=== PATIENT | female | born 1965 | race Caucasian/White ===

== ENCOUNTER → 2016-04-28 | Outpatient (CLI) | payer MEDICARE ==
--- NOTE | 2016-04-28 12:14 | WWHP ---
DATE OF SERVICE: 04/28/2016 CHIEF COMPLAINT: The patient is here for her routine gynecologic exam and mammogram. HPI: This is a 51-year-old G2, P2 with an LMP of 1996. She is status post vaginal hysterectomy for benign reasons. She states she has infrequent hot flashes. She has noticed some vaginal dryness recently. She was treated for bacterial vaginosis on a couple of occasions. She started having some symptoms following taking antibiotics for some other reason. She was tested for STDs by her primary care physician per the patient. She states that the symptoms finally did resolve after taking probiotics and Flagyl. She is currently without complaints. PAST MEDICAL HISTORY: Chronic hypertension, chronic back problems, depression and elevated cholesterol. Dr. Hernandez is her primary care physician. MEDICATIONS: 1. [place] one t.i.d. 2. Norvasc 10 mg daily. 3. Omeprazole 20 mg daily. 4. Lexapro 5 mg daily. 5. Lyrica 300 mg q.h.s. 6. Simvastatin 40 mg q.h.s. 7. Diclofenac potassium 50 mg weekly. Allergies to FLEXERIL, which caused mouth sores and BACTRIM, which caused muscle pain. PAST SURGICAL HISTORY: Vaginal hysterectomy in 1996, numerous back surgeries in the past, spinal cord stimulator in 1997, umbilical hernia repair 2014, colonoscopy 2013 and she has had about 4 of them in her lifetime and a previous benign breast biopsy. PAST OB HISTORY: Two vaginal deliveries. PAST [employer] HISTORY: She is status post vaginal hysterectomy for endometriosis and painful periods. She has no history of STDs. SOCIAL HISTORY: She smokes about 1 pack of cigarettes per day and has about 12 alcoholic drinks per week. She denies drug use. She is and has been with her boyfriend since 06/2015 and does not live with him. She is considered disabled. FAMILY HISTORY: Mother had colon cancer. Paternal grandmother had breast cancer. Father had an [place]. REVIEW OF SYSTEMS: She states she lost about 30 pounds during her divorce that was finalized last year. She has gained some of it back and is still done about 20 pounds from her original weight. She denies respiratory, cardiac, or GI problems. PHYSICAL EXAM: Blood pressure 127/67. Height 5 feet 9 inches. Weight 151 pounds. Temperature 97.2, pulse 69. This is a well-developed, well-nourished white female who is alert and oriented x3 in no acute distress. HEENT is within normal limits. NECK: Supple without mass or thyromegaly. CHEST AND LUNGS: Clear to auscultation. HEART: Regular rate and rhythm. Breasts are without mass or discharge. Axillary exam is negative for adenopathy. BACK: Negative for CVA tenderness. ABDOMEN: Soft, nontender, without palpable masses. PELVIC EXAM: External genitalia appears normal without significant atrophy. Vagina appears normal without significant atrophy. There is no unusual discharge. There is no evidence of prolapse. Bimanual exam is negative for mass or tenderness. Rectovaginal exam is negative for mass or tenderness and is negative for occult blood. EXTREMITIES: Nontender. IMPRESSION: 1. A 51-year-old female who is probably perimenopausal who is status post vaginal hysterectomy for benign reasons with normal gynecologic exam. 2. History of bacterial vaginosis symptoms, which was treated with resolved symptoms and no current evidence of vaginitis. PLAN: 1. Pap smears have been discontinued. 2. Self breast examination was discussed. 3. Mammogram will be done today. 4. The patient will call if she is developing vaginitis symptoms. 5. Osteoporosis prevention was discussed. 6. She will return in one year. [facility]
--- NOTE | 2016-04-29 07:30 | MM ---
Reason for exam: screening (asymptomatic). Last mammogram was performed 1 year and 1 month ago. History: Patient is postmenopausal. Family history of breast cancer in grandmother. Benign stereotactic core biopsy of the right breast, May 19, 2001. Core biopsy of the right breast. Excisional biopsy of the right breast. Physical Findings: A clinical breast exam by your physician is recommended on an annual basis and results should be correlated with mammographic findings. MG 3D Screening Mammo W/Cad Bilateral CC and MLO view(s) were taken. Prior study comparison: March 18, 2015, bilateral MG screening mammo w CAD. December 06, 2013, bilateral MG screening mammo w CAD. February 16, 2013, left diagnostic mammogram w/CAD. The breast tissue is heterogeneously dense. This may lower the sensitivity of mammography. Previous mammotome biopsy in the right breast. There is no discrete abnormality. ASSESSMENT: Negative, BI-RAD 1 RECOMMENDATION: Routine screening mammogram of both breasts in 1 year.
== END ==
LOC: WWCWWP 09:44
PROVIDERS: ATTEND Obstetrics & Gynecology
DX: Z12.31 Encounter for screening mammogram for malignant neoplasm of breast (principal)
CPT/HCPCS: 77063; G0202

== ENCOUNTER → 2016-06-29 | Outpatient (CLI) | payer MEDICARE, OTHER ==
--- NOTE | 2016-06-30 08:28 | XR ---
EXAMINATION TYPE: XR knee complete RT DATE OF EXAM: 06/29/2016 4:33 PM COMPARISON: NONE HISTORY: Pain TECHNIQUE: Four views are submitted. FINDINGS: Hypertrophic change and narrowing of the medial compartment of the knee and patellofemoral joint note d.. Osseous structures are intact. No acute fracture seen. IMPRESSION: 1. No acute fracture or dislocation. 2. Osteoarthritis
== END | disposition home or self-care (01) ==
LOC: RADXRMAIN 16:21
PROVIDERS: ATTEND Nurse Practitioner Family
DX: M17.11 Unilateral primary osteoarthritis, right knee (principal)

== ENCOUNTER → 2016-10-12 | Outpatient (CLI) | payer MEDICARE ==
--- NOTE | 2016-10-12 10:43 | XR ---
EXAMINATION TYPE: XR cervical spine comp DATE OF EXAM: 10/12/2016 COMPARISON: NONE HISTORY: Pain TECHNIQUE: Four views are submitted. FINDINGS: The odontoid is intact. There are no compression deformities. The prevertebral soft tissue structur es are within normal limits. Degenerative disc disease C6-C7 with mild facet arthropathy. Calcificat ion soft tissue the neck likely related carotid artery. IMPRESSION: 1. Degenerative disc disease and facet arthropathy C6-C7. Suggestion of posterior spondylosis which m ay be associated with canal stenosis or foraminal encroachment. Consider MRI follow-up.
== END | disposition home or self-care (01) ==
LOC: RAD 10:04
PROVIDERS: ATTEND Family Medicine
DX: M50.123 Cervical disc disorder at C6-C7 level with radiculopathy (principal); M46.92 Unspecified inflammatory spondylopathy, cervical region
CPT/HCPCS: 72050

== ENCOUNTER → 2016-12-29 | Outpatient (CLI) | payer MEDICARE, OTHER ==
--- NOTE | 2016-12-29 11:20 | XR ---
EXAMINATION TYPE: XR chest 2V DATE OF EXAM: 12/29/2016 COMPARISON: Prior chest x-ray 10/17/2015 HISTORY: Lobar pneumonia TECHNIQUE: Frontal and lateral views of the chest are obtained. FINDINGS: There is no focal air space opacity, pleural effusion, or pneumothorax seen. The cardiac silhouette size is within normal limits. Thoracic cord stimulator is in place as on prior exam. The osseous structures are intact. IMPRESSION: No acute cardiopulmonary process.
== END | disposition home or self-care (01) ==
LOC: RADXRMAIN 10:41
PROVIDERS: ATTEND Physician Assistant
DX: J18.1 Lobar pneumonia, unspecified organism (principal)
CPT/HCPCS: 71020

== ENCOUNTER → 2017-09-08 | Outpatient (CLI) | payer MEDICARE ==
--- NOTE | 2017-09-09 10:58 | MM ---
Reason for exam: screening (asymptomatic). Last mammogram was performed 1 year and 4 months ago. History: Patient is postmenopausal. Family history of breast cancer in grandmother. Benign stereotactic core biopsy of the right breast, May 19, 2001. Core biopsy of the right breast. Excisional biopsy of the right breast. Physical Findings: A clinical breast exam by your physician is recommended on an annual basis and results should be correlated with mammographic findings. MG 3D Screening Mammo W/Cad Bilateral CC and MLO view(s) were taken. Prior study comparison: April 28, 2016, bilateral MG 3d screening mammo w/cad. March 18, 2015, bilateral MG screening mammo w CAD. The breast tissue is heterogeneously dense. This may lower the sensitivity of mammography. There is no discrete abnormality. No significant changes when compared with prior studies. ASSESSMENT: Negative, BI-RAD 1 RECOMMENDATION: Routine screening mammogram of both breasts in 1 year.
== END | disposition home or self-care (01) ==
LOC: RADMAMWWP 16:13
PROVIDERS: ATTEND Family Medicine
DX: Z12.31 Encounter for screening mammogram for malignant neoplasm of breast (principal)
CPT/HCPCS: 77063; 77067

== ENCOUNTER → 2018-07-01 | Outpatient (CLI) | payer MEDICARE ==
--- NOTE | 2018-07-01 10:17 | XR ---
EXAMINATION TYPE: XR ribs bilat w pa chest xray DATE OF EXAM: 07/01/2018 COMPARISON: NONE HISTORY: Pain TECHNIQUE: PA view the chest and 8 views of the bilateral ribs are submitted FINDINGS: There is a stimulator device overlying the vertebral column. No pneumothorax. Lungs are jey ar. Heart size normal. Rib cage is intact. IMPRESSION: No acute displaced rib fracture.
== END ==
LOC: RADXRMAIN 09:44
PROVIDERS: ATTEND Physician Assistant
DX: R07.89 Other chest pain (principal)
CPT/HCPCS: 71111

== ENCOUNTER → 2019-12-25 | Outpatient (CLI) | payer MEDICARE ==
--- NOTE | 2019-12-25 12:11 | CT ---
EXAMINATION TYPE: CT cervical spine wo con DATE OF EXAM: 12/25/2019 COMPARISON: Cervical spine x-ray October 12, 2016 HISTORY: Cervical spondylosis with radiculopathy. Neck pain right side with left arm numbness, recent injury, pain stimulator CT DLP: 476 mGycm. Automated Exposure Control for Dose Reduction was Utilized. TECHNIQUE: CT scan of the cervical spine is obtained without contrast, axial images are obtained, sa gittal and coronal reformatted images are also reviewed. FINDINGS: Cervical spine is visualized in its entirety from C1 through upper thoracic levels, subtle grade 1 retrolisthesis C5 on C6 and C6 on C7 stable from 2017. Prevertebral soft tissue appears with in normal limits. The C1-C2 articulation is within normal limits on the coronal images. Vertebral earnestine dy heights are maintained. Mild to moderate disc space narrowing and spurring C6-C7 level. Posterior spurring effaces the anterior thecal sac at this level. Review of axial images shows C2-C3 level to appear within normal limits. Axial images at C3-C4 level show uncovertebral facet degenerative changes bilaterally causing mild-to -moderate right-sided neural foraminal narrowing. Broad-based posterior central disc protrusion effac ing intrathecal sac axial image 37. Axial images at C4-C5 level show uncovertebral facet degenerative changes bilaterally causing mild to moderate right-sided neural foraminal narrowing. Focal right paracentral disc protrusion effacing an terolateral thecal sac. Axial images at C5-C6 level shows broad-based right central disc protrusion effacing ventral thecal s ac on axial image 53, patent bilateral neural foramina. Axial images at C6-C7 level show posterior spur disc complex effacing anterior thecal sac with margin al spurring causing moderate left greater than right bilateral neural foraminal narrowing. Axial images at C7-T1 level show uncovertebral facet degenerative changes bilaterally with spinal can al is preserved. Thyroid gland felt within normal limits. Lung apices show no pneumothorax. [id number] calcified plaque bilateral carotid bulb level. IMPRESSION: Multilevel degenerative changes in the cervical spine as detailed above.
== END | disposition home or self-care (01) ==
LOC: RADCTMAIN 09:34
PROVIDERS: ATTEND Family Medicine
DX: M47.22 Other spondylosis with radiculopathy, cervical region (principal)
CPT/HCPCS: 72125

== ENCOUNTER → 2020-01-03 | Outpatient (CLI) | payer MEDICARE ==
--- NOTE | 2020-01-03 21:50 | CT ---
EXAMINATION TYPE: CT abdomen pelvis w con DATE OF EXAM: 01/03/2020 COMPARISON: 06/11/2015 INDICATION: incisional hernia DLP: 858 mGycm, Automated exposure control for dose reduction was used. CONTRAST: 100 mL of Isovue 300. Study performed with Oral Contrast TECHNIQUE: Axial images were obtained from above the diaphragm to the pubic rami in the axial plane a t 5 mm thick sections. Reconstructed images are reviewed on the computer in the coronal plane. FINDINGS: Limited CT sections are obtained the lung bases. The lung bases are clear. CT ABDOMEN: Liver: Some mild fatty infiltration may be within the liver. No discrete masses or cysts are evident. Spleen: Normal Pancreas: Normal Adrenal glands: The adrenal glands are normal. Gallbladder: Normal Kidneys: No masses are evident. No hydronephrosis is present. No cysts are present. Delayed images were obtained through the kidneys, which remain unremarkable. Aorta: Vascular calcification is within the aorta. Inferior vena cava: Normal. CT PELVIS: Loops of bowel within the abdomen and pelvis are normal. There are loops of bowel which are incom pletely distended or lack oral contrast limiting their evaluation. Appendix: Not identified. No suspicious dilated tubular structures or inflammatory changes are eviden t. Urinary bladder: Normal as visualized. Partially decompressed with limited evaluation. Genitourinary structures: Uterus and ovaries are not identified. Osseous structures: No suspicious lytic or sclerotic lesions. Electronic device overlies the right flank. Postsurgical pedicle screws are within the lumbar spine. IMPRESSIONS: 1. Mild fatty infiltration of the liver.
== END | disposition home or self-care (01) ==
LOC: RADCTMAIN 07:01
PROVIDERS: ATTEND Surgery
DX: K76.0 Fatty (change of) liver, not elsewhere classified (principal)
CPT/HCPCS: 74177; Q9967

== ENCOUNTER 2020-01-25 10:34 | Day surgery (SDC) | payer MEDICARE ==
[2020-01-22 14:30] VITALS: BMI 20.2
[~2020-01-25 10:34] MED LIST: LACTATED RINGERS 1,000 ML IV SCH; LIDOCAINE 1% (10MG/ML) FOR IV START INTRADERMA PRN
[2020-01-25] MEDS ORDERED: LACTATED RINGERS 1,000 ML IV ONE (11:20)
[2020-01-25 11:26] VITALS: TEMP 98.2
[2020-01-25] MEDS ORDERED: PROPOFOL 10 MG/ML 20 ML VIAL IV ONE (12:13)
[2020-01-25] MEDS ORDERED: LIDOCAINE 1% INJ 10MG/ML (20 ML MDV) ONE (12:13)
--- NOTE | 2020-01-25 12:14 | P.GSHP ---
History of Present Illness H&P Date: 01/25/20 Chief Complaint: GERD, screening colonoscopy This a 54-year-old female who presents today for EGD and screening colonoscopy. She's had issues with GERD. Past Medical History Past Medical History: GERD/Reflux, Hyperlipidemia, Hypertension Additional Past Medical History / Comment(s): ,hx migraines, arthritis back and rt hip, bruises easily, hiatal hernia History of Any Multi-Drug Resistant Organisms: None Reported Past Surgical History: Back Surgery, Hernia Repair, Hysterectomy, Orthopedic Surgery, Tubal Ligation Additional Past Surgical History / Comment(s): SPINAL NERVE ABLATION x 2, laminectomy/disectomy (total 5 back surgeries), spinal fusion, SPINAL STIMULATOR IMPLANT ([employer]), carpal tunnel rt wrist, colonoscopy, rt knee sx Past Anesthesia/Blood Transfusion Reactions: No Reported Reaction Additional Past Anesthesia/Blood Transfusion Reaction / Comment(s): . Smoking Status: Current every day smoker - Past Family History Mother Family Medical History: Cancer Additional Family Medical History / Comment(s): colon Father Additional Family Medical History / Comment(s): Father at age 72 due to kidney failure, legionnaire's pneumonia and history of coronary artery disease status post CABG and stents. Brother(s) Additional Family Medical History / Comment(s): Patient has 3 brothers. One br other has history of schizophrenia and bipolar and lives in [place] and is estranged from the family. One brother has history of neck fracture. One brother is healthy with no major medical problems. Patient does not have any sisters. She has 2 sons that are healthy. Medications and Allergies Home Medications Medication Instructions Recorded Confirmed Type Omeprazole [PriLOSEC] 20 mg PO FLAKITA-BRKFST #7 haylee. 12/18/14 01/22/20 Rx Escitalopram [Lexapro] 5 mg PO DAILY 01/22/20 01/22/20 History amLODIPine [Norvasc] 5 mg PO DAILY 01/22/20 01/22/20 History hydroCHLOROthiazide [Hydrodiuril] 25 mg PO DAILY 01/22/20 01/22/20 History Allergies Allergy/AdvReac Type Severity Reaction Status Date / Time cyclobenzaprine HCl Allergy MOUTH SORES Verified 01/22/20 14:20 [From Flexeril] sulfamethoxazole Allergy MUSCLE Verified 01/22/20 14:20 [From Bactrim] ACHES, THRUSH, YEAST INFECTION trimethoprim [From Bactrim] Allergy MUSCLE Verified 01/22/20 14:20 ACHES, THRUSH, YEAST INFECTION adhesive tape AdvReac RED RAW Verified 01/22/20 14:35 SKIN muscle relaxants AdvReac "feels Uncoded 01/22/20 14:20 drunk" Surgical - Exam Vital Signs Temp Pulse Resp BP Pulse Ox 98.2 F 58 L 18 167/96 100 01/25/20 11:23 01/25/20 11:23 01/25/20 11:23 01/25/20 11:23 01/25/20 11:23 - General well developed, well nourished, no distress - Eyes PERRL - ENT normal pinna - Neck no masses - Respiratory normal expansion - Cardiovascular Rhythm: regular - Abdomen Abdomen: soft, non tender Assessment and Plan Assessment: GERD. We'll perform EGD. We'll also perform screening colonoscopy
--- NOTE | 2020-01-25 12:35 | P.OP ---
Date of Procedure: 01/25/20 Preoperative Diagnosis: GERD Screening Colonoscopy Postoperative Diagnosis: Antral gastritis Diverticulosis Procedure(s) Performed: EGD Colonoscopy Anesthesia: MAC Surgeon: Sage Frank Pathology: other (Antrum) Condition: stable Disposition: PACU Description of Procedure: The patient's placed on the endoscopy table in the lateral position. She received IV sedation. The gastro-patient oropharynx and passed in the esophagus into the stomach. Scope was then placed through the pylorus. First and second portion of the duodenum appeared normal. Scope was then brought back the antrum and this appeared mildly inflamed. A biopsies performed. The scope was then retroflexed and the remainder of the stomach appeared normal. The GE junction was at 440 cm. The distal esophagus appeared normal. The proximal esophagus Appeared Normal. Scope was withdrawn for patient. Next digital rectal exam was performed which revealed no ebonized. The colonoscope was then placed patient anus and passed rotator entire colon. The ileocecal valve was visually is. The cecum, ascending and transverse colon appeared normal. In the descending and sigmoid colon there was mild diverticular changes. Scope was then brought back the rectum and this appeared normal. Scope was withdrawn for patient.
[2020-01-25 13:00] VITALS: BP 157/77; PULSE 74; RESP 17
== END 2020-01-25 13:24 | disposition home or self-care (01) ==
LOC: ORWHC2ENDO 10:34
PROVIDERS: ATTEND Surgery
DX: Z12.11 Encounter for screening for malignant neoplasm of colon (principal); K57.30 Diverticulosis of large intestine without perforation or abscess without bleeding; K29.50 Unspecified chronic gastritis without bleeding; K21.00 Gastro-esophageal reflux disease with esophagitis, without bleeding; Z80.0 Family history of malignant neoplasm of digestive organs; Z88.1 Allergy status to other antibiotic agents; Z88.2 Allergy status to sulfonamides; Z91.048 Other nonmedicinal substance allergy status; I10 Essential (primary) hypertension; E78.5 Hyperlipidemia, unspecified; F17.210 Nicotine dependence, cigarettes, uncomplicated; Z98.51 Tubal ligation status; Z79.899 Other long term (current) drug therapy; Z90.710 Acquired absence of both cervix and uterus; Z98.890 Other specified postprocedural states; Z87.19 Personal history of other diseases of the digestive system; G43.909 Migraine, unspecified, not intractable, without status migrainosus; M19.90 Unspecified osteoarthritis, unspecified site; Z82.49 Family history of ischemic heart disease and other diseases of the circulatory system; Z81.8 Family history of other mental and behavioral disorders; Z88.8 Allergy status to other drugs, medicaments and biological substances
CPT/HCPCS: 43239; 88305; G0105; J2001; J2704; 45378

== ENCOUNTER 2020-04-25 20:52 | Emergency (ER) | payer MEDICARE ==
[2020-04-25] MEDS ORDERED: methylPREDNISolone SOD SUCCI 125 MG/2 ML VIAL IM ONE (22:43)
--- NOTE | 2020-04-25 22:50 | ED ---
ENT HPI - General Chief complaint: ENT Stated complaint: lockjaw Time Seen by Provider: 04/25/20 22:12 Source: patient Mode of arrival: ambulatory Limitations: no limitations - History of Present Illness Initial comments: Patient is a 55-year-old female presenting to the emergency Department with complaints of having jaw pain for last 3 days. Patient was treated at [facility] last week for chronic neck pain, had some nerves burned in her neck. Patient states her pain has been improving however for the last 3 days she has been having pain in her right jaw, it is locking on her and she is not able to chew on that side. She denies any fevers or chills. She states she did call her surgeon who stated this is normal and it should take a couple more days. Patient states she is taking ibuprofen and Tylenol. She denies any chest pain or shortness of breath. She has no further complaints. - Related Data Home Medications Medication Instructions Recorded Confirmed Escitalopram [Lexapro] 5 mg PO DAILY 01/22/20 01/22/20 amLODIPine [Norvasc] 5 mg PO DAILY 01/22/20 01/22/20 hydroCHLOROthiazide [Hydrodiuril] 25 mg PO DAILY 01/22/20 01/22/20 Previous Rx's Medication Instructions Recorded Omeprazole [PriLOSEC] 20 mg PO -BRKFST #7 capsule. 12/18/14 predniSONE 50 mg PO DAILY 4 Days #4 tab 04/25/20 Allergies Allergy/AdvReac Type Severity Reaction Status Date / Time cyclobenzaprine HCl Allergy MOUTH SORES Verified 04/25/20 20:58 [From Flexeril] sulfamethoxazole Allergy MUSCLE Verified 04/25/20 20:58 [From Bactrim] ACHES, THRUSH, YEAST INFECTION trimethoprim [From Bactrim] Allergy MUSCLE Verified 04/25/20 20:58 ACHES, THRUSH, YEAST INFECTION adhesive tape AdvReac RED RAW Verified 04/25/20 20:58 SKIN muscle relaxants AdvReac "feels Uncoded 01/22/20 14:20 drunk" Review of Systems ROS Statement: Those systems with pertinent positive or pertinent negative responses have been documented in the HPI. ROS Other: All systems not noted in ROS Statement are negative. Past Medical History Past Medical History: GERD/Reflux, Hyperlipidemia, Hypertension Additional Past Medical History / Comment(s): ,hx migraines, arthritis back and rt hip, bruises easily, hiatal hernia History of Any Multi-Drug Resistant Organisms: None Reported Past Surgical History: Back Surgery, Hernia Repair, Hysterectomy, Orthopedic Surgery, Tubal Ligation Additional Past Surgical History / Comment(s): SPINAL NERVE ABLATION x 2, laminectomy/disectomy (total 5 back surgeries), spinal fusion, SPINAL STIMULATOR IMPLANT ([employer]), carpal tunnel rt wrist, colonoscopy, rt knee sx, nerves in neck burned. Past Anesthesia/Blood Transfusion Reactions: No Reported Reaction Additional Past Anesthesia/Blood Transfusion Reaction / Comment(s): . Past Psychological History: Depression Smoking Status: Current every day smoker Past Alcohol Use History: Daily, Occasional Past Drug Use History: Marijuana - Past Family History Mother Family Medical History: Cancer Additional Family Medical History / Comment(s): colon Father Additional Family Medical History / Comment(s): Father at age 72 due to kidney failure, legionnaire's pneumonia and history of coronary artery disease status post CABG and stents. Brother(s) Additional Family Medical History / Comment(s): Patient has 3 brothers. One brother has history of schizophrenia and bipolar and lives in [place] and is estranged from the family. One brother has history of neck fracture. One brother is healthy with no major medical problems. Patient does not have any sisters. She has 2 sons that are healthy. General Exam - General Exam Comments Initial Comments: GENERAL: Patient is well-developed and well-nourished. Patient is nontoxic and in no acute distress. HEAD: Atraumatic, normocephalic. EYES: Pupils equal round and reactive to light, extraocular movements intact, sclera anicteric, conjunctiva are normal. Eyelids were unremarkable. ENT: TMs normal, nares patent, oropharynx clear without exudates. Moist mucous membranes. There is some mild crepitus noted along bilateral TMJs NECK: Normal range of motion, supple without lymphadenopathy or JVD. LUNGS: Unlabored respirations. Breath sounds clear to auscultation bilaterally and equal. No wheezes rales or rhonchi. HEART: Regular rate and rhythm without murmurs, rubs or gallops. ABDOMEN: Soft, nontender, normoactive bowel sounds. No guarding, no rebound. No masses appreciated. : Deferred MUSCULOSKELETAL: Normal extremities with adequate strength and normal range of motion, no pitting or edema. No clubbing or cyanosis. NEUROLOGICAL: Patient is alert and oriented x 3. Motor and sensory are also intact. Cranial nerves II through XII grossly intact. Symmetrical smile. Normal speech, normal gait. PSYCH: Normal mood, normal affect. SKIN: Warm, Dry, normal turgor, no rashes or lesions noted. Limitations: no limitations Course Vital Signs 04/25/20 04/25/20 20:55 22:58 Temperature 97.6 F 98.7 F Pulse Rate 77 71 Respiratory 18 20 Rate Blood Pressure 162/82 155/65 O2 Sat by Pulse 99 98 Oximetry Medical Decision Making - Medical Decision Making Patient is a 55-year-old female here with complaints of right jaw pain after recent procedure to burn nerves in her neck. She states there is a lot of crepitus and pain, it is locking at times. Patient's vital signs are stable, afebrile. Her exam reveals some mild crepitus along both TMJs. Recommended a course of steroids to help with inflammation, should continue with Tylenol for discomfort. Also recommended ice to the area, soft foods only. She can follow up with her regular doctor. Patient is stable for discharge. Patient is in agreement with this plan of care. Return parameters were discussed with the patient and they verbalized understanding. Case discussed with Dr. Prieto. Disposition Clinical Impression: TMJ tenderness, right Disposition: HOME SELF-CARE Condition: Stable Instructions (If sedation given, give patient instructions): Temporomandibular Disorder (ED) Additional Instructions: Please return to the Emergency Department if symptoms worsen or any other concerns. Limit chewing hard foods, keep food soft. Continue with ibuprofen for swelling. Ice to the area. Trial of steroids. Follow-up with your surgeon if symptoms persist. Prescriptions: predniSONE 50 mg PO DAILY 4 Days #4 tab Is patient prescribed a controlled substance at d/c from ED?: No Referrals: Richardson Hernandez DO [Primary Care Provider] - 1-2 days
[2020-04-25 23:56] VITALS: BP 155/65; PULSE 71; RESP 20; TEMP 98.7
== END 2020-04-25 23:05 | disposition home or self-care (01) ==
LOC: EC 20:52
DX: M26.601 Right temporomandibular joint disorder, unspecified (principal); E78.5 Hyperlipidemia, unspecified; F17.200 Nicotine dependence, unspecified, uncomplicated; I10 Essential (primary) hypertension; K21.9 Gastro-esophageal reflux disease without esophagitis; Z79.52 Long term (current) use of systemic steroids; F12.90 Cannabis use, unspecified, uncomplicated; F32.9 Major depressive disorder, single episode, unspecified
CPT/HCPCS: 99283; 96372; J2930

== ENCOUNTER → 2021-09-25 | Outpatient (CLI) | payer MEDICARE ==
[2021-09-25 12:31] VITALS: BP 127/79; PULSE 97; RESP 18; TEMP 98.2
--- NOTE | 2021-09-25 13:42 | P.PAINPG ---
PQRS Measure Charge Sheet Comment: HISTORY OF PRESENT ILLNESS: 56 yr old female as a referral from [facility] presents today with severe and chronic cervical pain secondary to disc bulges, DDD, neuroforaminal stenoses, retro-listhesis and facet arthropathy for evaluation. Pt states her pain level is currently at 8/10 in intensity, localized in the lower aspect of her cervical spine, constant, sore/achy in character for the last few years with radiation of sharp pain towards the right shoulder. Pain is provoked with lifting or rotation of the neck. Pain is alleviated with medications (Tylenol, ibuprofen), topical cannabis, cervical RFA in the past, ice, heat, daily home stretching regimen, repositioning and rest. Patient was told by her orthopedic surgeon that physical therapy is contraindicated for her due to her multiple surgeries and implantable devices. PMH: GERD, Hyperlipidemia, HTN, OA, Hiatal Hernia PSH: Hysterectomy, Tubal Ligation, Cervical RFA (at [facility]), Lumbar RFA x 2, Lumbar Laminectomy / Discectomy x 5, Spinal Fusion, Spinal Neurostimulator Implant ([employer]), R CTR, Colonoscopy, R Knee Surgery, Cervical RFA, Hernia Repair SH: Daily tobacco use, Occasional ETOH use, +Cannabis use FH: Mo- Colon CA. Fa- CRF/Legionairre's Pneumonia/ CAD/ at age 73. Brother- Schizophrenia. Brother-Neck Fx. Brother- No Medical History. All: See list Meds: See list REVIEW OF ORGAN SYSTEMS: CONSTITUTIONAL: No fevers or chills. No recent weight loss. NEUROLOGICAL: + numbness and tingling along the distal extremities. No seizure disorders or headaches. MUSCULOSKELETAL: + pain PSYCHIATRIC: Denies current depression or suicidal thoughts. Physical Examinations : Constitutional : Cooperative , not in acute distress . Neurologic : Cranial nerve II to XII intact. No focal neurological deficits. Psychiatric : alert & oriented x 3. Matching mood & appropriate affect. Judgment & insight intact. Musculoskeletal : Cervical Spine Motor strength in the deltoid and biceps: Normal right side. Normal Left side Motor strength biceps and the wrist extensors: Normal right side . Normal left side Motor strength in the triceps muscle: Normal right side. Normal left side Deep tendon reflexes: Normal at the biceps. Normal at Brachioradialis. Normal at triceps Vertebral body tenderness to deep palpation over C6 Cervical facet loading test: positive bilaterally Spurling test: positive bilaterally Neck distraction test: positive bilaterally Ian sign: positive bilaterally Lumbar spine Motor strength lower extremities ,thigh and legs 5/5 Right side , 5/5 Left side Deep tendon reflexes : Normal Knee Jerk. Normal Ankle Jerk Vertebral body tenderness over Lumbar facet Loading Test: positive Right / positive Left Range of motion of the lumbar spine Flexion 30 degrees, extension 10 degrees Straight Leg Raise test: Left/ Right positive at degree Dalton test: positive right / positive left. Severe tenderness over the Sacroiliac joint on the Right / Left sides Gaenslen test: positive bilaterally Seated flexion test: positive bilaterally. Sacral spine : Severe tenderness over the Sacroiliac joint: right side / left side Range of motion: Flexion of the lumbar spine <60 degrees Range of motion: Extension of the lumbar spine <20 degrees Gaenslen's Test positive Yossi's Test positive Dalton test: positive right side / left side Thigh Thrust Test Sacral Thrust Test Imaging: CT without contrast of the cerical spine from 12/25/19 reviewed Assessment/ Plan : Cervical retrolisthesis, Cervical DDD, Cervical disc bulges Recommendation of LESTER C6-C7. May need a series of injections, up to 3 within a 6 mo period, for optimal pain relief. Risks, benefits of procedure discussed and patient verbalized understanding. Denies aspirin or anti- coagulant use or medical history of diabetes. Protocol for discontinuation/ continuation of medications guadalupe procedure discussed. All questions answered. I have spent greater than 30 minutes on patient care today. Dr Mcdonnell was available by phone for the evaluation of this patient. The time was used to review the medical records including relevant urine studies and Prescription history (MAPs), review of the available imaging, evaluation and examination of the patient, coordination of care with the medical staff and if applicable referring physicians, as well as creation of the medical record PQRS Narrative: Smoking Status Current every day smoker Home Medications: Ambulatory Orders Omeprazole [PriLOSEC] 20 mg PO FLAKITA-BRKFST #7 capsule. 12/18/14 Escitalopram [Lexapro] 5 mg PO DAILY 01/22/20 amLODIPine [Norvasc] 5 mg PO DAILY 01/22/20 hydroCHLOROthiazide [Hydrodiuril] 25 mg PO DAILY 01/22/20 predniSONE 50 mg PO DAILY 4 Days #4 tab 03/11/21 Controlled Substance Measures - Controlled Substance Measures Is patient prescribed a controlled substance at discharge?: No
== END ==
LOC: PNWHC3 09:17
PROVIDERS: ATTEND Specialist
DX: M48.02 Spinal stenosis, cervical region (principal); M50.10 Cervical disc disorder with radiculopathy, unspecified cervical region; M43.12 Spondylolisthesis, cervical region; E78.5 Hyperlipidemia, unspecified; M19.90 Unspecified osteoarthritis, unspecified site; I10 Essential (primary) hypertension; Z88.2 Allergy status to sulfonamides; Z91.048 Other nonmedicinal substance allergy status; Z88.8 Allergy status to other drugs, medicaments and biological substances; F17.200 Nicotine dependence, unspecified, uncomplicated
CPT/HCPCS: 99211

== ENCOUNTER 2021-10-21 06:48 | Day surgery (SDC) | payer MEDICARE ==
[2021-10-21] MEDS ORDERED: LACTATED RINGERS 1,000 ML IV SCH (07:15)
[2021-10-21 07:18] VITALS: TEMP 97
[2021-10-21] MEDS ORDERED: DEXAMETHASONE SOD PHOSPHATE 10 MG/ML 1 ML VIAL ONE (08:55)
[2021-10-21] MEDS ORDERED: IOPAMIDOL M200 10 ML VIAL ONE (08:55)
[2021-10-21] MEDS ORDERED: MIDAZOLAM 2 MG/2 ML VIAL ONE (08:55)
[2021-10-21] MEDS ORDERED: fentaNYL (PF) 50 MCG/ML 2 ML AMP ONE (08:55)
[2021-10-21] MEDS ORDERED: IV FLUID CONTINUATION 1,000 ML IV ONE (09:15)
--- NOTE | 2021-10-21 09:25 | FL ---
EXAMINATION TYPE: FL guided pain mgmt statistic DATE OF EXAM: 10/21/2021 CLINICAL HISTORY: Neck pain. TECHNIQUE: Fluoroscopy. COMPARISON: None. FINDINGS: Fluoroscopic guidance was provided during pain relief procedure performed by Dr. Palmer . A total of 5 seconds of fluoroscopic time was utilized during the procedure and 3 spot images are a cquired. Images acquired shows needle localization with contrast injection from posterior approach a t level of the cervical spine. IMPRESSION: As Above.
[2021-10-21 09:34] VITALS: RESP 16
[2021-10-21] MEDS ORDERED: ACETAMINOPHEN TAB 500 MG TAB ONE (09:43)
[2021-10-21] MEDS ORDERED: ACETAMINOPHEN TAB 500 MG TAB PO ONE (09:43)
[2021-10-21 10:07] VITALS: BP 143/73; PULSE 56
--- NOTE | 2021-10-21 11:11 | P.PCN ---
Date of Procedure: 10/21/21 Description of Procedure: Pre- and Post-operative Diagnosis: Cervical radiculopathy Procedure: Right-sided C6-C7 Inter-Laminar Cervical Epidural Steroid Injection under biplanar fluoroscopy #1 Surgeon: Mariann Saucedo Anesthesia: Local: 1% Lidocaine, IV sedation : Versed 2 mg, and fentanyl 100 g. Sedation supervision start time : 859 sedation Supervision end time: 910 Complications: None. Estimated blood loss: None Specimens removed: None Fluoroscopic image: saved to electronic medical records. Indications for Procedure: The patient has been suffering from neck pain and pain radiating to the upper extremity . Inadequate pain control with pharmacologic regimen. An inter-laminar approach cervical epidural steroid injection was scheduled for the patient. Procedure and Findings: The patient was seen and examined in the holding area. The written informed consent was obtained after explaining the risks, benefits, alternatives of the procedure to the patient. The patient was brought to the procedure room and was placed in the prone position on the operating table. A pillow was placed under the upper chest. Standard anesthesia monitoring was done through out the procedure. Timeout was completed. The skin preparation was done with ChloraPrep 1 and draping was done in usual sterile fashion. Sterile technique was observed throughout the procedure. Under fluoroscopic guidance, the C6-C7 inter-laminar space was identified. 3 ml of 1% Lidocaine was injected with a 25 gauge needle to achieve adequate local anesthesia of the skin and subcutaneous tissue. A 20 gauge, 3.5 inch Tuohy type epidural needle was placed and gradually advanced up to the epidural space using loss of resistance technique and fluoroscopic guidance. Lateral, oblique fluoroscopic views confirm the needle position. No paresthesia was noted. A negative aspiration was confirmed and then 1 ml of Isovue-200 was injected. A good dye spread was seen in the epidural space and it was negative for any intrathecal, intraneural or intravascular spread. A total of 5 ml solution containing 20 mg Dexamethasone, and 3 ml preservative-free Normal Saline was injected slowly with intermittent aspiration. The patient tolerated 4 mL of blo ck solution. 1 mL of block solution discarded. The needle was removed intact, area was cleaned and bandage was applied. Disposition : The patient tolerated the procedure very well. The patient was transferred to the recovery room and remained stable until discharged home. The patient was given detailed discharge instructions for bleeding, infection, increased pain at the injection site, and was advised to seek immediate medical attention should significant side effects develop. The patient will be followed up with our Pain Clinic within 2-4 weeks for follow-up visit. Note: Patient complained mild Discomfort, and mild headache in the recovery, patient denied any blurred vision, double vision, dizziness, or vertigo. Patient was able to walk from recovery room to restroom without any difficulty. Denied any history of wobbly gait, bowel or bladder problems. Upper extremity strength normal to her baseline. Mild tenderness, and trigger points positive over right trapezius area more worse than left side. Patient felt better at the time of discharge regarding her headache, and neck discomfort.
== END 2021-10-21 10:15 | disposition home or self-care (01) ==
LOC: ORPAIN 06:48
DX: M50.11 Cervical disc disorder with radiculopathy, high cervical region (principal); I10 Essential (primary) hypertension; M19.90 Unspecified osteoarthritis, unspecified site; Z88.2 Allergy status to sulfonamides
CPT/HCPCS: 62321; J2250; J1100; J3010; Q9966

== ENCOUNTER → 2021-11-12 | Outpatient (CLI) | payer MEDICARE ==
[2021-11-12 10:10] VITALS: BP 146/82; PULSE 87; RESP 18; TEMP 99.4
--- NOTE | 2021-11-12 14:52 | P.PAINPG ---
PQRS Measure Charge Sheet Comment: A 56 yr old female with a history of severe and chronic neck pain secondary to cervical degenerative disc diseases and spondylosis with facet arthropathy without myelopathy presents today for evaluation s/p R interlaminar C6-C7 NOELLE. Pt states she experienced 90% pain relief x 4 days s/p procedure. Pain level is currently at 6/10 in intensity, constant, localized to R lower neck, dull/ achy in character w shooting towards R shoulder. Pain is provoked as high as 9/10 by hyperextension, RUE overuse. Pain is alleviated with home guided exercises at [facility], massage therapy bi monthly in Sep 2021, heat, ice, meds (Tyl, Ibu), +Cannnabis, repositioning and rest. Interventional pain procedures completed include R interlaminar NOELLE C6-7 x1. Patient is currently on Tylenol, Ibuprofen Patient denies any side effects of the medication(s), denies excessive drowsiness or sleepiness, denies suicidal ideation and reports that the current pain medication is helping to control the pain and improve activities of daily living. Patient denies any motor or sensory deficits. Patient denies any fever or night sweats, denies any change in the bowel movements or urination. Physical Examination: -Constitutional: Cooperative. Not in acute distress . - Neurologic: Cranial nerve II to XII intact. No focal neurological deficits. - Psychatric: Alert & oriented x 3. Matching mood & appropriate affect. Judgment and insight intact. - Musculoskeletal: Cervical spine: Muscle bulk/ tone/ strength in the bilateral upper extremities normal Vertebral body tenderness to palpation over Spurling test positive over R C3-C4 Distraction test positive Facet loading test positive over R C3-C4 w accompanying paraspinal TTP Thoracic spine Muscle bulk / tone/ strength in the bilateral paraspinal muscles normal Vertebral body tender to palpation over Facet loading test positive Lumbar spine: Motor bulk/ tone/ strength lower extremities , thigh and legs : 5/5 Deep tendon reflexes : Normal Knee Jerk. Normal Ankle Jerk . Vertebral body tenderness to palpation over Lumbar Facet Loading Test positive Straight Leg Raise: positive at 30 degrees right side/ left side Gaenslen's Test positive Sacral spine : Severe tenderness over the Sacroiliac joint: right side / left side Range of motion: Flexion of the lumbar spine <60 degrees Range of motion: Extension of the lumbar spine <20 degrees Gaenslen's Test positive Yossi's Test positive Dalton test: positive right side / left side Thigh Thrust Test Sacral Thrust Test Assessment and plan: Chronic neck pain secondary to cervical degenerative disc disease , spondylosis with facet arthropathy without myelopathy Recommendation of R medial RFA C3-C4. Pt exhibited sufficient and optimal pain relief when procedure was performed at [facility] in [place] approximately 2 yrs ago. Risks, benefits of procedure discussed and pt v erbalized understanding. Denies anticoagulant use or medical history of diabetes. All patient questions answered I have spent less than 30 minutes on patient care today. Dr Mcdonnell was avai lable by phone for the evaluation of this patient. The time was used to review the medical records including relevant urine studies and Prescription history (MAPs), review of the available imaging, evaluation and examination of the patient, coordination of care with the medical staff and if applicable referring physicians, as well as creation of the medical record - Pain Location Right Lower Neck Non-Pharmacological Interventions: Heat, Home Exercise, Ice, Inactivity, Massage, Position/Reposition, Stretching Pharmacological Interventions: Epidural, PRN Medication, Topical Medication PQRS Narrative: Smoking Status Current every day smoker Hx Alcohol Use (MH) Yes Home Medications: Ambulatory Orders Omeprazole [PriLOSEC] 20 mg PO AC-BRKFST #7 capsule. 12/18/14 amLODIPine [Norvasc] 5 mg PO DAILY 01/22/20 hydroCHLOROthiazide [Hydrodiuril] 25 mg PO DAILY 01/22/20 Acetaminophen [Tylenol Extra Strength] 1,000 mg PO Q8HR PRN 10/17/21 tiZANidine [Zanaflex] 2 mg PO Q8HR PRN 10/17/21 Controlled Substance Measures - Controlled Substance Measures Is patient prescribed a controlled substance at discharge?: No
== END | disposition home or self-care (01) ==
LOC: PNWHC3 09:24
PROVIDERS: ATTEND Specialist
DX: M47.892 Other spondylosis, cervical region (principal); M50.30 Other cervical disc degeneration, unspecified cervical region
CPT/HCPCS: 99211

== ENCOUNTER 2021-11-20 08:17 | Day surgery (SDC) | payer MEDICARE ==
[2021-11-20] MEDS: LACTATED RINGERS 1,000 ML IV SCH ×2 (08:30→09:07)
[2021-11-20 08:40] VITALS: TEMP 96.6
[2021-11-20] MEDS ORDERED: PROPOFOL 10 MG/ML 20 ML VIAL IV ONE (09:10)
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
--- NOTE | 2021-11-20 09:27 | P.OP ---
Date of Procedure: 11/20/21 Preoperative Diagnosis: Diarrhea Colitis Postoperative Diagnosis: Normal colonoscopy Rectal biopsy pending Procedure(s) Performed: Colonoscopy Anesthesia: MAC Surgeon: Sage Frank Pathology: other (Rectum) Condition: stable Disposition: PACU Description of Procedure: Patient's placed on the endoscopy table in the lateral position. She received IV sedation. Digital rectal exam was performed. This revealed no abnormalities. Flexible colonoscope was then placed patient anus and passed throughout the entire colon. Ileocecal valve was visualized. The cecum, ascending and transverse colon appeared normal. The descending and sigmoid colon appeared normal. Scope was then brought back the rectum. There was no obvious inflammation. Due to the patient's symptoms of diarrhea a random rectal biopsy was performed. The scope was withdrawn for patient.
[2021-11-20 09:33] VITALS: RESP 16
[2021-11-20 09:50] VITALS: BP 136/83; PULSE 68
== END 2021-11-20 10:05 | disposition home or self-care (01) ==
LOC: ORWHC2ENDO 08:17
PROVIDERS: ATTEND Surgery
DX: K63.89 Other specified diseases of intestine (principal); K52.9 Noninfective gastroenteritis and colitis, unspecified; I10 Essential (primary) hypertension; E78.5 Hyperlipidemia, unspecified; K21.9 Gastro-esophageal reflux disease without esophagitis; M19.90 Unspecified osteoarthritis, unspecified site; F17.200 Nicotine dependence, unspecified, uncomplicated; G43.909 Migraine, unspecified, not intractable, without status migrainosus; Z79.899 Other long term (current) drug therapy; Z80.0 Family history of malignant neoplasm of digestive organs; Z82.49 Family history of ischemic heart disease and other diseases of the circulatory system; Z88.1 Allergy status to other antibiotic agents; Z88.2 Allergy status to sulfonamides
CPT/HCPCS: 88305; 45380; J2704

== ENCOUNTER 2021-12-23 11:20 | Emergency (ER) | payer MEDICARE ==
[2021-12-23 11:27] VITALS: BP 123/84; PULSE 89; RESP 20; TEMP 97.9
[2021-12-23] MEDS ORDERED: ACET/COD 300 MG/30 MG STARTER PACK 6 TAB BTL PO STA (11:52)
[2021-12-23] MEDS ORDERED: HYDROcodone/APAP 5-325MG 1 EACH TAB PO STA (11:52)
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
== END 2021-12-23 12:26 | disposition home or self-care (01) ==
LOC: EC 11:20
DX: M62.838 Other muscle spasm (principal); K21.9 Gastro-esophageal reflux disease without esophagitis; E78.5 Hyperlipidemia, unspecified; I10 Essential (primary) hypertension; F32.A Depression, unspecified; F17.200 Nicotine dependence, unspecified, uncomplicated; F12.90 Cannabis use, unspecified, uncomplicated; Z88.2 Allergy status to sulfonamides; Z88.8 Allergy status to other drugs, medicaments and biological substances; Z79.899 Other long term (current) drug therapy
CPT/HCPCS: 99283; 96372; J3360

== ENCOUNTER 2021-12-26 07:51 | Day surgery (SDC) | payer MEDICARE ==
[~2021-12-26 07:51] MED LIST changes: -LACTATED RINGERS 1,000 ML IV SCH
[2021-12-26 08:10] VITALS: RESP 16; TEMP 97.7
[2021-12-26 08:15] LABS: Glucose,Whole Blood 90 mg/dL (70-110)
[2021-12-26 08:15] LABS: Glucose,Whole Blood 41 mg/dL (70-110)
[2021-12-26] MEDS: LACTATED RINGERS 1,000 ML IV SCH ×2 (08:16→08:45)
[2021-12-26] MEDS ORDERED: ROPIVACAINE 5 MG/ML 20 ML AMPULE ONE (08:47)
[2021-12-26] MEDS ORDERED: fentaNYL (PF) 50 MCG/ML 2 ML AMP ONE (08:47)
[2021-12-26] MEDS ORDERED: MIDAZOLAM 2 MG/2 ML VIAL ONE (08:47)
[2021-12-26] MEDS ORDERED: methylPREDNISolone ACETATE 40 MG/ML 1 ML VIAL ONE (08:47)
--- NOTE | 2021-12-26 09:19 | P.PCN ---
Date of Procedure: 12/26/21 Procedure(s) Performed: PREOPERATIVE DIAGNOSIS:1 -Cervical spondylosis with Facet Arthropathy without myelopathy. 2-cervicogenic headache. 3-occipital neuralgia POSTOPERATIVE DIAGNOSIS: Same as preoperative diagnosis. PROCEDURES:1- Radiofrequency thermocoagulation,right C3, C4 medial branch with Fluroscopy Guidence(fluoroscopy was available in Radiology department ) 2- Radiofrequency thermocoagulation of the right third occipital (to denervate the Right 3 rd occipital nerve,and right facet joint at C3- 4 ) ANESTHESIA: Monitored anesthesia care as per anesthesia department . EBL: Minimal PROCEDURE INDICATION: The patient with neck pain secondary to cervical arthropathy who had more than 80% relief of her pain with previous diagnostic cervical medial branch block. PROCEDURE DESCRIPTION / TECHNIQUE: The patient was seen and identified in the preoperative area. Risks, benefits, complications, and alternatives were discussed with the patient, the patient agreed to proceed with the procedure and signed the consent. IV was started. Vital signs remained stable throughout the procedure. Patient was taken to the OR and time out was completed. The patient was placed in the prone position on the procedure table. A pillow was placed under the patients chest to increase the cervical interlaminar space. The cervical area was prepped and draped in the usual sterile fashion. Critical pause was taken. Vital signs were closely monitored during the procedure. Conscious sedation was used during the procedure to decrease patients anxiety. Using cross-table lateral fluoroscopy, the centroid of the trapezoid of Right C3, C4,were identified, marked, and localized with 1% lidocaine. Subsequently, a 20 epefz432-ic radiofrequency cannula with a 10-mm active tip was advanced guided by fluoroscopy to the centroid of the trapezoid of Right C3, C4, . Needle tip position was confirmed at the centroid of the trapezoids of right C3, C4, with anteroposterior fluoroscopy. For the right third occipital nerve and other 20-gauge 100 mm cannula placed at the center of the facet joint that is formed between the C2 and C3 on the right side, then the needles placement confirmed with AP and lateral view,then Each site then underwent sensory testing at 50 Hz and 0 to 1 volt and motor testing at 2 Hz and 0 to 3 volt with local stimulation, but no radicular symptoms down the arm. Thereafter each sites underwent radiofrequency thermocoagulation at 80 degrees celsius for 90 seconds after injecting 0.5 ml of PF Ropivacaine 0.5 %. After thermocoagulation, 1 ml of the block solution containing Depo-Medrol 40 mg and 3 mL of preservative-free normal saline was injected at the C3, C4,and the 3rd occipital nerve levels after negative aspiration of CSF and blood and with no paresthesias. Cannulas were retracted while injecting lidocaine 1% until the needle is out. Skin was cleansed and bandages were applied. COMPLICATIONS: No acute complications. DISPOSITION / PLANS: The patient was placed in a supine position and transferred to the recovery area in a stable condition for observation and was discharged from the recovery room after meeting discharge criteria. Home discharge instructions given to the patient by the staff. The patient was reexamined prior to discharge. The patient will schedule a follow up in the clinic in 2-4 weeks.
[2021-12-26] MEDS ORDERED: IV FLUID CONTINUATION 1,000 ML IV ONE (09:20)
--- NOTE | 2021-12-26 09:28 | FL ---
EXAMINATION TYPE: FL guided pain mgmt statistic DATE OF EXAM: 12/26/2021 HISTORY: Fluoroscopy time 8 seconds of fluoroscopy provided. IMPRESSION: 1. Fluoroscopy time.
[2021-12-26 09:33] VITALS: BP 165/74; PULSE 80
== END 2021-12-26 09:48 | disposition home or self-care (01) ==
LOC: ORPAIN 07:51
PROVIDERS: ATTEND Specialist
DX: M47.812 Spondylosis without myelopathy or radiculopathy, cervical region (principal); M54.81 Occipital neuralgia; I10 Essential (primary) hypertension; E78.5 Hyperlipidemia, unspecified; F17.210 Nicotine dependence, cigarettes, uncomplicated; Z88.2 Allergy status to sulfonamides
CPT/HCPCS: 64633; J2250; J1030; J3010; J2795

== ENCOUNTER → 2022-01-15 | Outpatient (CLI) | payer MEDICARE ==
[2022-01-15 12:26] VITALS: BP 134/73; PULSE 82; RESP 16; TEMP 98.8
--- NOTE | 2022-01-15 14:24 | P.PAINPG ---
PQRS Measure Charge Sheet Comment: A 56 yr old female with a history of severe and chronic YEN pain secondary to occipital neuralgia and cervicogenic YEN presents today for evaluation s/p R C2- C3, C3-C4 RFA. Pt states she experienced 50% pain relief x 2 wks s/p procedure. Pain level is currently at 5 /10 in intensity, constant, localized in the R upper cervical spine, sharp in character w shooting towards the R scalp & head. Pain is provoked by hyperextension. Pain is alleviated with daily home exercise regimen, ice, meds (Tyl, Zanaflex), topicals, injections, +Cannabis and rest. Interventional pain procedures completed include ANGELICA, R MBB C2-C4 x1 Patient is currently on Tylenol, Zanaflex Patient denies any side effects of the medication(s), denies excessive drowsiness or sleepiness, denies suicidal ideation and reports that the current pain medication is helping to control the pain and improve activities of daily living. Patient denies any motor or sensory deficits. Patient denies any fever or night sweats, denies any change in the bowel movements or urination. Physical Examination: -Constitutional: Cooperative. Not in acute distress . - Neurologic: Cranial nerve II to XII intact. No focal neurological deficits. - Psychatric: Alert & oriented x 3. Matching mood & appropriate affect. Judgment and insight intact. - Musculoskeletal: Cervical spine: Muscle bulk/ tone/ strength in the bilateral upper extremities normal Vertebral body tenderness to palpation over R paraspinal spasms over C2-C7 Spurling test positive Distraction test positive Facet loading test positive Thoracic spine Muscle bulk / tone/ strength in the bilateral paraspinal muscles normal Vertebral body tender to palpation over Facet loading test positive Lumbar spine: Motor bulk/ tone/ strength lower extremities , thigh and legs : 5/5 Deep tendon reflexes : Normal Knee Jerk. Normal Ankle Jerk . Vertebral body tenderness to palpation over Lumbar Facet Loading Test positive Straight Leg Raise: positive at 30 degrees right side/ left side Gaenslen's Test positive Sacral spine : Severe tenderness over the Sacroiliac joint: right side / left side Range of motion: Flexion of the lumbar spine <60 degrees Range of motion: Extension of the lumbar spine <20 degrees Gaenslen's Test positive Dalton test: positive right side / left side Thigh Thrust Test Sacral Thrust Test Assessment and plan: Chronic YEN pain secondary to occipital neuralgia and cervicogenic headache Recommendation of R TPIs C2-T2. May need a series of injections, up to every 2-3 mo , for optimal pain relief. Risks, benefits of procedure discussed and pt verbalized understanding. Admits to anticoagulant use or medical history of diabetes. Protocol for discontinuation/ continuation of medications guadalupe procedure discussed. Pt also understands she may follow up w her orthopedic surgeon to explore additional treatment options. All patient questions answered I have spent less than 30 minutes on patient care today. Dr Mcdonnell was available by phone for the evaluation of this patient. The time was used to review the medical records including relevant urine studies and Prescription history (MAPs), review of the available imaging, evaluation and examination of the patient, coordination of care with the medical staff and if applicable referring physicians, as well as creation of the medical record PQRS Narrative: Smoking Status Current every day smoker Hx Alcohol Use (MH) Yes Home Medications: Ambulatory Orders amLODIPine [Norvasc] 5 mg PO DAILY 01/22/20 hydroCHLOROthiazide [Hydrodiuril] 25 mg PO DAILY 01/22/20 Acetaminophen [Tylenol Extra Strength] 1,000 mg PO Q8HR PRN 10/17/21 tiZANidine [Zanaflex] 2 mg PO Q8HR PRN 10/17/21 Acetaminophen-Codeine 300-30mg [Tylenol w/codeine #3] 1 tab PO Q6H PRN 12/24/21 Ibuprofen [Motrin] 600 mg PO Q6HR PRN 12/24/21 Omeprazole [PriLOSEC] 20 mg PO BID 12/24/21 Controlled Substance Measures - Controlled Substance Measures Is patient prescribed a controlled substance at discharge?: No
== END ==
LOC: PNWHC3 12:00
PROVIDERS: ATTEND Specialist
DX: M54.81 Occipital neuralgia (principal); F17.200 Nicotine dependence, unspecified, uncomplicated; Z88.2 Allergy status to sulfonamides; Z88.8 Allergy status to other drugs, medicaments and biological substances; Z91.048 Other nonmedicinal substance allergy status
CPT/HCPCS: 99211

== ENCOUNTER 2022-03-03 09:52 | Day surgery (SDC) | payer MEDICARE ==
[~2022-03-03 09:52] MED LIST changes: +LACTATED RINGERS 1,000 ML IV SCH
[2022-03-03 10:29] VITALS: RESP 18; TEMP 96.9
[2022-03-03 10:43] LABS: Glucose,Whole Blood 97 mg/dL (70-110)
[2022-03-03] MEDS ORDERED: ROPIVACAINE 5 MG/ML 20 ML AMPULE ONE (11:02)
[2022-03-03] MEDS ORDERED: MIDAZOLAM 2 MG/2 ML VIAL ONE (11:02)
[2022-03-03] MEDS ORDERED: methylPREDNISolone ACETATE 40 MG/ML 1 ML VIAL ONE (11:02)
[2022-03-03] MEDS ORDERED: fentaNYL (PF) 50 MCG/ML 2 ML AMP ONE (11:02)
[2022-03-03] MEDS ORDERED: IV FLUID CONTINUATION 1,000 ML IV ONE (11:15)
--- NOTE | 2022-03-03 11:17 | P.PCN ---
Date of Procedure: 03/03/22 Procedure(s) Performed: Procedure= 1-trigger point injection right side cervical paraspinal muscles C2 to T2, total of 6 trigger point injections. Preoperative diagnosis= 1-myofascial pain syndrome and cervical paraspinal muscles. 2-cervical spondylosis with cervical facet arthropathy Postoperative diagnosis=Same as preop Diagnosis . Complication = none Condition= stable Anesthesia= moderate sedation with intravenous Versed 2 mg , and fentanyl 50 micrograms . Sedation start time: 1105 Sedation end time : 1111 Indication for the procedure= patient complaining of low back pain , examination was positive for multiple trigger point identified in the right side cervical paraspinal muscles and she is here today to have trigger point injections. Description of the procedure= procedure risk and benefits discussed with the patient, including but not limited, risk of infection and bleeding, and ALLERGIC reaction to the medication and not complete pain relief and patient agreed with the preceding patient taken to the operating room, placed in prone position or standard monitors applied to the patient then after induction of anesthesia back prepped with chlorhexidine 3 times , then after that each of the trigger point injected with mixture of ropivacaine 0.5% 12 mL, which is mixed with 40 mg of Depo-Medrol, then each of the trigger point injected with 2 mL of the mixture, using 25-gauge needle, injection done after negative aspiration, and there was no paresthesia during the injection ,total of 6 trigger point injected on the right side cervical, and thoracic paraspinal muscles on the right C2 to right T2, patient tolerated the procedure well without any complication, and she will follow in the pain clinic in a few weeks for reevaluation.
[2022-03-03 11:36] VITALS: BP 136/79; PULSE 75
== END 2022-03-03 11:49 | disposition home or self-care (01) ==
LOC: ORPAIN 09:52
PROVIDERS: ATTEND Specialist
DX: M79.18 Myalgia, other site (principal); M47.812 Spondylosis without myelopathy or radiculopathy, cervical region
CPT/HCPCS: 20552; J2250; J1030; J3010; J2795

== ENCOUNTER → 2022-03-19 | Outpatient (CLI) | payer MEDICARE ==
[2022-03-19 11:12] VITALS: BP 130/72; PULSE 75; RESP 18; TEMP 97.9
--- NOTE | 2022-03-19 15:01 | P.PAINPG ---
PQRS Measure Charge Sheet Comment: A 57 yr old female with a history of severe and chronic neck pain secondary to cervical DDD and spondylosis with facet arthropathy without myelopathy presents today for evaluation s/p BL cervical TPIs. Pt states she experienced 80 % pain relief x 2-3 wks s/p procedure. Pain level is provoked at 3 /10 in intensity, constant, localized in the R cervical spine, tight in character w shooting towards the shoulders. Pain is provoked by laying on sides. Pain is alleviated with heat, ice, medications (Tyl), topicals, repositioning and rest. Interventional pain procedures completed include BL TPIs C2-T1, R RFA C2-C3/ 3rd ON, NOELLE C6-C7 x1 Patient is currently on THC ointment, Tylenol Patient denies any side effects of the medication(s), denies excessive drowsiness or sleepiness, denies suicidal ideation and reports that the current pain medication is helping to control the pain and improve activities of daily living. Patient denies any motor or sensory deficits. Patient denies any fever or night sweats, denies any change in the bowel movements or urination. Physical Examination: -Constitutional: Cooperative. Not in acute distress . - Neurologic: Cranial nerve II to XII intact. No focal neurological deficits. - Psychatric: Alert & oriented x 3. Matching mood & appropriate affect. Judgment and insight intact. - Musculoskeletal: Cervical spine: Muscle bulk/ tone/ strength in the bilateral upper extremities normal Vertebral body tenderness to palpation over Spurling test positive Distraction test positive Facet loading test positive Thoracic spine Muscle bulk / tone/ strength in the bilateral paraspinal muscles normal Vertebral body tender to palpation over Facet loading test positive Lumbar spine: Motor bulk/ tone/ strength lower extremities , thigh and legs : 5/5 Deep tendon reflexes : Normal Knee Jerk. Normal Ankle Jerk . Vertebral body tenderness to palpation over Lumbar Facet Loading Test positive Straight Leg Raise: positive at 30 degrees right side/ left side Gaenslen's Test positive Sacral spine : Severe tenderness over the Sacroiliac joint: right side / left side Range of motion: Flexion of the lumbar spine <60 degrees Range of motion: Extension of the lumbar spine <20 degrees Gaenslen's Test positive Dalton test: positive right side / left side Thigh Thrust Test Sacral Thrust Test Assessment and plan: Chronic neck pain secondary to cervical DDD, spondylosis with facet arthropathy without myelopathy Patient exhibited sufficient and substantial pain relief with prior TPI of the cervical spine. She will manage residual pain at home and may return to the clinic on an as-needed basis. All patient questions answered I have spent less than 30 minutes on patient care today. Dr Mcdonnell was avail able by phone for the evaluation of this patient. The time was used to review the medical records including relevant urine studies and Prescription history (MAPs), review of the available imaging, evaluation and examination of the patient, coordination of care with the medical staff and if applicable referring physicians, as well as creation of the medical record PQRS Narrative: Smoking Status Current every day smoker Hx Alcohol Use (MH) Yes Home Medications: Ambulatory Orders amLODIPine [Norvasc] 5 mg PO DAILY 01/22/20 hydroCHLOROthiazide [Hydrodiuril] 25 mg PO DAILY 01/22/20 Acetaminophen [Tylenol Extra Strength] 1,000 mg PO Q8HR PRN 10/17/21 tiZANidine [Zanaflex] 4 mg PO Q8HR PRN 10/17/21 Ibuprofen [Motrin] 600 mg PO Q6HR PRN 12/24/21 Omeprazole [PriLOSEC] 20 mg PO BID 12/24/21 Controlled Substance Measures - Controlled Substance Measures Is patient prescribed a controlled substance at discharge?: No
== END | disposition home or self-care (01) ==
LOC: PNWHC3 10:17
PROVIDERS: ATTEND Specialist
DX: M47.812 Spondylosis without myelopathy or radiculopathy, cervical region (principal); M71.38 Other bursal cyst, other site; M54.2 Cervicalgia; M48.02 Spinal stenosis, cervical region; Z88.8 Allergy status to other drugs, medicaments and biological substances; Z88.2 Allergy status to sulfonamides; Z88.9 Allergy status to unspecified drugs, medicaments and biological substances; F17.210 Nicotine dependence, cigarettes, uncomplicated
CPT/HCPCS: 99211

== ENCOUNTER → 2022-05-15 | Outpatient (CLI) | payer MEDICARE ==
[2022-05-15 14:50] LABS: Basophils # (A) 0.08 X 10*3/uL (0.00-0.10); Basophils % (A) 0.9 %; Eosinophils # (A) 0.11 X 10*3/uL (0.04-0.35); Eosinophils % (A) 1.3 %; HGB 12.9 g/dL (12.0-15.0); Immature Grans, Automated 0.5 %; Lymphocytes # (A) 2.29 X 10*3/uL (0.90-5.00); Lymphocytes % (A) 27.1 %; MCH 31.6 pg (27.0-32.0); MCHC 33.1 g/dL (32.0-37.0); MCV 95.6 fL (80.0-97.0); Mean Platelet Volume 10.8 fL (9.5-12.2); Monocytes # (A) 0.61 X 10*3/uL (0.20-1.00); Monocytes % (A) 7.2 %; NRBC Per 100 WBC 0 /100 WBCS (0.0-0.0); Neutrophils # (A) 5.32 X 10*3/uL (1.80-7.70); Platelet Count 426 X 10*3/uL (140-440); RBC 4.08 X 10*6/uL (4.10-5.20); RDW 14.4 % (11.5-14.5); WBC 8.45 X 10*3/uL (4.50-10.00)
[2022-05-15 15:10] LABS: African American GFR (CKD) 114.1 (60.0-200.0); Anion Gap 9.7 mmol/L (10.00-18.00); BUN/Creat Ratio 15.17 Ratio (12.00-20.00); Blood Urea Nitrogen 10.1 mg/dL (9.0-27.0); Calcium 9.8 mg/dL (8.7-10.3); Carbon Dioxide 27.7 mmol/L (20.0-27.5); Non-African American GFR(CKD) 98.5 (60.0-200.0)
[2022-05-15 16:02] LABS: INR 0.89 (0.90-1.11); Prothrombin Time 10.1 sec (9.9-11.9)
== END | disposition home or self-care (01) ==
LOC: LABPAT 08:24
PROVIDERS: ATTEND Orthopaedic Surgery
DX: Z01.812 Encounter for preprocedural laboratory examination (principal); Z22.322 Carrier or suspected carrier of Methicillin resistant Staphylococcus aureus; M16.11 Unilateral primary osteoarthritis, right hip; I45.10 Unspecified right bundle-branch block; R94.31 Abnormal electrocardiogram [ECG] [EKG]
CPT/HCPCS: 36415; 80048; 85025; 85610; 87070; 93005

== ENCOUNTER 2022-05-25 05:35 | Day surgery (SDC) | payer MEDICARE, OTHER ==
[2022-05-20 13:50] VITALS: BMI 21.7
[~2022-05-25 05:35] MED LIST changes: +ACETAMINOPHEN TAB 500 MG TAB PO PRN; -LACTATED RINGERS 1,000 ML IV SCH; -LIDOCAINE 1% (10MG/ML) FOR IV START INTRADERMA PRN; +MELOXICAM 7.5 MG TAB PO PRN; +TRANEXAMIC ACID IN NACL,ISO-OS 1,000 MG in SALINE 1 100ML.BAG IVPB PRN
[2022-05-25] MEDS ORDERED: HYDROmorphone 0.5 MG/0.5 ML SYRINGE IVP PRN ×3 (05:47→09:04)
[2022-05-25] MEDS ORDERED: LIDOCAINE 1% (10MG/ML) FOR IV START INTRADERMA PRN (05:47)
[2022-05-25] MEDS ORDERED: DEXAMETHASONE SOD PHOSPHATE 4 MG/ML 1 ML VIAL IV ONE (05:47)
[2022-05-25] MEDS ORDERED: ONDANSETRON 4 MG/2 ML VIAL IVP ONE (05:47)
[2022-05-25] MEDS: LACTATED RINGERS 1,000 ML IV SCH ×3 (06:09→19:46)
[2022-05-25] MEDS ORDERED: MIDAZOLAM 2 MG/2 ML VIAL IVP ONE (06:49)
--- NOTE | 2022-05-25 07:24 | HP ---
HISTORY AND PHYSICAL DATE OF SURGERY: 05/25/2022. HISTORY OF PRESENT ILLNESS: Esther Arora is a 57-year-old patient seen with symptomatic right hip osteoarthritis. We discussed options for treatment. She elected to proceed with direct anterior right total hip arthroplasty. Consent regarding the procedure was obtained. PAST MEDICAL HISTORY: Hypertension and gastroesophageal reflux disease. PAST SURGICAL HISTORY: Noncontributory. DAILY MEDICATIONS: 1. Amlodipine. 2. Hydrochlorothiazide. 3. Omeprazole. ALLERGIES: Bacitracin. SOCIAL HISTORY: She denies tobacco use. PHYSICAL EVALUATION OF THE RIGHT HIP: She has diffuse tenderness about the hip girdle. Very limited range of motion with severe pain. Positive hip impingement sign. Straight-leg raise is negative. Distal neurovascular exam is intact. IMAGING STUDIES: Radiographs of the right hip reveal severe osteoarthritic changes. IMPRESSION: 1. Right hip osteoarthritis. 2. Hypertension. 3. Gastroesophageal reflux disease. PLAN: Direct anterior right total hip arthroplasty. MMODL / IJN: [id number] /
[2022-05-25] MEDS ORDERED: PROPOFOL 10 MG/ML 20 ML VIAL IV ONE (07:26)
[2022-05-25] MEDS ORDERED: NEOSTIGMINE 1 MG/ML 10 ML VIAL ONE (07:26)
[2022-05-25] MEDS ORDERED: HYDROmorphone (PF) 1 MG/ML ONE (07:26)
[2022-05-25] MEDS ORDERED: TRANEXAMIC ACID IN NACL,ISO-OS 1,000 MG/100 ML BAG ONE (07:26)
[2022-05-25] MEDS ORDERED: ROCURONIUM 10 MG/ML (5 ML VIAL) IV ONE (07:26)
[2022-05-25] MEDS ORDERED: GLYCOPYRROLATE 0.2 MG/ML 2 ML VIAL ONE (07:26)
[2022-05-25] MEDS ORDERED: MIDAZOLAM 2 MG/2 ML VIAL ONE (07:26)
[2022-05-25] MEDS ORDERED: DEXAMETHASONE SOD PHOSPHATE 4 MG/ML 1 ML VIAL ONE (07:26)
[2022-05-25] MEDS ORDERED: SUCCINYLCHOLINE CHLORIDE 200 MG/10 ML VIAL IV ONE (07:26)
[2022-05-25] MEDS ORDERED: fentaNYL (PF) 50 MCG/ML 2 ML AMP ONE (07:26)
[2022-05-25] MEDS ORDERED: ROPIVACAINE 5 MG/ML 30 ML VIAL ONE (07:26)
[2022-05-25] MEDS ORDERED: LIDOCAINE 2% INJ 20 MG/ML (2 ML VIAL) ONE (07:26)
[2022-05-25] MEDS ORDERED: ceFAZolin 1,000 MG in SODIUM CHLORIDE 0.9% 1,000 ML IRRIGATION ONE (07:31)
[2022-05-25] MEDS ORDERED: HYDROcodone/APAP 5-325MG 1 EACH TAB PO PRN (09:04)
[2022-05-25] MEDS ORDERED: NALOXONE 0.4 MG/ML 1 ML VIAL IV PRN (09:04)
[2022-05-25] MEDS ORDERED: ONDANSETRON 4 MG/2 ML VIAL IVP PRN (09:04)
[2022-05-25] MEDS ORDERED: HYDROcodone/APAP 7.5-325MG 1 EACH TAB PO PRN (09:04)
--- NOTE | 2022-05-25 09:04 | P.OP ---
Date of Procedure: 05/25/22 Preoperative Diagnosis: Right hip osteoarthritis Postoperative Diagnosis: Right hip osteoarthritis Procedure(s) Performed: Direct anterior right total hip arthroplasty Implants: 1. Depuy [place] 135 standard collar size 11 press-fit femoral stem 2. Depuy [place] 52 mm press-fit acetabular shell 3. Depuy [place] neutral polyethylene acetabular liner 36 mm ID 52 mm OD 4. Biolox Delta ceramic femoral head +1.5 36 mm Anesthesia: GETA, regional (Erector spinae block) Surgeon: Deandre Brumfield [place] Scaler #1: Geovanni Valderrama Estimated Blood Loss (ml): 50 Pathology: other (Femoral head) Condition: stable Disposition: PACU Indications for Procedure: 57-year-old patient seen with symptomatic right hip osteoarthritis. After having treatment options discussed, she elected to proceed with direct anterior right total hip arthroplasty. Operative Findings: See description of procedure Description of Procedure: The patient was taken to the operative suite. Patient underwent a general anesthetic by the department of anesthesia. Patient was then transferred to the [place] table. Patient was given preoperative IV antibiotics and TXA. Both lower extremities were placed in standard leg spars. The hip was then prepped and draped in the normal sterile orthopedic fashion. A standard anterior incision was made beginning 3 cm lateral and 1 cm distal to the ASIS extending 10 cm. Dissection was then carried down through the subcutaneous soft tissues down to the fascia overlying the tensor fascia veronica. An incision was now made through the fascia. Careful dissection was taken down exposing the tensor fascia veronica muscle. A Cobra retractor was now placed along the medial femoral neck and a second one along the lateral femoral neck. The venous circumflex vessels were now identified, cauterized and clipped. We identified the anterior hip capsule. An incision was made through the hip capsule along the lateral border. I performed a partial anterior capsulectomy. Retractors were now placed around the femoral neck itself. A femoral neck cut was now made with a sagittal saw. It was completed with an osteotome at the lateral neck area. The femoral head was now removed without difficulty. The extremity was now rotated to 60 of external rotation. It was locked in position. Residual labrum was now debrided out. Serial reaming was performed of the acetabulum while Abhay ROSARIO assisted holding an anterior retractor for exposure. Once we reached the appropriate size and a trial was position and fit nicely. The appropriate size was now chosen opened and made available. It was introduced into the acetabulum without difficulty. The C-arm/fluoroscopy was now brought into the operative field. We made sure we had a true AP pelvic view. We now under direct C- arm/fluoroscopy introduced into the acetabular component with appropriate version and inclination. I held the cup in appropriate position well Abhay ROSARIO used a mallet to seat the acetabular component. I noted the component now to be well seated and stable. Acetabular cup introduce her was removed. The C-arm was pulled back. An appropriate liner was introduced and clicked into position. It was felt to be stable. At this point retractors were removed. The extremity was now placed into 140 external rotation with no traction. The leg was now dropped to the ground and adducted. Appropriate retractors were now positioned along the proximal femur. We also placed our femoral look into position. Additional capsular releasing was performed to gain access to the proximal femur. We now used a box osteotome. A canal finder was now utilized. Serial broaching was now performed with the assistance of Abhay ROSARIO tapping the broaches down with a mallet while held the broach in appropriate rotation and position. This was done until we reached the appropriate size with good overall rotational stability. Appropriate calcar planing was performed. A trial head/neck was placed into position. The hip was now reduced. The C- arm/fluoroscopy was brought back into the operative field. I obtained an AP pelvis was demonstrated adequate leg length alignment. The trial components appeared adequately sized inadequately position. The C-arm/fluoroscopy was pulled back. Retractors were repositioned and the hip was dislocated. The leg was again taken down to the ground and adducted. Appropriate retractors were repositioned as well as the femoral hook. All trial components were removed. The femoral implant was opened along with the femoral head. The femoral implant was introduced on the appropriate handle into our pre-broached area. I held the component position well Abhay ROSARIO used a mallet to seat the femoral component. The femoral component was now noted to be well seated and stable.. The femoral head was introduced with good positioning and fixation noted. Retractors were now removed. The hip was now reduced. There appeared be good positioning of the hip confirmed on intraoperative fluoroscopy. Spot films were obtained to document this. A second gram of TXA was given. Bipolar cautery had been utilized intermittently through the procedure for hemostasis. The wound was irrigated copiously with pulse lavage mechanical irrigation. The fascia was repaired with Vicryl suture. The subcutaneous soft tissues were repaired in l [place] with Vicryl suture. The skin was approximated with pernio/Dermabond. Sterile dressings were applied. Patient was then awakened, transferred to a bed and taken to recovery in stable condition. Abhay ROSARIO assisted with the complex procedure.
[2022-05-25] MEDS ORDERED: HYDROmorphone 0.5 MG/0.5 ML SYRINGE IVP ONE ×3 (09:20→09:59)
--- NOTE | 2022-05-25 09:33 | P.ANPRN ---
Procedure Note - Anesthesia - Nerve Block Performed Right [place] Single Time Out Performed: Yes Date of Procedure: 05/25/22 Procedure Start Time: 06:48 Procedure Stop Time: 06:52 Location of Patient: PreOp Indication: Acute Post-Operative Pain, Requested by Surgeon Sedation Type: Sedate with meaningful contact maintained Preparation: Sterile Prep Position: Supine Catheter: None Needle Types: Facet Needle Gauge: 20 Ultrasound used to visualize needle placement: Yes Ultrasound used to observe medication spread: Yes Injectate: 0.5% Ropivacaine (see comment for volume) (30 ml + decadron 4 mg) Blood Aspirated: No Pain Paresthesia on Injection Noted: No Resistance on Injection: Normal Image Stored and Saved: Yes Events: Uneventful and Well Tolerated
--- NOTE | 2022-05-25 10:07 | XR ---
Fluoroscopy INDICATION: Pain FINDINGS: Fluoroscopy time: 9 seconds. DAP: 0.5240 mGycm^2 Images obtained: 4. IMPRESSIONS: 1. Documentation of fluoroscopy.
--- NOTE | 2022-05-25 10:08 | FL ---
Fluoroscopy INDICATION: Pain FINDINGS: Fluoroscopy time: Not recorded seconds. DAP: Not Recorded mGycm^2 Images obtained: 0. IMPRESSIONS: 1. Documentation of fluoroscopy.
[2022-05-25] MEDS ORDERED: LACTATED RINGERS 1,000 ML IV ONE (10:13)
[2022-05-25] MEDS: diphenhydrAMINE 50 MG/ML 1 ML VIAL IVP PRN ×2 (10:58→21:47)
[2022-05-25] MEDS: HYDROmorphone 1 MG/ML 1 ML SYRINGE IVP PRN ×4 (12:49→23:31)
[2022-05-25] MEDS ORDERED: traMADol 50 MG TAB PO PRN (15:19)
[2022-05-25] MEDS: HYDROcodone/APAP 7.5-325MG 1 EACH TAB PO PRN ×2 (15:22→21:47)
[2022-05-25] MEDS ORDERED: SENNOSIDES-DOCUSATE SODIUM 1 EACH TAB PO SCH (21:00)
[2022-05-25] MEDS ORDERED: PANTOPRAZOLE 40 MG TABLET PO PRN (23:34)
[2022-05-26] MEDS ORDERED: tiZANidine 4 MG TAB PO PRN
[2022-05-26] MEDS: LACTATED RINGERS 1,000 ML IV SCH ×2 (00:17→10:43)
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
[2022-05-26] MEDS: HYDROmorphone 1 MG/ML 1 ML SYRINGE IVP PRN ×3 (03:41→12:08)
[2022-05-26] MEDS ORDERED: amLODIPine 5 MG TAB PO SCH (09:00)
[2022-05-26] MEDS ORDERED: FAMOTIDINE 20 MG TAB PO SCH (09:00)
[2022-05-26] MEDS ORDERED: ENOXAPARIN 40 MG/0.4 ML SYRINGE SQ SCH (09:00)
[2022-05-26 09:21] VITALS: BP 135/70; PULSE 69; TEMP 98.6
[2022-05-26 11:17] LABS: HCT 27.8 % (37.2-46.3); MCH 31.8 pg (27.0-32.0); MCHC 32.4 g/dL (32.0-37.0); MCV 98.2 fL (80.0-97.0); Mean Platelet Volume 10.3 fL (9.5-12.2); NRBC Per 100 WBC 0 /100 WBCS (0.0-0.0); Platelet Count 307 X 10*3/uL (140-440); RBC 2.83 X 10*6/uL (4.10-5.20); RDW 14.4 % (11.5-14.5); WBC 12.09 X 10*3/uL (4.50-10.00)
[2022-05-26 11:22] LABS: African American GFR (CKD) 118.1 (60.0-200.0); Anion Gap 10.3 mmol/L (10.00-18.00); BUN/Creat Ratio 9.33 Ratio (12.00-20.00); Blood Urea Nitrogen 5.6 mg/dL (9.0-27.0); Carbon Dioxide 25.7 mmol/L (20.0-27.5); Non-African American GFR(CKD) 101.9 (60.0-200.0); Potassium 4.3 mmol/L (3.5-5.5)
[2022-05-26 12:23] VITALS: RESP 16
--- NOTE | 2022-05-26 12:32 | P.PN ---
Subjective Progress Note Date: 05/26/22 Principal diagnosis: status post direct anterior right total hip arthroplasty Patient was evaluated at bedside, she is resting comfortably in her hospital bed. She did have quite a bit of pain last night but has seemed to ease up today. She did ambulate with therapy. She's been urinating with no difficulties. She denies any headaches, lightheadedness, chest pain or shortne ss of breath. Objective - Vital Signs Vital signs: Vital Signs Temp 98.6 F 05/26/22 07:46 Pulse 69 05/26/22 07:46 Resp 16 05/26/22 12:13 BP 135/70 05/26/22 07:46 Pulse Ox 100 05/26/22 07:46 FiO2 Intake & Output 05/25/22 05/26/22 05/26/22 18:59 06:59 18:59 Intake Total 1051 118 Output Total 150 Balance 901 118 Weight 67.6 kg Intake: IV 1051 Oral 118 Output: Urine 100 Estimated Blood Loss 50 Other: Voiding Method Toilet # Voids 2 3 - Exam Right lower extremity: Incision is clean, dry, and intact. The foam dressing is in good position and condition. There is minimal soft tissue swelling and ecchymosis surrounding the medial and lateral aspects of the incision. Calf is soft, no tenderness with palpation. Plantar flexion, dorsiflexion, EHL, FHL are intact. Sensory exam to light touch throughout the extremity is intact, dorsal pedis pulses 2+. - Labs CBC & Chem 7: 05/26/22 05:54 05/26/22 05:54 Labs: Abnormal Lab Results - Last 24 Hours (Table) 05/26/22 05/26/22 Range/Units 05:54 05:54 WBC 12.09 H (4.50-10.00) X 10*3/uL RBC 2.83 L (4.10-5.20) X 10*6/uL Hgb 9.0 L (12.0-15.0) g/dL Hct 27.8 L (37.2-46.3) % MCV 98.2 H (80.0-97.0) fL Sodium 134 L (135-145) mmol/L BUN 5.6 L (9.0-27.0) mg/dL BUN/Creatinine Ratio 9.33 L (12.00-20.00) Ratio Assessment and Plan Assessment: Postoperative day #1 status post direct anterior right total hip arthroplasty Plan: Pain control, plan for discharge home on Tanana 7.5 mg/325 mg DVT prophylaxis, aspirin 81 mg twice a day for 30 days Wound care instructions discussed, this including both icing and elevating and showering Medical recommendations Home PT and nursing after discharge Discharge planning: Plan for discharge home today Time with Patient: Less than 30
--- NOTE | 2022-05-26 12:36 | P.DS ---
Providers Date of admission: 05/25/2022 Expected date of discharge: 05/26/22 Attending physician: Deandre Brumfield Consults: 05/25/22 09:04 Consult Physician Routine Consulting Provider: Dawson Diloln Consult Reason/Comments: Medical management Do you want consulting provider notified?: Yes Primary care physician: [facility] Course: Date of admission: 05/25/2022 Date of discharge: 05/26/2022 Admission diagnosis: Status post direct anterior right total hip arthroplasty Discharge diagnosis: Same Attending physician: Dr. Brumfield Surgical procedures: Direct anterior right total hip arthroplasty Brief history: Patient is a 57-year-old female with a history of progressive primary right hip osteoarthritis. At this point patient has failed conservative treatment measures and has opted to proceed with a elective right total hip arthroplasty direct anterior approach. Hospital course: Details of patient's surgery can be found in operative report. Patient tolerated the procedure well and was subsequently transported to orthopedic floor. Patient's orthopeidc and medical care was provided daily. Patient had daily laboratory tests performed for evaluation of overall blood counts. Patient had daily physical therapy to include strengthening range of motion as well as education with walker ambulation. Patient was treated with Lovenox for their postoperative DVT prophylaxis during their inpatient stay. Patient was noted to have a relatively uneventful postoperative course. Patient reported satisfactory pain control with oral pain medications by postoperative day 1. Patient showed satisfactory progress with physical therapy. Patient moved steadily through the program and had no difficulty meeting the goals by postoperative day 1. Given patient's otherwise satisfactory course and having met physical therapy goals, plan is to discharge patient home on postoperative day 1. Discharge condition/disposition: Patient will be discharged home in stable condition. Discharge medications: Instructions are given on resumption of patient's normal daily medications per primary care recommendation, in addition patient will be prescribed Oaks 7.5 mg/325 mg, senna S, aspirin 81 mg. Discharge instructions: 1. Wound care and infection precautions, keep incision dry and covered while showering, no lotions, creams, moisturizers. No soaking, tubs, pools, hottubs. Do not scrub over the incision. 2. Weight-bear as tolerated with walker / cane until follow-up. 3. Ice and elevate when necessary. Do not exceed 20 minutes per hour with ice pack. 4. Utilize compression sleeve until seen at first follow up appointment. 5. Visiting nursing care. 6. Home physical therapy. 7. Pain meds and anticoagulants per prescription. 8. Pain medication has potential to cause constipation. Increase oral fluid and fiber intake. Contact primary care provider if you have not had a bowel movement within 48 hours after discharge 9. No anti-inflammatory medication until discussed at first post operative visit, this including Motrin, Aleve, Mobic, Diclofenac. 10. Follow up in office at 2 weeks postop with Abhay Valderrama PA-C/Keith Solomon 11. Follow up with your primary care doctor 7-10 days after discharge. 12. Contact [facility] with any questions, . Procedures: Direct anterior right total hip arthroplasty Patient Condition at Discharge: Good Plan - Discharge Summary Discharge Rx Participant: Yes New Discharge Prescriptions: New Aspirin [Adult Low Dose Aspirin EC] 81 mg PO BID #60 tab HYDROcodone/APAP 7.5-325MG [Oaks 7.5] 1 each PO Q4HR PRN #42 tab PRN Reason: Pain Sennosides/Docusate Sodium [Senna-S 8.6-50 mg Tablet] 2 each PO DAILY PRN #30 tablet PRN Reason: Constipation No Action hydroCHLOROthiazide [Hydrodiuril] 25 mg PO DAILY amLODIPine [Norvasc] 5 mg PO QAM tiZANidine [Zanaflex] 4 mg PO Q8HR PRN PRN Reason: Muscle Spasm Acetaminophen [Tylenol Extra Strength] 1,000 mg PO Q8HR PRN PRN Reason: Pain Omeprazole [PriLOSEC] 20 mg PO BID PRN PRN Reason: Indigestion Ibuprofen [Motrin] 600 mg PO Q6HR PRN PRN Reason: Pain Discharge Medication List amLODIPine [Norvasc] 5 mg PO QAM 01/22/20 [History] hydroCHLOROthiazide [Hydrodiuril] 25 mg PO DAILY 01/22/20 [History] Acetaminophen [Tylenol Extra Strength] 1,000 mg PO Q8HR PRN 10/17/21 [History] tiZANidine [Zanaflex] 4 mg PO Q8HR PRN 10/17/21 [History] Ibuprofen [Motrin] 600 mg PO Q6HR PRN 12/24/21 [History] Omeprazole [PriLOSEC] 20 mg PO BID PRN 12/24/21 [History] Aspirin [Adult Low Dose Aspirin EC] 81 mg PO BID #60 tab 05/26/22 [Rx] HYDROcodone/APAP 7.5-325MG [Oaks 7.5] 1 each PO Q4HR PRN #42 tab 05/26/22 [Rx] Sennosides/Docusate Sodium [Senna-S 8.6-50 mg Tablet] 2 each PO DAILY PRN #30 tablet 05/26/22 [Rx] Follow up Appointment(s)/Referral(s): [facility], [NON-STAFF] - 1-2 Days ([facility] will call you to schedule your in home nursing and physical therapy visits. ) Geovanni Valderrama, JOSHUA [PHYSICIAN DIVISION ORDER TECHNICIAN] - 2 Weeks Activity/Diet/Wound Care/Special Instructions: Orthopedic Discharge Instructions: 1. Wound care and infection precautions, keep incision dry and covered while showering, no lotions, creams, moisturizers. No soaking, pools, hot tubs. Do not scrub over incision. 2. Weight-bear as tolerated with walker / cane until follow-up. 3. Ice and elevate when necessary. Do not exceed 20 minutes per hour with ice pack. 4. Utilize compression sleeve until seen at first follow up appointment. 5. Pain meds and anticoagulants per prescription. 6. Pain medication has potential to cause constipation. Increase oral fluid and fiber intake. Contact primary care provider if you have not had a bowel movement within 48 hours after discharge. 7. No anti-inflammatory medication until discussed at first post operative visit, this including Motrin, Aleve, Mobic, Diclofenac. 8. Follow up in office at 2 weeks postop with Abhay Valderrama PA-C/Keith Blake PA-C 9. Follow up with your primary care doctor 7-10 days after discharge. 10. Contact [facility] with any questions, . Wound care instructions: 1. Okay to remove foam dressing is a 06/01/2022 2. Okay to shower directly over incision after removal of bandage Discharge Disposition: HOME WITH HOME HEALTH SERVICES
[2022-05-26 12:46] LABS: Basophils # (A) 0.05 X 10*3/uL (0.00-0.10); Basophils % (A) 0.4 %; Eosinophils # (A) 0.01 X 10*3/uL (0.04-0.35); Eosinophils % (A) 0.1 %; Immature Grans, Automated 0.4 %; Lymphocytes # (A) 2.59 X 10*3/uL (0.90-5.00); Lymphocytes % (A) 21.4 %; Monocytes # (A) 1.56 X 10*3/uL (0.20-1.00); Monocytes % (A) 12.9 %; Neutrophils # (A) 7.83 X 10*3/uL (1.80-7.70); Neutrophils % (A) 64.8 %; RBC Morphology NORMAL
--- NOTE | 2022-05-27 19:33 | P.PN ---
Subjective Progress Note Date: 05/26/22 - Reason for Consult Consult date: 05/25/22 Medical management - Chief Complaint Status post right total hip arthroplasty - History of Present Illness Patient is a 57-year-old female with a known history of hypertension, hyperlipidemia, GERD, osteoarthritis and chronic back pain, migraine headaches and currently everyday smoker was admitted to the hospital for right total hip arthroplasty. Patient tolerated the procedure very well. Postoperatively blood pressure is elevated with SBP 169 mmHg. Patient has been afebrile. Patient states that she had multiple back surgeries x5 and her physician was planning to implant a spinal stimulator. She does have a prior history of right total knee arthroplasty and later revision.. Currently complaining of right hip pain and back pain. No complaints of chest pain or shortness of breath. Patient is anxious. No headache or dizziness or lightheadedness. Patient has been afebrile. Laboratory data is not available at this time. 05/26/2022 Patient is seen in follow-up this morning status post right total hip arthroplasty with orthopedics. Patient reports she possibly is going home today although overnight she was having some difficulty with nursing staff and pain management. Patient also reported feeling some increased anxiety as she was not being helped to the bathroom and had difficulties with nursing staff. Patient is afebrile denies chest pain or shortness of breath. No reports of nausea or vomiting and patient is tolerating diet. Patient reports she was able to work with physical therapy and did well. Review of systems: Constitutional: reports of fatigue as she reports she did not receive much sleep last night, no fever, or chills Cardiovascular: No reports of chest pain or palpitations Respiratory: No reports of shortness of breath or cough GI: No reports of nausea, vomiting, or diarrhea : No reports of dysuria or retention Neurovascular: reports of generalized weakness with some right hip pain All medications have been reviewed Physical exam: Patient is lying in the bed comfortably, no acute distress, awake alert and oriented.. HEENT: Normocephalic. Neck is supple. Pupils reactive. Nostrils clear. Oral cavity is moist. Neck reveals no JVD, carotid bruits, or thyromegaly. CHEST EXAMINATION: Trachea is central. Symmetrical expansion. Lung ortega clear to auscultation and percussion. CARDIAC: Normal S1, S2 with no gallops. No murmurs ABDOMEN: Soft. Bowel sounds present. Nontender. No organomegaly. No abdominal bruits. Extremities: reveal no edema. No clubbing or cyanosis Neurologically awake, alert, oriented x3 with well-coordinated movements. No focal deficits noted Skin: No rash or skin lesions. Psychiatric: Cooperative. Non-suicidal, anxious. Musculoskeletal: No joint swelling or deformity. Normal range of motion. Right Hip surgical site intact. Assessment: Status post right total hip arthroplasty. Postoperative day 1 Severe osteoarthritis History of chronic back pain and prior laminectomy/discectomy and total of 5 back surgeries. Uncontrolled hypertension likely due to pain, improved hyperLipidemia GERD Currently everyday smoker DVT prophylaxis and GI prophylaxis Plan: Patient will be continued on current pain management and DVT prophylaxis per orthopedics Home medications have been reviewed and resumed and would recommend resuming blood pressure medications Patient with incentive spirometer at the bedside encourage the patient continue using at least 10 times every hour while awake Patient was able to work with physical therapy reporting she was doing well and plans for going home this afternoon patient reported some difficulties with nursing staff and aid staff and reports has been addressed with patient advocate Patient is medically stable for discharge and recommend follow-up with primary care provider along with orthopedics at follow-up appointment Smoking cessation was discussed and encouraged We will continue to follow along with orthopedics during hospitalization. Thank you kindly for this consultation. The impression and plan of care has been dictated by Kassy Michel, Nurse Practitioner as directed. Dr. Santana MD I have performed a history and examination and MDM of this patient, discussed the same with the dictator, and agree with the dictator's assessment and plan as written ,documented as a scribe. Based on total visit time, I have performed more than 50% of the visit. Objective - Vital Signs Vital signs: Vital Signs Temp 98.6 F 05/26/22 07:46 Pulse 69 05/26/22 07:46 Resp 19 05/26/22 07:46 BP 135/70 05/26/22 07:46 Pulse Ox 100 05/26/22 07:46 FiO2 Intake & Output 05/25/22 05/26/22 05/26/22 18:59 06:59 18:59 Intake Total 1051 118 Output Total 150 Balance 901 118 Weight 67.6 kg Intake: IV 1051 Oral 118 Output: Urine 100 Estimated Blood Loss 50 Other: # Voids 2 3 - Labs CBC & Chem 7: 05/26/22 05:54 05/26/22 05:54
== END 2022-05-26 14:01 | disposition home health service (06) ==
LOC: OR 05:35 → 4SSUR 09:36 → OR 05-26 14:01
PROVIDERS: ATTEND Orthopaedic Surgery
DX: M16.11 Unilateral primary osteoarthritis, right hip (principal); G89.18 Other acute postprocedural pain; K21.9 Gastro-esophageal reflux disease without esophagitis; E78.5 Hyperlipidemia, unspecified; I10 Essential (primary) hypertension; F17.200 Nicotine dependence, unspecified, uncomplicated; Z90.710 Acquired absence of both cervix and uterus; Z98.51 Tubal ligation status; Z98.890 Other specified postprocedural states; Z80.0 Family history of malignant neoplasm of digestive organs; Z82.49 Family history of ischemic heart disease and other diseases of the circulatory system; Z79.899 Other long term (current) drug therapy; Z88.2 Allergy status to sulfonamides; Z88.1 Allergy status to other antibiotic agents; Z88.8 Allergy status to other drugs, medicaments and biological substances; Z91.048 Other nonmedicinal substance allergy status
CPT/HCPCS: 97116; 97161; 97166; 64447; 76942; 86900; 86901; 80048; 85025; 86850; 73501; 27130; C1776; J2250; J1200; J1100; J0690 ×2; J2405; J1650; J1170 ×3

== ENCOUNTER → 2022-07-29 | Outpatient (CLI) | payer MEDICARE, OTHER ==
[2022-07-29 14:49] VITALS: BP 129/65; PULSE 78; RESP 18; TEMP 98.3
--- NOTE | 2022-07-29 15:52 | P.PAINPG ---
PQRS Measure Charge Sheet Comment: A 57 yr old female with a history of severe and chronic neck pain x yrs secondary to cervical DDD and spondylosis with facet arthropathy without myelopathy presents today for neck pain. Pain level is provoked at 6 /10 in intensity, constant, localized in the base of the cervical spine, stabbing in character w shooting towards the BL shoulders and LUE. Pain is provoked by laying on her side. Pain is alleviated with injections in the past, PT x 6 wks in 2020, massage therapy w last visit 3 wks ago which was ineffective, heat, ice, medications, topical, laying supine, repositioning and rest. Interventional pain procedures completed include BL RFA C3-4 & 3rd O.N., NOELLE C6- C7 x1, R Cervical TPIs Patient is currently on Tyl, Ibu, Voltaren gel Patient denies any side effects of the medication(s), denies excessive drowsiness or sleepiness, denies suicidal ideation and reports that the current pain medication is helping to control the pain and improve activities of daily living. Patient denies any motor or sensory deficits. Patient denies any fever or night sweats, denies any change in the bowel movements or urination. Physical Examination: -Constitutional: Cooperative. Not in acute distress . - Neurologic: Cranial nerve II to XII intact. No focal neurological deficits. - Psychatric: Alert & oriented x 3. Matching mood & appropriate affect. Judgment and insight intact. - Musculoskeletal: Cervical spine: Muscle bulk/ tone/ strength in the bilateral upper extremities normal Vertebral body tenderness to palpation over C7 Spurling test positive over L C7 Distraction test positive Facet loading test positive TTP Thoracic spine Muscle bulk / tone/ strength in the bilateral paraspinal muscles normal Vertebral body tender to palpation over Facet loading test positive TTP Lumbar spine: Motor bulk/ tone/ strength lower extremities , thigh and legs : 5/5 Deep tendon reflexes : Normal Knee Jerk. Normal Ankle Jerk . Vertebral body tenderness to palpation over Lumbar Facet Loading Test positive Straight Leg Raise: positive at 30 degrees right side/ left side Gaenslen's Test positive Sacral spine : Severe tenderness over the Sacroiliac joint: right side / left side Range of motion: Flexion of the lumbar spine <60 degrees Range of motion: Extension of the lumbar spine <20 degrees Gaenslen's Test positive R / L Dalton test: positive right side / left side Thigh Thrust Test positive R / L Sacral Thrust Test positive R/ L Assessment and plan: Chronic neck pain secondary to cervical DDD, spondylosis with facet arthropathy without myelopathy Recommendation of NOELLE C7-T1. May need a series of injections for optimal pain relief. Risks, benefits of procedure discussed and pt verbalized understanding. Admits to anticoagulant use or medical history of diabetes. Protocol for discontinuation/ continuation of medications guadalupe procedure discussed. Minimal anesthesia provided, if clinically indicated, consisting of Versed and Fentanyl. All questions answered. I have spent less than 30 minutes on patient care today. Dr Mcdonnell was available by phone for the evaluation of this patient. The time was used to review the medical records including relevant urine studies and Prescription history (MAPs), review of the available imaging, evaluation and examination of the patient, coordination of care with the medical staff and if applicable referring physicians, as well as creation of the medical record PQRS Narrative: Smoking Status Current every day smoker Hx Alcohol Use (MH) Yes Home Medications: Ambulatory Orders amLODIPine [Norvasc] 5 mg PO QAM 01/22/20 hydroCHLOROthiazide [Hydrodiuril] 25 mg PO DAILY 01/22/20 Acetaminophen [Tylenol Extra Strength] 1,000 mg PO Q8HR PRN 10/17/21 tiZANidine [Zanaflex] 4 mg PO Q8HR PRN 10/17/21 Ibuprofen [Motrin] 600 mg PO Q6HR PRN 12/24/21 Omeprazole [PriLOSEC] 20 mg PO BID PRN 12/24/21 Aspirin [Adult Low Dose Aspirin EC] 81 mg PO BID #60 tab 05/26/22 HYDROcodone/APAP 7.5-325MG [[place] 7.5] 1 each PO Q4HR PRN #42 tab 05/26/22 Sennosides/Docusate Sodium [Senna-S 8.6-50 mg Tablet] 2 each PO DAILY PRN #30 tablet 05/26/22 Controlled Substance Measures - Controlled Substance Measures Is patient prescribed a controlled substance at discharge?: No
== END ==
LOC: PNWHC3 13:58
PROVIDERS: ATTEND Specialist
DX: M50.30 Other cervical disc degeneration, unspecified cervical region (principal); M47.812 Spondylosis without myelopathy or radiculopathy, cervical region; G89.29 Other chronic pain; F17.200 Nicotine dependence, unspecified, uncomplicated; Z88.2 Allergy status to sulfonamides; Z91.048 Other nonmedicinal substance allergy status; Z88.8 Allergy status to other drugs, medicaments and biological substances
CPT/HCPCS: 99211

== ENCOUNTER 2022-08-11 08:19 | Day surgery (SDC) | payer MEDICARE, OTHER ==
[2022-08-11 08:42] VITALS: RESP 16; TEMP 98.4
[2022-08-11] MEDS ORDERED: DEXAMETHASONE SOD PHOSPHATE 10 MG/ML 1 ML VIAL ONE (09:04)
[2022-08-11] MEDS ORDERED: IOPAMIDOL M200 10 ML VIAL ONE (09:04)
--- NOTE | 2022-08-11 09:11 | P.PCN ---
Date of Procedure: 08/11/22 Procedure(s) Performed: . PROCEDURE 1. Cervical epidural steroid injection under fluoroscopic guidance, C7-T1 (fluoroscopy images available in the radiology department ) 2. Cervical epidurogram. PREOPERATIVE DIAGNOSIS: 1- Cervical Degenerative Disc Diseases 2-cervical spondylosis with cervical Facet arthropathy without myelopathy. POSTOPERATIVE DIAGNOSIS: : 1- Cervical Degenerative Disc Diseases , 2-,cervical spondylosis with cervical Facet arthropathy without myelopathy. ANESTHESIA: Local anesthesia with lidocaine 1% 3 ml only EBL 0 PROCEDURE INDICATION: The patient with neck pain and radiculitis unresponsive to conservative treatment consents for procedure. PROCEDURE DESCRIPTION / TECHNIQUE: The patient was seen and identified in the preoperative area. Risks, benefits, complications, including but not limited to infections ,bleeding , allergic reactions to the medications ,and not complete pain releife, and alternatives were discussed with the patient, the patient agreed to proceed with the procedure and signed the consent. Patient was taken to the OR and time out was completed. The patient was placed in the prone position on the procedure table. A pillow was placed under the patients chest to increase the cervical interlaminar space. The cervical area was prepped and draped in the usual sterile fashion. Vital signs were closely monitored during the procedure. Using anterior-posterior fluoroscopy, the C7-T1 interlaminar space was identified and the skin over this site was marked and then infiltrated with 1% lidocaine subcutaneously. Subsequently, a 20-gauge 3-1/2-inch Tuohy epidural needle was inserted and advanced toward the epidural space by means of the ``hanging-drop technique and guided by AP and lateral fluoroscopy. The correct needle position in the epidural space was verified with the injection of 2 mL of the water soluble contrast dye [id number] and observing an excellent epidurogram with the epidural spread of the dye, after negative aspiration for blood and CSF and in the absence of paresthesias. then, mixture containing 20 mg Dexamethasone and 2 ml of preservative-free normal saline injected and a washout of epidurogram was seen. Needle was withdrawn intact, skin was cleansed, and bandages were applied. Complications= none. Disposition= patient was placed in supine position and transferred to the recovery room area in stable condition and there was no evidence of upper or lower extremity motor or sensory deficit after the procedure patient was discharged from recovery room after discharge criteria met and home discharge instructions was given by the staff and patient will follow with the pain clinic in 2-4 weeks
--- NOTE | 2022-08-11 09:23 | FL ---
EXAMINATION TYPE: FL guided pain mgmt statistic DATE OF EXAM: 08/11/2022 CLINICAL HISTORY: Neck pain. TECHNIQUE: Fluoroscopy. COMPARISON: None. FINDINGS: Fluoroscopic guidance was provided during pain relief procedure performed by Dr. Mcdonnell . A total of 2 seconds of fluoroscopic time was utilized during the procedure and two spot images ar e acquired. Images acquired shows needle localization near cervicothoracic junction. TOTAL DAP = 0.46482. IMPRESSION: As Above.
[2022-08-11 09:29] VITALS: BP 130/60; PULSE 69
== END 2022-08-11 09:26 | disposition home or self-care (01) ==
LOC: ORPAIN 08:19
PROVIDERS: ATTEND Specialist
DX: M50.13 Cervical disc disorder with radiculopathy, cervicothoracic region (principal); M47.22 Other spondylosis with radiculopathy, cervical region
CPT/HCPCS: 62321; J1100; Q9966

== ENCOUNTER 2022-09-25 09:32 | Day surgery (SDC) | payer MEDICARE, OTHER ==
[~2022-09-25 09:32] MED LIST changes: -ACETAMINOPHEN TAB 500 MG TAB PO PRN; +LACTATED RINGERS 1,000 ML IV SCH; +LIDOCAINE 1% (10MG/ML) FOR IV START INTRADERMA PRN; -MELOXICAM 7.5 MG TAB PO PRN; -TRANEXAMIC ACID IN NACL,ISO-OS 1,000 MG in SALINE 1 100ML.BAG IVPB PRN
[2022-09-25 09:49] VITALS: TEMP 97.5
[2022-09-25 09:55] LABS: Glucose,Whole Blood 103 mg/dL (70-110)
[2022-09-25] MEDS ORDERED: MIDAZOLAM 2 MG/2 ML VIAL ONE (10:12)
[2022-09-25] MEDS ORDERED: fentaNYL (PF) 50 MCG/ML 2 ML AMP ONE (10:12)
[2022-09-25] MEDS ORDERED: ROPIVACAINE 5 MG/ML 20 ML AMPULE ONE (10:19)
[2022-09-25] MEDS ORDERED: methylPREDNISolone ACETATE 40 MG/ML 1 ML VIAL ONE (10:19)
--- NOTE | 2022-09-25 10:33 | P.PCN ---
Date of Procedure: 09/25/22 Procedure(s) Performed: PREOPERATIVE DIAGNOSIS: 1-Cervical Spondylosis with Facet Arthropathy.without myelopathy. 2-cervical degenerative disc disease POSTOPERATIVE DIAGNOSIS:1-cervical spondylosis with facet arthropathy without myelopathy. 2-cervical degenerative disc disease PROCEDURES: Diagnostic bilateral C4 , C5 , and C6 medial branch blocks, with fluoroscopic guidance (fluoroscopy images available in radiology department ) ( to target the facet joint at bilateral C4- 5 , C5- 6 )# 1St ANESTHESIA: Monitored anesthesia care as per anesthesia department . EBL: Minimal PROCEDURE INDICATION: The patient with neck pain secondary to cervical arthropathy unresponsive to more conservative treatments. PROCEDURE DESCRIPTION / TECHNIQUE: The patient was seen and identified in the preoperative area. Risks, benefits, complications, and alternatives were discussed with the patient, the patient agreed to proceed with the procedure and signed the consent. IV was started. Vital signs remained stable throughout the procedure. Patient was taken to the OR and time out was completed. The patient was placed in the prone position on the procedure table. A pillow was placed under the patients chest to increase the cervical interlaminar space. The cervical area was prepped and draped in the usual sterile fashion. Critical pause was taken. Vital signs were closely monitored during the procedure. Conscious sedation was used during the procedure to decrease patients anxiety. Using cross-table lateral fluoroscopy, the centroid of the trapezoid of right C4 , C5 and C6, was identified, marked, and localized with 1% lidocaine 1 ml at each level for skin and Sub Q infiltrations . Subsequently, a 25 G 2 inches long 3spinal needle was advanced guided by fluoroscopy to the centroid of the trapezoid of Right C4 , C5, C6 . [place] tip position was confirmed at the centroid of the trapezoids of Right C4 , C5 ,C6 with anteroposterior fluoroscopy. Subsequently, 1.5 ml of preservative-free Ropivacaine 0.5% mixed with Depo-Medrol 20 mg and half ml of the mixture was injected after negative aspiration for blood and CSF. [place] was then removed intact the same procedure was repeated at the left , C4 , C5 , and C6 levels. COMPLICATIONS: No acute complications. DISPOSITION / PLANS: The patient was placed in a supine position and transferred to the recovery area in a stable condition for observation and was discharged from the recovery room after meeting discharge criteria. Home discharge instructions given to the patient by the staff. The patient was reexamined prior to discharge. The patient will schedule a follow up in the clinic in 2-4 weeks.
[2022-09-25] MEDS ORDERED: IV FLUID CONTINUATION 700 ML IV ONE (11:00)
[2022-09-25 11:07] VITALS: BP 133/70; PULSE 57; RESP 20
--- NOTE | 2022-09-25 11:14 | FL ---
Fluoroscopy History: Joselito C/Th Facet Blk Joselito Cerv Facet 13sec fluoro time 0.53653 DAP
== END 2022-09-25 11:05 | disposition home or self-care (01) ==
LOC: ORPAIN 09:32
PROVIDERS: ATTEND Specialist
DX: M50.322 Other cervical disc degeneration at C5-C6 level (principal); M47.812 Spondylosis without myelopathy or radiculopathy, cervical region; I10 Essential (primary) hypertension; E78.5 Hyperlipidemia, unspecified; F17.200 Nicotine dependence, unspecified, uncomplicated; K21.9 Gastro-esophageal reflux disease without esophagitis; Z79.899 Other long term (current) drug therapy
CPT/HCPCS: 64490; 64491 ×2; J2250; J1030; J3010; J2795

== ENCOUNTER → 2022-10-22 | Outpatient (CLI) | payer MEDICARE, OTHER ==
[2022-10-22 12:45] VITALS: BP 156/79; PULSE 83; RESP 15; TEMP 98.2
--- NOTE | 2022-10-22 13:32 | P.PAINPG ---
PQRS Measure Charge Sheet Comment: A 57 yr old female with a history of severe and chronic neck pain x yrs secondary to cervical DDD and spondylosis with facet arthropathy without myelopathy presents today for evaluation s/p BL MBB C4-C6 #1. Pt states she experienced 90 % pain relief x 2 wks s/p procedure. Pain level is provoked at 7 /10 in intensity, constant, localized in the base of the cervical spine, stabbing in character w shooting towards the BL shoulders and LUE. Pain is provoked by laying on her side. Pain is alleviated with injections in the past, PT x 6 wks in 2020, massage therapy w last visit in Aug 2022 which was ineffective, heat, ice, medications, topical, laying supine, repositioning and rest. Oswestry axial pain score of 24. Interventional pain procedures completed include BL RFA C3-4 & 3rd O.N., NOELLE C6- C7 x1, C7-T1 x1, R Cervical TPIs, BL MBB C4-C6 x1 Patient is currently on Tyl, Ibu, Voltaren gel Patient denies any side effects of the medication(s), denies excessive drowsiness or sleepiness, denies suicidal ideation and reports that the current pain medication is helping to control the pain and improve activities of daily living. Patient denies any motor or sensory deficits. Patient denies any fever or night sweats, denies any change in the bowel movements or urination. Physical Examination: -Constitutional: Cooperative. Not in acute distress . - Neurologic: Cranial nerve II to XII intact. No focal neurological deficits. - Psychatric: Alert & oriented x 3. Matching mood & appropriate affect. J udgment and insight intact. - Musculoskeletal: Cervical spine: Muscle bulk/ tone/ strength in the bilateral upper extremities normal Vertebral body tenderness to palpation Spurling test positive Distraction test positive Facet loading test positive TTP over BL C4-C5, C5-C6 Thoracic spine Muscle bulk / tone/ strength in the bilateral paraspinal muscles normal Vertebral body tender to palpation over Facet loading test positive TTP Lumbar spine: Motor bulk/ tone/ strength lower extremities , thigh and legs : 5/5 Deep tendon reflexes : Normal Knee Jerk. Normal Ankle Jerk . Vertebral body tenderness to palpation over Lumbar Facet Loading Test positive Straight Leg Raise: positive at 30 degrees right side/ left side Gaenslen's Test positive Sacral spine : Severe tenderness over the Sacroiliac joint: right side / left side Range of motion: Flexion of the lumbar spine <60 degrees Range of motion: Extension of the lumbar spine <20 degrees Gaenslen's Test positive R / L Dalton test: positive right side / left side Thigh Thrust Test positive R / L Sacral Thrust Test positive R/ L Assessment and plan: Chronic neck pain secondary to cervical DDD, spondylosis with facet arthropathy without myelopathy Recommendation of BL MBB C4-C5, C5-C6 #2. May need a series of injections, up until RFA, for optimal pain relief. Risks, benefits of procedure discussed and pt verbalized understanding. Admits to anticoagulant use or medical history of diabetes. Protocol for discontinuation/ continuation of medications guadalupe procedure discussed. Minimal anesthesia provided, if clinically indicated, consisting of Versed and Fentanyl. All questions answered. I have spent less than 30 minutes on patient care today. Dr Mcdonnell was available by phone for the evaluation of this patient. The time was used to re view the medical records including relevant urine studies and Prescription history (MAPs), review of the available imaging, evaluation and examination of the patient, coordination of care with the medical staff and if applicable referring physicians, as well as creation of the medical record PQRS Narrative: Smoking Status Current every day smoker Hx Alcohol Use (MH) Yes Home Medications: Ambulatory Orders amLODIPine [Norvasc] 5 mg PO QAM 01/22/20 hydroCHLOROthiazide [Hydrodiuril] 25 mg PO DAILY 01/22/20 Acetaminophen [Tylenol Extra Strength] 1,000 mg PO Q8HR PRN 10/17/21 tiZANidine [Zanaflex] 4 mg PO Q8HR PRN 10/17/21 Ibuprofen [Motrin] 600 mg PO Q6HR PRN 12/24/21 Omeprazole [PriLOSEC] 20 mg PO BID PRN 12/24/21 Unk Biotin 1 tab PO DAILY 09/18/22 Unk Collagen 1 tab PO DAILY 09/18/22 Unk Vitamin C 1 tab PO DAILY 09/18/22 Controlled Substance Measures - Controlled Substance Measures Is patient prescribed a controlled substance at discharge?: No
== END ==
LOC: PNWHC3 12:25
PROVIDERS: ATTEND Specialist
DX: M50.321 Other cervical disc degeneration at C4-C5 level (principal); M50.322 Other cervical disc degeneration at C5-C6 level; M47.812 Spondylosis without myelopathy or radiculopathy, cervical region; G89.29 Other chronic pain; F17.200 Nicotine dependence, unspecified, uncomplicated; Z91.048 Other nonmedicinal substance allergy status; Z88.2 Allergy status to sulfonamides; Z88.1 Allergy status to other antibiotic agents; Z88.8 Allergy status to other drugs, medicaments and biological substances
CPT/HCPCS: 99211

== ENCOUNTER → 2022-12-10 | Outpatient (CLI) | payer MEDICARE, OTHER ==
[2022-12-10 13:15] VITALS: BP 121/68; PULSE 89; RESP 13; TEMP 98.6
--- NOTE | 2022-12-10 13:52 | P.PAINPG ---
PQRS Measure Charge Sheet Comment: A 57 yr old female with a history of severe and chronic neck pain x yrs secondary to cervical DDD and spondylosis with facet arthropathy without myelopathy presents today for evaluation s/p BL MBB C4-C6 #1. Pt states she again experienced 90 % pain relief x 2 wks s/p procedure. Pain level is provoked at 9 /10 in intensity, constant, localized in the base of the cervical spine, stabbing in character w shooting towards the BL shoulders and LUE. Pain is provoked by laying on her side. Pain is alleviated with injections in the past, PT x 6 wks in 2020, massage therapy w last visit in Aug 2022 which was ineffective, heat, ice, medications, topical, laying supine, repositioning and rest. Oswestry axial pain score of 21. Interventional pain procedures completed include BL RFA C3-4 & 3rd O.N., NOELLE C6- C7 x1, C7-T1 x1, R Cervical TPIs, BL MBB C4-C6 x1 Patient is currently on Tyl, Ibu, Voltaren gel Patient denies any side effects of the medication(s), denies excessive drowsiness or sleepiness, denies suicidal ideation and reports that the current pain medication is helping to control the pain and improve activities of daily living. Patient denies any motor or sensory deficits. Patient denies any fever or night sweats, denies any change in the bowel movements or urination. Physical Examination: -Constitutional: Cooperative. Not in acute distress . - Neurologic: Cranial nerve II to XII intact. No focal neurological deficits. - Psychatric: Alert & oriented x 3. Matching mood & appropriate affect. Judgment and insight intact. - Musculoskeletal: Cervical spine: Muscle bulk/ tone/ strength in the bilateral upper extremities normal Vertebral body tenderness to palpation Spurling test positive Distraction test positive Facet loading test positive TTP over BL C4-C5, C5-C6 Thoracic spine Muscle bulk / tone/ strength in the bilateral paraspinal muscles normal Vertebral body tender to palpation over Facet loading test positive TTP Lumbar spine: Motor bulk/ tone/ strength lower extremities , thigh and legs : 5/5 Deep tendon reflexes : Normal Knee Jerk. Normal Ankle Jerk . Vertebral body tenderness to palpation over Lumbar Facet Loading Test positive Straight Leg Raise: positive at 30 degrees right side/ left side Gaenslen's Test positive Sacral spine : Severe tenderness over the Sacroiliac joint: right side / left side Range of motion: Flexion of the lumbar spine <60 degrees Range of motion: Extension of the lumbar spine <20 degrees Gaenslen's Test positive R / L Dalton test: positive right side / left side Thigh Thrust Test positive R / L Sacral Thrust Test positive R/ L Assessment and plan: Chronic neck pain secondary to cervical DDD, spondylosis with facet arthropathy without myelopathy Recommendation of BL RFA C4-C5, C5-C6. Pt exhibited optimal pain relief w prior MBB procedures. Risks, benefits of procedure discussed and pt verbalized understanding. Admits to anticoagulant use or medical history of diabetes. Protocol for discontinuation/ continuation of medications guadalupe procedure discussed. Minimal anesthesia provided, if clinically indicated, consisting of Versed and Fentanyl. All questions answered. I have spent less than 30 minutes on patient care today. Dr Mcdonnell was available by phone for the evaluation of this patient. The time was used to review the medical records including relevant urine studies and Prescription history (MAPs), review of the available imaging, evaluation and examination of the patient, coordination of care with the medical staff and if applicable referring physicians, as well as creation of the medical record PQRS Narrative: Smoking Status Current every day smoker Hx Alcohol Use (MH) Yes Home Medications: Ambulatory Orders amLODIPine [Norvasc] 5 mg PO QAM 01/22/20 Acetaminophen [Tylenol Extra Strength] 1,000 mg PO Q8HR PRN 10/17/21 tiZANidine [Zanaflex] 4 mg PO Q8HR PRN 10/17/21 Ibuprofen [Motrin] 600 mg PO Q6HR PRN 12/24/21 Omeprazole [PriLOSEC] 20 mg PO BID PRN 12/24/21 Unk Biotin 1 tab PO DAILY 09/18/22 Unk Collagen 1 tab PO DAILY 09/18/22 Unk Vitamin C 1 tab PO DAILY 09/18/22 cloNIDine HCL [Catapres] 0.1 mg PO HS 11/04/22 Aspirin [Adult Low Dose Aspirin EC] 81 mg PO BID #60 tab 11/17/22 HYDROcodone/APAP 7.5-325MG [[place] 7.5] 1 each PO Q4HR PRN #42 tab 11/17/22 Controlled Substance Measures - Controlled Substance Measures Is patient prescribed a controlled substance at discharge?: No
== END ==
LOC: PNWHC3 12:19
PROVIDERS: ATTEND Specialist
DX: M50.321 Other cervical disc degeneration at C4-C5 level (principal); M50.322 Other cervical disc degeneration at C5-C6 level; M47.812 Spondylosis without myelopathy or radiculopathy, cervical region; G89.29 Other chronic pain; F17.200 Nicotine dependence, unspecified, uncomplicated; Z79.82 Long term (current) use of aspirin; Z88.8 Allergy status to other drugs, medicaments and biological substances; Z88.2 Allergy status to sulfonamides; Z88.1 Allergy status to other antibiotic agents; Z91.048 Other nonmedicinal substance allergy status
CPT/HCPCS: 99211

== ENCOUNTER 2023-01-01 09:33 | Day surgery (SDC) | payer MEDICARE, OTHER ==
[2022-12-29 16:10] VITALS: BMI 21.7
[2023-01-01] MEDS ORDERED: LACTATED RINGERS 1,000 ML IV SCH (09:39)
[2023-01-01 10:02] VITALS: TEMP 98.8
[2023-01-01] MEDS ORDERED: KETOROLAC 15 MG/ML 1 ML VIAL ONE ×2 (10:11→10:36)
[2023-01-01] MEDS ORDERED: MIDAZOLAM 2 MG/2 ML VIAL ONE (10:11)
[2023-01-01] MEDS ORDERED: fentaNYL (PF) 50 MCG/ML 2 ML AMP ONE (10:11)
[2023-01-01] MEDS ORDERED: methylPREDNISolone ACETATE 40 MG/ML 1 ML VIAL ONE (10:17)
[2023-01-01] MEDS ORDERED: ROPIVACAINE 5MG/ML 20ML VIAL ONE (10:17)
[2023-01-01] MEDS ORDERED: IV FLUID CONTINUATION 1,000 ML IV ONE (10:34)
--- NOTE | 2023-01-01 10:34 | P.PCN ---
Date of Procedure: 01/01/23 Procedure(s) Performed: PREOPERATIVE DIAGNOSIS: Cervical spondylosis with Facet Arthropathy without myelopathy. POSTOPERATIVE DIAGNOSIS: Cervical spondylosis with Facet Arthropathy without myelopathy. PROCEDURES: Radiofrequency thermocoagulation Right C4, C5, C6 medial branch with Fluroscopy [place](fluoroscopy was available in Radiology department ) (to denervate the facet joint at Right C4- 5 , C5- 6 ) ANESTHESIA: Monitored anesthesia care as per anesthesia department . EBL: Minimal PROCEDURE INDICATION: The patient with neck pain secondary to cervical arthropathy who had more than 50% relief of her pain with previous diagnostic cervical medial branch block. PROCEDURE DESCRIPTION / TECHNIQUE: The patient was seen and identified in the preoperative area. Risks, benefits, complications, and alternatives were discussed with the patient, the patient agreed to proceed with the procedure and signed the consent. IV was started. Vital signs remained stable throughout the procedure. Patient was taken to the OR and time out was completed. The patient was placed in the [place] position (Right side up ) on the procedure table . The cervical area was prepped and draped in the usual sterile fashion. Critical pause was taken. Vital signs were closely monitored during the procedure. Conscious sedation was used during the procedure to decrease patients anxiety. Using cross-table lateral fluoroscopy, the centroid of the trapezoid of Right C4, C5, and C6 were identified, marked, and localized with 1% lidocaine. Subsequently, a 20 [id number] radiofrequency cannula with a 10-mm active tip was advanced guided by fluoroscopy to the centroid of the trapezoid of Right C4, C5, and C6 . Needle tip position was confirmed at the centroid of the trapezoids of Right C4, C5, and C6 with anteroposterior fluoroscopy. Each site then underwent sensory testing at 50 Hz and 0 to 1 volt and motor testing at 2 Hz and 0 to 3 volt with local stimulation, but no radicular symptoms down the arm. Thereafter each sites underwent radiofrequency thermocoagulation at 80 degrees celsius for 90 seconds after injecting 0.5 ml of PF Ropivacaine 0.5 %. After thermocoagulation, 1 ml of the block solution containing Depo-Medrol 40 mg and 3 mL of preservative-free normal saline was injected at the Right C4, C5, and C6 levels after negative aspiration of CSF and blood and with no paresthesias. Cannulas were retracted while injecting lidocaine 1% until the needle is out. Skin was cleansed and bandages were applied. COMPLICATIONS: No acute complications. DISPOSITION / PLANS: The patient was placed in a supine position and transferred to the recovery area in a stable condition for observation and was discharged from the recovery room after meeting discharge criteria. Home discharge instructions given to the patient by the staff. The patient was reexamined prior to discharge. The patient will schedule a follow up in the clinic in 2-4 weeks.
--- NOTE | 2023-01-01 11:08 | FL ---
EXAMINATION TYPE: FL guided pain mgmt statistic DATE OF EXAM: 01/01/2023 HISTORY: Fluoroscopy time Total dose area product (DAP) in uGy*m?, mGy*cm? (or similar): 0.44937 IMPRESSION: 1. Fluoroscopy time.
[2023-01-01 11:22] VITALS: BP 134/70; PULSE 64; RESP 14
== END 2023-01-01 11:18 | disposition home or self-care (01) ==
LOC: ORPAIN 09:33
PROVIDERS: ATTEND Specialist
DX: M47.812 Spondylosis without myelopathy or radiculopathy, cervical region (principal); I10 Essential (primary) hypertension; E78.5 Hyperlipidemia, unspecified; M19.90 Unspecified osteoarthritis, unspecified site; G43.909 Migraine, unspecified, not intractable, without status migrainosus; Z79.811 Long term (current) use of aromatase inhibitors; Z79.899 Other long term (current) drug therapy; Z88.2 Allergy status to sulfonamides; Z88.8 Allergy status to other drugs, medicaments and biological substances; Z91.048 Other nonmedicinal substance allergy status
CPT/HCPCS: 64633; 64634; J2250; J1030; J3010; J1885; J2795

== ENCOUNTER 2023-02-08 12:25 | Emergency (ER) | payer MEDICARE, OTHER ==
[2023-02-08 12:39] VITALS: BP 114/68; PULSE 81; RESP 18; TEMP 98.4
[2023-02-08] MEDS ORDERED: KETOROLAC 15 MG/ML 1 ML VIAL IM STA (13:43)
[2023-02-08] MEDS ORDERED: HYDROcodone/APAP 5-325MG 1 EACH TAB PO STA (14:13)
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
== END 2023-02-08 15:21 | disposition home or self-care (01) ==
LOC: EC 12:25
DX: M54.2 Cervicalgia (principal); K21.9 Gastro-esophageal reflux disease without esophagitis; I10 Essential (primary) hypertension; M19.90 Unspecified osteoarthritis, unspecified site; F32.A Depression, unspecified; F12.90 Cannabis use, unspecified, uncomplicated; F17.200 Nicotine dependence, unspecified, uncomplicated; Z79.899 Other long term (current) drug therapy; Z88.2 Allergy status to sulfonamides; Z88.8 Allergy status to other drugs, medicaments and biological substances; Z91.048 Other nonmedicinal substance allergy status; Z88.5 Allergy status to narcotic agent; Z88.9 Allergy status to unspecified drugs, medicaments and biological substances
CPT/HCPCS: 99283; 96372; J1885

== ENCOUNTER 2023-02-16 07:32 | Day surgery (SDC) | payer MEDICARE, OTHER ==
[2023-02-16] MEDS ORDERED: LACTATED RINGERS 1,000 ML IV SCH (08:02)
[2023-02-16] MEDS ORDERED: LACTATED RINGERS 1,000 ML IV ONE ×2 (08:07→09:43)
[2023-02-16 08:12] VITALS: TEMP 97.1
[2023-02-16] MEDS ORDERED: ROPIVACAINE 5MG/ML 20ML VIAL ONE (09:04)
[2023-02-16] MEDS ORDERED: fentaNYL (PF) 50 MCG/ML 2 ML AMP ONE (09:04)
[2023-02-16] MEDS ORDERED: MIDAZOLAM 2 MG/2 ML VIAL ONE (09:04)
[2023-02-16 09:50] VITALS: RESP 16
[2023-02-16 10:14] VITALS: BP 149/87; PULSE 70
--- NOTE | 2023-02-16 10:37 | FL ---
EXAMINATION TYPE: FL guided pain mgmt statistic Intraoperative/procedural fluoroscopic services were provided. Total fluoroscopy time is 31.5 seconds with a total of 4 submitted images to PACS. Please s ee the operative/procedural note for further details. DAP: [id number] mGym2 Gycm2
--- NOTE | 2023-02-16 11:19 | P.PCN ---
Description of Procedure: PREOPERATIVE DIAGNOSIS: Cervical spondylosis with Facet Arthropathy without myelopathy. POSTOPERATIVE DIAGNOSIS: Cervical spondylosis with Facet Arthropathy without myelopathy. PROCEDURES: Radiofrequency thermocoagulation,LEFT C4, C5, C6 medial branch with Fluroscopy Guidence(fluoroscopy was available in Radiology department ) (to denervate the facet joint at C4- 5 , C5- 6 ) ANESTHESIA: Moderate sedation with fentanyl 100 micrograms and Versed 2 mg. In OR, continuous pulse ox, EKG, blood pressure and verbal communication was maintained. EBL: Minimal PROCEDURE INDICATION: The patient with neck pain secondary to cervical arthropathy who had adequate pain with previous diagnostic cervical medial branch block. Discussed with patient the procedure, alternative options and possible complications which may include infection, bleeding, nerve damage, increased pain all of which could be permanent. Patient understands and all questions were answered. PROCEDURE DESCRIPTION / TECHNIQUE: Patient was taken to the OR and time out was completed. The patient was placed in the prone position on the procedure table. A pillow was placed under the patients chest to increase the cervical interlaminar space. The cervical area was prepped and draped in the usual sterile fashion. After injecting 5 mL of 1% lidocaine subcutaneously a 20 [id number] radiofrequency cannula with a 10-mm active tip was advanced. needle was introduced under tunnel vision of the fluoroscope AP view at the waist of the articular pillar (lateral mass) at C4 vertebral level. In the lateral view of the fluoroscope it was confirmed that the tip of the needle stayed within the dorsal half of the articular pillar (lateral mass). So, C4-5 facet joint was targeted by blocking C4 and C5 medial branch, C5-6 facet joint was targeted by blocking C5 and C6 medial branch. In exactly the same way , after subcutaneous injection of lidocaine, RFA needles were introduced under tunnel vision of the fluoroscope AP view at the waist of the articular pillars (lateral mass) at C5 and C6 vertebral level. In the lateral view of the fluoroscope it was confirmed that the tip of the needle stayed within the dorsal half of the articular pillar (lateral mass). Each site then underwent sensory testing at 50 Hz and 0 to 1 volt and motor testing at 2 Hz and 0 to 3 volt with local stimulation, but no radicular symptoms down the arm. Thereafter each sites underwent radiofrequency thermocoagulation at 80 degrees celsius for 90 seconds after injecting 1 ml of PF Ropivacaine 0.5 %. At each site, second lesion was done after rotating RFA needle 180 with same settings. After thermocoagulation,Cannulas were retracted. Skin was cleansed and bandages were applied. DISPOSITION : Patient tolerated the procedure well. No complication. The patient was placed in a supine position and transferred to the recovery area in a stable condition for observation and was discharged from the recovery room after meeting discharge criteria. Home discharge instructions given to the patient by the staff. The patient was reexamined prior to discharge. The patient will schedule a follow up in the clinic in 2-4 weeks.
== END 2023-02-16 10:12 | disposition home or self-care (01) ==
LOC: ORPAIN 07:32
PROVIDERS: ATTEND Pain Medicine Interventional Pain Medicine
DX: M47.812 Spondylosis without myelopathy or radiculopathy, cervical region (principal)
CPT/HCPCS: 64633; 64634; 99152; J2250; J3010; J2795

== ENCOUNTER 2023-02-22 11:37 | Inpatient (IN) | payer MEDICARE, OTHER ==
[2023-02-22] MEDS: HYDROmorphone 1 MG/ML 1 ML SYRINGE IM STA (12:33)
--- NOTE | 2023-02-22 12:48 | XR ---
EXAMINATION TYPE: XR chest 2V DATE OF EXAM: 02/22/2023 COMPARISON: 07/01/2018 HISTORY: 58-year-old female right mid back and chest pain TECHNIQUE: PA and lateral views FINDINGS: New small left pleural effusion with adjacent left basilar opacity. Heart normal size. Mild hyperinfl ation. Right lung and pleural space are clear. Spinal stimulator ray centered along the mid thoracic spinal canal. IMPRESSION: 1. COPD with mild emphysema. 2. Small left pleural effusion with adjacent atelectasis and/or consolidation. Etiology unclear.
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
[2023-02-22 13:42] LABS: Basophils # (A) 0.1 k/uL (0-0.2); Basophils % (A) 0 %; Eosinophils # (A) 0.1 k/uL (0-0.7); Eosinophils % (A) 1 %; HCT 36.4 % (34.0-46.0); HGB 11.7 gm/dL (11.4-16.0); Lymphocytes # (A) 2.6 k/uL (1.0-4.8); Lymphocytes % (A) 16 %; MCH 26.6 pg (25.0-35.0); MCHC 32.1 g/dL (31.0-37.0); MCV 82.8 fL (80.0-100.0); Mean Platelet Volume 6.7; Monocytes # (A) 0.8 k/uL (0-1.0); Monocytes % (A) 5 %; Neutrophils % (A) 77 %; Platelet Count 597 k/uL (150-450); RDW 14.8 % (11.5-15.5); WBC 16.9 k/uL (3.8-10.6)
[2023-02-22 13:55] LABS: INR 0.9 (<1.2); Partial Thromboplastin Time 23.9 sec (22.0-30.0); Prothrombin Time 10.5 sec (10.0-12.5)
[2023-02-22 14:00] LABS: ALT 14 U/L (4-34); AST 23 U/L (14-36); African American GFR (CKD) >90 (>60 ml/min/1.73 sqM); Albumin 4.4 g/dL (3.5-5.0); Alkaline Phosphatase 136 U/L (38-126); Anion Gap 12 mmol/L; Blood Urea Nitrogen 9 mg/dL (7-17); Calcium 10.2 mg/dL (8.4-10.2); Carbon Dioxide 26 mmol/L (22-30); Chloride 92 mmol/L (98-107); Glucose 96 mg/dL (74-99); Non-African American GFR(CKD) >90 (>60 ml/min/1.73 sqM); Potassium 4.5 mmol/L (3.5-5.1); Sodium 130 mmol/L (137-145); Total Bilirubin 0.4 mg/dL (0.2-1.3); Total Protein 7.8 g/dL (6.3-8.2)
[2023-02-22 14:05] LABS: NT-Pro-B-Type Natriuretic Pept 225 pg/mL
[2023-02-22] MEDS ORDERED: PNEUMONIA PROTOCOL UTILIZED 1 EACH MISC PO PRN (15:42)
[2023-02-22] MEDS ORDERED: IPRATROPIUM-ALBUTEROL 3 ML NEB INHALATION PRN (15:42)
[2023-02-22] MEDS: HYDROmorphone 1 MG/ML 1 ML SYRINGE IVP STA ×2 (16:00→18:00)
[2023-02-22] MEDS ORDERED: IPRATROPIUM-ALBUTEROL 3 ML NEB INHALATION SCH (16:00)
--- NOTE | 2023-02-22 16:11 | CT ---
EXAMINATION TYPE: CT chest angio for PE CT DLP: 217.5 mGycm, Automated exposure control for dose reduction was used. DATE OF EXAM: 02/22/2023 1:58 PM COMPARISON: Same day 2V chest x-ray CLINICAL INDICATION:Female, 58 years old with history of sob, pain; SOB and chest pain TECHNIQUE/CONTRAST: CTA scan of the thorax is performed with IV Contrast, patient injected with 70ml mL of Isovue 300, UT P images are created and reviewed these are created on a separate workstation.. FINDINGS: There is adequate contrast bolus and timing. PULMONARY ARTERIES: There is no evidence for a filling defect within the pulmonary vasculature to sug gest acute pulmonary embolism. Pulmonary trunk is normal in size. Trunk measures 2.2 CM. HEART: Normal heart size.Mild coronary artery calcification. Trace pericardial fluid. AORTA: Moderate atherosclerotic calcifications of the aorta and branches no significant narrowing of the branch vessels from the arch.. Ascending aorta is 2.8 CM, descending is 2.3 CM. Aorta is consid ered normal in size. LOWER NECK: No significant findings. MEDIASTINUM: No discretely measurable mediastinal lymph nodes. There is right hilar region adenopathy , suprahilar 2 x 1.5 cm, and infrahilar 2 x 1.1 cm. No discretely measurable left hilar nodes. SOFT TISSUES/LYMPH NODES: There are scattered fibroglandular densities in both visualized breasts. Th ere is an asymmetric soft tissue density seen in the lateral right breast superiorly which axially me asures 2.3 x 1.6 cm, concerning for neoplasm. Detection is somewhat hampered because of dense contras t within the axillary and subclavian vasculature on the right, but no discretely enlarged axillary no kat are seen. LUNGS/ PLEURA: There are moderate bilateral upper lobe predominant emphysematous changes. Moderate si ze left pleural effusion with adjacent compressive atelectasis. Lung nodules could be obscured. Along the superomedial aspect of the left upper lobe abutting the pleura over a relatively long segment th ere is an irregular-appearing, ill marginated soft tissue density with portions both involving the me dial left lung and extending into the left side of the mediastinum with obliteration of the normal ti ssue planes. Precise measurements are difficult but this is at least 5.2 cm AP by 2.9 cm transverse, located above the level of the aortic arch. Tissue appears to touch the left subclavian artery withou t evidence of compression or direct invasion at this time. Proximal left vertebral artery appears nor daniel patent. There is lesser soft tissue extending in contiguity with the mass, which extends along the pleural surface both anteriorly and posteriorly, up to about 5 mm thick. This appears to extend a round the lung and go to the apex, where there is additional mild thickening. No evidence of pneumoth orax. There is subsegmental atelectasis in the lingula, difficult to exclude small nodule here. Multi ple small areas of nodular and plaque-like thickening along the oblique fissure. Right lung is relatively clear, without evidence of acute infiltrate or mass. No right pleural effusi on or pneumothorax. AIRWAY: Central airways are patent. MUSCULOSKELETAL: Mild/moderate multilevel degenerative disk disease throughout the thoracic spine. Mi ld S-shaped scoliosis. No evidence of compression fracture. There is a neurostimulator within the spi nal canal posteriorly terminating at the T6-T7 level. Small rounded lucent lesions are seen in the po sterior vertebral bodies T3 and T4 concerning for metastases. UPPER ABDOMEN: Partially seen liver shows no definite mass. Adrenals appear minimally thickened witho ut evidence of mass. Mild atherosclerotic disease of the upper abdominal aorta and visualized branche s. IMPRESSION: 1. No evidence of pulmonary embolism. 2. A 2.3 x 1.6 cm soft tissue density in the right superolateral breast, concerning for primary neop lasm or metastasis. 3. An at least 5.2 x 2.9 cm soft tissue density along the superomedial left lung, with portions invo lving both the lung and extending directly into the mediastinum as described. This is highly concerni ng for primary neoplasm or metastasis. 4. Lesser soft tissue thickening extending in contiguity with the mass, along the pleura anteriorly and posteriorly to the lung apex. Moderate size left pleural effusion, may be malignant. If and when this is sampled/drained, cytology of the fluid may be of benefit. 5. Multiple small areas of nodular and plaque-like thickening along the left oblique fissure, could represent metastatic involvement and/or extension of fluid along the fissure. 6. Right hilar region adenopathy up to 2 x 1.5 cm. No discretely measurable mediastinal or left nela r lymph nodes. 7. Right lung is relatively clear, without evidence of acute infiltrate or mass. No right pleural ef fusion or pneumothorax. 8. Small rounded lucent lesions in the posterior vertebral bodies T3 and T4, concerning for osseous metastases.
[2023-02-22] MEDS ORDERED: ACETAMINOPHEN TAB 325 MG TAB PO PRN (17:08)
[2023-02-22] MEDS ORDERED: NALOXONE 0.4 MG/ML 1 ML VIAL IV PRN (17:08)
[2023-02-22] MEDS: SODIUM CHLORIDE 0.9% 1,000 ML IV SCH (18:03)
[2023-02-22] MEDS: AZITHROMYCIN 500 MG in SODIUM CHLORIDE 0.9% 250 ML IVPB STA (19:46)
[2023-02-22] MEDS: HYDROmorphone 1 MG/ML 1 ML SYRINGE IVP PRN (20:49)
[2023-02-22] MEDS: cloNIDine HCL 0.1 MG TAB PO SCH (22:25)
[2023-02-22] MEDS: tiZANidine 4 MG TAB PO PRN (22:25)
--- NOTE | 2023-02-23 01:25 | HP ---
HISTORY AND PHYSICAL CHIEF COMPLAINT: Right back pain. HISTORY OF PRESENT ILLNESS: This is a 58-year-old woman with a past medical history of multiple medical problems, had a severe COVID last year. Currently, the patient is complaining of pain in the right shoulder area, which is aggravated even by a slight movement. The chest x-ray showed left pleural effusion. CTA is pending at this time. The patient also had a nerve stimulator. There is no history of any fever, rigors, or chills at this time. PAST MEDICAL HISTORY: Hypertension chronic, recent back surgery. Rest of the history and rest of the chart is also reviewed. HOME MEDICATIONS: Reviewed include hydrochlorothiazide. Doses and rest of medications noted. ALLERGIES: Adhesive tapes. Rest of the allergies noted. FAMILY HISTORY: History of colon cancer. SOCIAL HISTORY: History of smoking, THC. REVIEW OF SYSTEMS: Fourteen-point review is negative except as mentioned earlier. PHYSICAL EXAMINATION: VITAL SIGNS: Pulse 69, blood pressure 133/70, respirations 20. HEENT: Conjunctivae normal. NECK: No JVD. CARDIOVASCULAR: S1, S2. RESPIRATIONS: Breath sounds diminished at the bases. The movements are painful in the right scapular area. ABDOMEN: Soft. No masses. LEGS: No edema. NERVOUS SYSTEM: Nonfocal. SKIN: No ulcer, rash, bleeding. JOINTS: No active deforming arthropathy. LABORATORY DATA: Sodium 130, WBC 16.9. ASSESSMENT: 1. Right shoulder and back pain for evaluation, rule out possible pleurisy. 2. Left pleural effusion. 3. History of previous COVID. 4. Increased WBC. 5. History of hypertension. 6. History of chronic pain syndrome. 7. History of degenerative joint disease. 8. History of spinal nerve ablation. 9. History of nicotine dependence. 10.History of THC. RECOMMENDATIONS: This is a 58-year-old woman presented with multiple complex medical issues and significant pain with failure of outpatient treatment. I recommend to continue intravenous pain medications, resume the home medications. Also recommend CT scan of the chest. Pulmonary consultation, closely follow. Prognosis guarded. Further recommendations to follow. See orders for further details. Recommended close followup with primary physician after discharge. MMODL / IJN: [id number] /
[2023-02-23] MEDS: HYDROcodone/APAP 5-325MG 1 EACH TAB PO PRN (01:41)
[2023-02-23] MEDS: amLODIPine 5 MG TAB PO SCH (08:27)
[2023-02-23] MEDS: MAGNESIUM OXIDE 400 MG TAB PO SCH (08:27)
[2023-02-23] MEDS: CHOLECALCIFEROL 125 MCG (5000 IU) TABLET PO SCH (08:27)
[2023-02-23] MEDS: hydroCHLOROthiazide 25 MG TAB PO SCH (08:27)
[2023-02-23] MEDS: MULTIVITAMINS, THERA 1 EACH TAB PO SCH (08:27)
[2023-02-23] MEDS: PANTOPRAZOLE 40 MG TABLET PO PRN (08:37)
[2023-02-23] MEDS ORDERED: AZITHROMYCIN 500 MG TAB PO SCH (09:00)
[2023-02-23 13:04] LABS: African American GFR (CKD) >90 (>60 ml/min/1.73 sqM); Anion Gap 9 mmol/L; Blood Urea Nitrogen 7 mg/dL (7-17); Calcium 9.7 mg/dL (8.4-10.2); Carbon Dioxide 29 mmol/L (22-30); Chloride 91 mmol/L (98-107); Glucose 97 mg/dL (74-99); Non-African American GFR(CKD) >90 (>60 ml/min/1.73 sqM); Potassium 3.9 mmol/L (3.5-5.1); Sodium 129 mmol/L (137-145)
--- NOTE | 2023-02-23 13:05 | USB ---
Reason for Exam: Additional evaluation requested from prior study. Patient History: Menarche at age 14. First Full-Term at age 19. Hysterectomy at age 43. Postmenopausal. Core Biopsy on the Right side. Excisional Biopsy on the Right side. 05/19/2001, Benign Stereotactic Core Biopsy on the right side. Maternal grandmother had breast cancer. Risk Values: Lolis 5 year model risk: 1.4%. NCI Lifetime model risk: 8.5%. Technique: Method: Targeted. Prior Study Comparison: 03/18/2015 Bilateral Screening Mammogram, [facility]. 04/28/2016 Bilateral Screening Mammogram, [facility]. 09/08/2017 Bilateral Screening Mammogram, [facility]. Findings: The upper outer quadrant of the right breast, the axilla of the right breast and the retroareolar of the right breast were scanned. At the 10:00 position there is an ill-defined hypoechoic area 10 cm from the nipple. This area likely corresponds to the prior mammographic area. Patient is due for her mammogram. This can be performed on an outpatient basis. Overall Assessment: Probably benign, BI-RAD 3 Management: Diagnostic Mammogram of both breasts. A clinical breast exam by your physician is recommended on an annual basis and results should be correlated with mammographic findings. This exam should not preclude additional follow-up of suspicious palpable abnormalities. Results were given to the patient verbally at the time of exam. Electronically signed and approved by: Jaswinder Nance D.O. Radiologis
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
[2023-02-23] MEDS: IOPAMIDOL CONTRAST (ORAL USE) VIAL PO PRN (14:25)
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
--- NOTE | 2023-02-23 16:25 | US ---
EXAMINATION TYPE: US chest DATE OF EXAM: 02/23/2023 COMPARISON: Radiograph 02/22/2023 CLINICAL INDICATION: Female, 58 years old with history of Left pleural effusion; TECHNIQUE: Targeted ultrasound of the posterior lower left hemithorax EXAM MEASUREMENTS: Left Pleural Effusion pocket size: 2.8m Left skin surface to fluid distance: 1.4m Left side marked for possible thoracentesis outside the dept. Pulmonologists are able to review the images in the patient?s EMR. IMPRESSIONS: Small left pleural effusion with marking performed.
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
[2023-02-23] MEDS: TEMAZEPAM 7.5 MG CAP PO PRN (20:46)
[2023-02-23] MEDS: IBUPROFEN 400 MG TAB PO PRN (20:58)
[2023-02-23] MEDS: SENNOSIDES 8.6 MG TAB PO SCH (20:58)
--- NOTE | 2023-02-24 08:03 | PN ---
PROGRESS NOTE DATE OF SERVICE: 02/23/2023 SUBJECTIVE: This is a 58-year-old woman who was admitted with right shoulder and back pain, also had left pleural effusion. The patient also had a CAT scan of the chest which showed multiple abnormalities including probably right superolateral breast mass and soft tissue density in the lung, the possibility of malignancy is still there, multiple plaque-like regions and right hilar lymphadenopathy was also noted. The patient will be closely monitored. PAST MEDICAL HISTORY: Reviewed. REVIEW OF SYSTEMS: A 14-point review is negative except as mentioned earlier. CURRENT MEDICATIONS: Reviewed include HydroDIURIL, dose and rest of medications reviewed. PHYSICAL EXAMINATION: VITAL SIGNS: Pulse 70, blood pressure is 133/70, and respirations 18. HEENT: Conjunctivae normal. NECK: No jugular venous distention. CARDIOVASCULAR: S1, S2 muffled. RESPIRATIONS: Diminished at the bases. ABDOMEN: Soft. BREASTS: Right breast is dense. LABORATORY DATA: WBC 16.9. ASSESSMENT: 1. Right shoulder and back pain for evaluation, rule out possibility of pleurisy versus pneumonia. 2. Left pleural effusion. 3. Possible right breast mass, rule out malignancy. 4. History of previous COVID. 5. Increased WBC. 6. Hypertension. 7. Chronic pain syndrome with pain stimulator. 8. History of DJD. 9. History of nicotine dependence. 10.History of THC. RECOMMENDATIONS: Recommended to continue current medications, continue symptomatic treatment, otherwise recommended pain management. We will continue with empiric antibiotics, otherwise obtain Pulmonary and Hematology Oncology consultations. Prognosis guarded. Further recommendations to follow. MMODL / IJN: [id number] /
[2023-02-24] MEDS: LACTOBACILLUS ACIDOPHILUS/PECT 1 EACH CAPSULE PO SCH (08:44)
--- NOTE | 2023-02-24 09:54 | CT ---
EXAMINATION TYPE: CT abdomen pelvis w con CT DLP: 520.4 mGycm, Automated exposure control for dose reduction was used. DATE OF EXAM: 02/23/2023 4:47 PM COMPARISON: None. CLINICAL INDICATION:Female, 58 years old with history of breast and lung mass staging; new ca dx, marilu ast and lung TECHNIQUE: Axial CT of the abdomen and pelvis. Sagittal and coronal reformats were created on a [employer] workstation. Contrast used:100 mL of Isovue 300 with IV Contrast, (none if empty) Oral contrast used: with Oral Contrast (none if empty) FINDINGS: LOWER CHEST: Moderate left pleural effusion with adjacent atelectasis. Tiny nodularity of the pericar dial fat towards the cardiac apex, may represent nonenlarged nodes. No pericardial effusion. Normal h eart size. ABDOMEN LIVER: Unremarkable GALLBLADDER AND BILE DUCTS: Mildly prominent without evidence of surrounding inflammation or calcifie d stones. No significant biliary ductal dilatation. CBD 5.8 mm and tapers distally. PANCREAS: Unremarkable. SPLEEN: Unremarkable. ADRENAL GLANDS: Mildly thickened without evidence for mass.. KIDNEYS AND URETERS: Kidneys enhance symmetrically. No evidence of hydronephrosis or visible renal ca lculus. The ureters are unremarkable. PELVIS Limited assessment due to extensive artifacts from bilateral hip arthroplasties. BLADDER: Grossly unremarkable as seen REPRODUCTIVE: Obscured ABDOMEN & PELVIS STOMACH AND BOWEL: Contrast traverses the stomach and small bowel loops without evidence of obstructi on. Stomach appears mildly distended with the appearance of diffuse rugal fold thickening. There is a pparent thickening/nondistention of the gastric outlet and proximal duodenum. The more distal small b owel loops appear of normal caliber without evidence of obstruction. Distal ileum and colon are not o pacified, limiting evaluation. Right colon appears low-lying dipping into the pelvis. The appendix i s not seen. Moderate stool throughout redundant colon. Some segments of colon are nondistended/collap sed and not well assessed. This includes a couple areas of apparent luminal narrowing in the sigmoid. PERITONEUM/RETROPERITONEUM: No evidence of pneumoperitoneum or free fluid. VASCULATURE: Moderate atherosclerotic calcifications are present throughout the abdominal aorta and i ts branches. No evidence of aortic aneurysm. Mild narrowing of the proximal celiac and right renal ar teries. Moderate narrowing of the proximal left renal artery. Portal veins are enhancing. Splenic v ein is patent. LYMPH NODES: No evidence of enlarged abdominal pelvic lymph nodes. SOFT TISSUE/ABDOMINAL WALL: Neurostimulator present with main unit in the posterior soft tissues on t he right at the level of the iliac wing and the leads extending cranially before apparently entering the spine around the T9-T10 level but incompletely seen. MUSCULOSKELETAL: Generalized osteopenia. No evidence of an acute bony abnormality, or appreciable lyt ic/blastic lesion. Status post posterior fusion with right-sided transpedicular screws and posterior fixation victor manuel L5-S1, and left-sided transpedicular screws and posterior fixation victor manuel L4 L5 S1. Prosthe tic disc interspace material L4-5 and L5-S1, the former protrudes slightly anterior to the normal dis c space, and the latter terminates at the anterior margin of the normal disc space. The hardware appe ars intact, the screws have an intraosseous course however the sacral level screws extend slightly (u p to 4 mm) beyond the anterior sacral cortical margin. IMPRESSION: 1. Moderate left pleural effusion with adjacent atelectasis. 2. No definite evidence of mass or adenopathy in the abdomen or pelvis to indicate metastatic diseas e. 3. Gastric rugal fold thickening suggested. Thickened appearance of the gastric outlet/proximal duod enum, of uncertain cause. This could reflect contraction/incomplete distention and/or true pathologic thickening. Upper endoscopy may be of benefit. 4. Moderate stool throughout the colon, with some segments nondistended/collapsed and not well asses sed. Consider colonoscopy to clear the colon. 5. Status post fusion L4 L5 S1, as above. No acute osseous abnormality is seen.
[2023-02-24 10:46] LABS: Basophils # (A) 0.09 X 10*3/uL (0.00-0.10); Eosinophils # (A) 0.23 X 10*3/uL (0.04-0.35); Eosinophils % (A) 2.6 %; HCT 35.1 % (37.2-46.3); HGB 11.2 g/dL (12.0-15.0); Lymphocytes # (A) 2.04 X 10*3/uL (0.90-5.00); Lymphocytes % (A) 22.7 %; MCH 26.4 pg (27.0-32.0); MCHC 31.9 g/dL (32.0-37.0); MCV 82.6 FL (80.0-97.0); Monocytes # (A) 0.92 X 10*3/uL (0.20-1.00); Monocytes % (A) 10.3 %; NRBC Per 100 WBC 0 X 10*3/uL (0.00-0.01); Neutrophils # (A) 5.64 X 10*3/uL (1.80-7.70); Neutrophils % (A) 62.8 %; Platelet Count 576 X 10*3/uL (140-440); RBC 4.25 X 10*6/uL (4.10-5.20); RDW 15.4 % (11.5-14.5); WBC 8.97 X 10*3/uL (4.50-10.00)
[2023-02-24 11:00] LABS: ALT 10 U/L (8-44); AST 19 U/L (13-35); Albumin 3.9 g/dL (3.8-4.9); Albumin/Globulin Ratio 1.34 Ratio (1.60-3.17); Alkaline Phosphatase 112 U/L (41-126); Blood Urea Nitrogen 5.8 mg/dL (9.0-27.0); Calcium 10.1 mg/dL (8.7-10.3); Carbon Dioxide 28.2 mmol/L (21.6-31.8); Chloride 91 mmol/L (96-109); Globulin 2.9 g/dL (1.6-3.3); Glucose 86 mg/dL (70-110); Potassium 4.3 mmol/L (3.5-5.5); Sodium 130 mmol/L (135-145); Total Bilirubin 0.4 mg/dL (0.3-1.2); Total Protein 6.8 g/dL (6.2-8.2)
--- NOTE | 2023-02-24 11:40 | P.PN ---
Subjective Progress Note Date: 02/24/23 Principal diagnosis: Back pain/lung mass/right breast lump Esther is a 58-year-old white female who presented to the emergency room with back pain. In the course of her workup she was noted to have a mass in her left breast and a lump in her right breast. We were consulted to evaluate the lump in the right breast. An attempt at a thoracentesis with fluid extraction from the left lung was unable to be performed secondary to insufficient fluid. I discussed the case with Dr. Barrera and he would like to do an outpatient workup of this. Additionally the patient is unable to get a mammogram as an inpatient and we will work this up as an outpatient as well. I will also discuss the case with her primary care doctor Dr. Alvarez who is taking care of her back pain. The patient on today's examination again complains of pain in her right back. Objective - Vital Signs Vital signs: Vital Signs Temp 97.3 F L 02/24/23 07:22 Pulse 75 02/24/23 07:22 Resp 16 02/24/23 08:45 BP 138/77 02/24/23 07:22 Pulse Ox 93 L 02/24/23 07:22 FiO2 Intake & Output 02/23/23 02/24/23 02/24/23 18:59 06:59 18:59 Intake Total 580 Balance 580 Intake: Oral 580 Other: Voiding Method Toilet Toilet # Voids 2 2 - Constitutional General appearance: Present: cooperative - EENT ENT: Present: hearing grossly normal - Neck Neck: Present: normal ROM - Respiratory Details: Bilateral rhonchi - Cardiovascular Heart sounds: normal: S1, S2 - Psychiatric Psychiatric: Present: A&O x's 3, appropriate affect, intact judgment & insight - Labs CBC & Chem 7: 02/24/23 06:53 02/24/23 06:53 Labs: Abnormal Lab Results - Last 24 Hours (Table) 02/23/23 02/24/23 02/24/23 Range/Units 12:06 06:53 06:53 Hgb 11.2 L (12.0-15.0) g/dL Hct 35.1 L (37.2-46.3) % MCH 26.4 L (27.0-32.0) pg MCHC 31.9 L (32.0-37.0) g/dL RDW 15.4 H (11.5-14.5) % Plt Count 576 H (140-440) X 10*3/uL Immature Gran # 0.05 H (0.00-0.04) X 10*3/uL Sodium 129 L 130 L (137-145) mmol/L Chloride 91 L 91 L (98-107) mmol/L BUN 5.8 L (9.0-27.0) mg/dL Creatinine 0.47 L 0.5 L (0.52-1.04) mg/dL BUN/Creatinine Ratio 11.60 L (12.00-20.00) Ratio Albumin/Globulin Ratio 1.34 L (1.60-3.17) Ratio Assessment and Plan Assessment: Impression: 58-year-old white female with a history of chronic back pain who presented for right back/shoulder pain Abnormal computed tomography scan chest/breast; concern for lung and/or breast cancer Concern for metastatic bony disease Thoracentesis unsuccessful secondary to a paucity of fluid Plan: Bilateral mammogram as an outpatient Probable right breast ultrasound-guided core biopsy as an outpatient Follow-up with us after the above is done CC:
--- NOTE | 2023-02-24 12:39 | NM ---
EXAMINATION TYPE: NM bone scan whole body DATE OF EXAM: 02/24/2023 COMPARISON: NONE CLINICAL INDICATION: Female, 58 years old with history of lung and breast mass, T3 and T4 lesion, sta ging; Delayed whole-body scanning was performed following the injection of 25.5 mCi Tc 99m MDP. Images acq uired 3 hours post injection. FINDINGS: Foci of activity along the mandible and maxilla suggesting underlying periodontal disease. Degenerati ve activity at the sternoclavicular joints and first costochondral junctions. Some degenerative larios e along the posterior elements towards the right within the cervical spine and also scattered within the mid lumbar spine. There is photopenia related to bilateral total hip arthroplasties and underlyin g right total knee arthroplasty. Otherwise, no suspicious distribution of activity to suggest bony metastases at this time. IMPRESSION: 1. No convincing scintigraphic evidence for osseous metastatic disease. 2. Note that nuclear medicine bone scan has decreased sensitivity for purely lytic metastases and aubrey t the T3/T4 lesions seen on 02/22/2023 remain suspicious.
[2023-02-24] MEDS: KETOROLAC 15 MG/ML 1 ML VIAL IVP SCH (12:47)
--- NOTE | 2023-02-24 13:00 | PN ---
PROGRESS NOTE DATE OF SERVICE: 02/24/2023 SUBJECTIVE: This 58-year-old woman was admitted with severe back pain, was also being evaluated for possible right breast cancer and lung cancer. Pain management is also being consulted. Dr. Beebe recommended outpatient followup and abdominal pelvis CAT scan also had for completion sake, which showed no acute abnormality. The patient is complaining of back pain, 10/10 in intensity and the patient is crying. PAST MEDICAL HISTORY: Reviewed. REVIEW OF SYSTEMS: A 14-point review is negative except as mentioned earlier. PHYSICAL EXAMINATION: VITAL SIGNS: Pulse is 75, blood pressure 138/77, and respirations 16. HEENT: Conjunctivae normal. NECK: No jugular venous distention. CARDIOVASCULAR: S1, S2 muffled RESPIRATIONS: Diminished at the bases, a few scattered rhonchi. ABDOMEN: Soft. LEGS: No edema, no swelling. SKIN: No ulcer, rash, or bleeding. JOINTS: No active deforming arthropathy. LABORATORY DATA: Reviewed. ASSESSMENT: 1. Right shoulder and right back pain for evaluation. 2. Pleurisy versus pneumonia versus mets with failure of outpatient treatment. 3. Pain pump. 4. Left pleural effusion. 5. Possible right breast mass, rule out malignancy. 6. Rule out lung cancer. 7. History of previous COVID. 8. Increased WBC. 9. Hypertension. 10.Chronic pain syndrome with pain stimulator. 11.History of DJD. 12.Multiple complex medical issues. RECOMMENDATIONS: Recommended to continue current management, continue symptomatic treatment, pain management consultation otherwise discussed with Dr. Beebe and recommended outpatient evaluation and closely follow with Pulmonary and Hematology Oncology. Repeat labs will be ordered. The patient has some mild hyponatremia. Further recommendations to follow. See orders for details. Adjust pain medications. MMODL / IJN: [id number] /
--- NOTE | 2023-02-24 13:53 | P.PN ---
Subjective Progress Note Date: 02/24/23 At today's visit patient is tearful, reporting persisting sharp right shoulder blade pain that is worse upon inspiration. Reports Dilaudid does improve pain but relief does not last long. Patient is requesting "trigger point injection" Objective - Vital Signs Vital signs: Vital Signs Temp 97.8 F 02/24/23 12:40 Pulse 81 02/24/23 12:40 Resp 16 02/24/23 12:40 BP 137/66 02/24/23 12:40 Pulse Ox 92 L 02/24/23 12:40 FiO2 Intake & Output 02/23/23 02/24/23 02/24/23 18:59 06:59 18:59 Intake Total 580 Balance 580 Intake: Oral 580 Other: Voiding Method Toilet Toilet # Voids 2 2 - Constitutional General appearance: Present: mild distress - EENT Eyes: Present: anicteric sclerae, EOMI ENT: Present: hearing grossly normal - Respiratory Details: breathing is even and unlabored - Cardiovascular Details: skin warm and dry - Gastrointestinal General gastrointestinal: Present: soft. Absent: tenderness - Musculoskeletal Musculoskeletal Comment(s): tenderness to right side mid back - Psychiatric Psychiatric: Present: A&O x's 3 - Labs CBC & Chem 7: 02/24/23 06:53 02/24/23 06:53 Labs: Abnormal Lab Results - Last 24 Hours (Table) 02/24/23 02/24/23 Range/Units 06:53 06:53 Hgb 11.2 L (12.0-15.0) g/dL Hct 35.1 L (37.2-46.3) % MCH 26.4 L (27.0-32.0) pg MCHC 31.9 L (32.0-37.0) g/dL RDW 15.4 H (11.5-14.5) % Plt Count 576 H (140-440) X 10*3/uL Immature Gran # 0.05 H (0.00-0.04) X 10*3/uL Sodium 130 L (135-145) mmol/L Chloride 91 L (96-109) mmol/L BUN 5.8 L (9.0-27.0) mg/dL Creatinine 0.5 L (0.6-1.5) mg/dL BUN/Creatinine Ratio 11.60 L (12.00-20.00) Ratio Albumin/Globulin Ratio 1.34 L (1.60-3.17) Ratio - Imaging and Cardiology CT scan - abdomen: report reviewed CT scan - pelvis: report reviewed breast ultrasound and bone scan reviewed Assessment and Plan (1) Back pain Current Visit: Yes Status: Acute Priority: High Code(s): M54.9 - DORSALGIA, UNSPECIFIED SNOMED Code(s): 082363977 (2) Breast mass Current Visit: Yes Status: Acute Priority: High Code(s): N63.0 - UNSPECIFIED LUMP IN UNSPECIFIED BREAST SNOMED Code(s): 02830817 (3) Lung mass Current Visit: Yes Status: Acute Priority: High Code(s): R91.8 - OTHER NONSPECIFIC ABNORMAL FINDING OF LUNG FIELD SNOMED Code(s): 105283266 (4) Pleural effusion Current Visit: Yes Status: Acute Priority: High Code(s): J90 - PLEURAL EFFUSION, NOT ELSEWHERE CLASSIFIED SNOMED Code(s): 44095100 Plan: Lung mass/pleural effusions: -Presented with complaints of upper back pain. Patient reports she's been having intermittent stabbing pain in her right shoulder blade which she initially attributed to previous spinal issues. She did undergo recent cervical ablation. Reports last mammogram was a approx 4 years ago. Hx [id number] smoker. Mother had history of lung cancer. -Chest x-ray revealed COPD with mild emphysema. Small left pleural effusion with adjacent atelectasis and/or consolidation. CT chest negative for PE. A 2.3 x 1.6 cm soft tissue density in the right superolateral breast. 5.2 x 2.9 cm soft tissue density along the superomedial left lung with portions involving both the lung and extending directly into the mediastinum. Lesser soft tissue thickening extending and contiguity with the mass, along the pleural anteriorly and posteriorly to the lung apex. Moderate size left pleural effusion. Multiple small areas of nodular plaque-like thickening along the left oblique fissure. Right hilar region adenopathy up to 2 x 1.5 cm. Small rounded lucent lesions in the posterior vertebral bodies at T3 and T4. -Findings and concerns for malignancy discussed with pt. Discussed the need for lung biopsy and/or thoracentesis with cytology to determine lung primary vs breast primary vs two separate primary sites. Pt was agreeable to proceed with further testing -Pulmonolgy following. Chest ultrasound revealed small left pleural effusion. No plan for thoracentesis at this time. Will await further recommendations if they plan for bronch with biopsy -CT AP and bone scan ordered for staging. CT abdomen and pelvis revealed no definite evidence of mass or adenopathy within the abdomen or pelvis to indicate metastatic disease. Bone scan showed no convincing scintigraphic evidence for osseous metastatic disease. -US right breast revealed ill-defined hypoechoic area 10 cm from the nipple. The area likely corresponds to prior mammographic area and likely benign. Breast surgeon, Dr. Conner Ramirez following and is recommending bilateral mammography and probable right breast biopsy outpatient -Pt unable to have MRI due to spinal stimulator. Will obtain CT head to complete staging -Will adjust pain medications. Consult placed to pain management -Will continue to follow
--- NOTE | 2023-02-24 14:20 | P.PN ---
Subjective Progress Note Date: 02/24/23 This is a 58-year-old female who is been smoking for 43 years, one pack a cigarettes a day, who presents to the emergency department, on February 22, complaining of right shoulder pain. Apparently the pain started a day or so prior to admission. She states that the pain is sharp, it is worse, with shortness of breath, and body movements. The patient has had a pain stimulator placed, at [facility]. The patient as mentioned above, his history of ongoing tobacco use, for 43 years. An ultrasound of the left chest was ordered, because of a left pleural effusion, and, x-ray/computed tomography scan, suggested a left lung mass, as well as a breast lesion. Currently, the patient's on room air. She is getting normal saline at 20 mL an hour. White count is 16.9, hemoglobin 11.7, hematocrit 36.4, and platelet count was 597,000. Coagulation studies are normal. Sodium 129, potassium 3.9, chlorides 91, CO2 29, BUN 7, and creatinine 0.47. The rest of the comprehensive metabolic profile is normal. Viral screen is negative. Initial chest x-ray shows COPD, with mild emphysema. There is a small left-sided pleural effusion, adjacent atelectasis and/or consolidation. A CT angiogram has multiple findings but no pulmonary embolism. There is a 2.3 x 1.6 cm soft tissue density in the right superior/lateral breast, concerning for primary neoplasm or metastasis. In addition, there is a 5.2 x 2.9 cm soft tissue density along the superior/medial left lung, with portions involving both the lung and extending directly into the mediastinum. Lesser soft tissue thickening extending into continuity with the mass along the pleura anteriorly, and posteriorly, to lung apex. Moderate size left-sided pleural effusion was also noted. In the right hilar region, there is a 2 x 1.5 cm lymph node, otherwise a right lung is relatively clear. Finally, there are small rounded lucent lesions in the posterior vertebral bodies, at T3, and T4, concerning for osseous metastasis. A chest ultrasound was ordered. The patient is seen today 02/24/2023 in follow-up on the regular medical floor. She is currently up ambulating in her room. Awake and alert in no acute distress. She is maintaining O2 saturations in the 90s on room air. She has normal thing of 20 ML's per hour. She's been afebrile. Hemodynamically stable. Computed tomography scan of the abdomen revealed a moderate left pleural effusion with adjacent atelectasis. No definitive mass or adenopathy in the abdomen or pelvis to indicate metastatic disease. Bone scan revealed no convincing evidence of osseous metastatic disease. However there is decreased sensitivity for purely lytic metastasis in that the T3/T4 lesion seen on 02/22/2023 remain suspicious. Ultrasound of the left chest pleural effusion revealed a 2.8 cm pocket. White count 8.9. Hemoglobin 11.2. Platelets 576. Sodium 1:30. Potassium 4.3. Bicarb 28. BUN 6. Creatinine 0.5. She is continued on ceftriaxone. Objective - Vital Signs Vital signs: Vital Signs Temp 97.8 F 02/24/23 12:40 Pulse 81 02/24/23 12:40 Resp 16 02/24/23 12:40 BP 137/66 02/24/23 12:40 Pulse Ox 92 L 02/24/23 12:40 FiO2 Intake & Output 02/23/23 02/24/23 02/24/23 18:59 06:59 18:59 Intake Total 580 Balance 580 Intake: Oral 580 Other: Voiding Method Toilet Toilet # Voids 2 2 - Exam GENERAL EXAM: Alert, pleasant 58-year-old female, on room air, fairly comfortable in no apparent distress. HEAD: Normocephalic. EYES: Normal reaction of pupils, equal size. NOSE: Clear with pink turbinates. THROAT: No erythema or exudates. NECK: No masses, no JVD. CHEST: No chest wall deformity. LUNGS: Equal air entry with crackles in the left lung base. CVS: S1 and S2 normal with no audible murmur, regular rhythm. ABDOMEN: No hepatosplenomegaly, normal bowel sounds, no guarding or rigidity. SPINE: No scoliosis or deformity SKIN: No rashes CENTRAL NERVOUS SYSTEM: No focal deficits, tone is normal in all 4 extremities. EXTREMITIES: There is no peripheral edema. No clubbing, no cyanosis. Peripheral pulses are intact. - Labs CBC & Chem 7: 02/24/23 06:53 02/24/23 06:53 Labs: Abnormal Lab Results - Last 24 Hours (Table) 02/24/23 02/24/23 Range/Units 06:53 06:53 Hgb 11.2 L (12.0-15.0) g/dL Hct 35.1 L (37.2-46.3) % MCH 26.4 L (27.0-32.0) pg MCHC 31.9 L (32.0-37.0) g/dL RDW 15.4 H (11.5-14.5) % Plt Count 576 H (140-440) X 10*3/uL Immature Gran # 0.05 H (0.00-0.04) X 10*3/uL Sodium 130 L (135-145) mmol/L Chloride 91 L (96-109) mmol/L BUN 5.8 L (9.0-27.0) mg/dL Creatinine 0.5 L (0.6-1.5) mg/dL BUN/Creatinine Ratio 11.60 L (12.00-20.00) Ratio Albumin/Globulin Ratio 1.34 L (1.60-3.17) Ratio Assessment and Plan Assessment: Lung mass, with left-sided pleural effusion, could represent malignancy, i.e. primary lung cancer History of tobacco use, for 43 years Left-sided pleural effusion Thoracic osseous lesions, suspicious for metastatic disease Right breast lesion, by breast ultrasound History of hypertension History of migraine cephalgia History of chronic back pain Status post spinal nerve stimulator implantation Plan: The patient was seen and evaluated Computed tomography scan of the abdomen, ultrasound of the chest, bone scan, labs and medications reviewed Requested interventional radiology for left-sided thoracentesis with enough fluid for cytology if possible Will need an outpatient PET scan and possible lung biopsy if fluid negative Plan is for an outpatient mammogram and biopsy of the right breast lesion Will have a follow-up in our office one week post discharge Follow up closely with medical oncology and breast surgeon This patient was seen independently by the pulmonary nurse practitioner addressing pulmonary issues I have personally seen and examined the patient, performed the documentation and the assessment and plan as written. Number of minutes spent on the visit: 24.
[2023-02-24] MEDS ORDERED: ALPRAZolam 0.25 MG TAB PO PRN (15:05)
--- NOTE | 2023-02-24 15:23 | XR ---
EXAMINATION TYPE: XR chest 1V portable DATE OF EXAM: 02/24/2023 Comparison: 02/22/2023 Clinical History: 58-year-old female status post left thoracentesis, pleural effusion Findings: Spinal stimulator array centered along the mid thoracic spinal canal. Heart normal size. No appreciab le pneumothorax. Improvement in the patient's previous small left pleural effusion after thoracentesi s. Trace pleural fluid may remain. Impression: Trace pleural fluid may remain after left thoracentesis. No appreciable pneumothorax.
[2023-02-24] MEDS: HYDROcodone/APAP 7.5-325MG 1 EACH TAB PO PRN (15:32)
--- NOTE | 2023-02-24 15:49 | US ---
EXAMINATION TYPE: US thoracentesis, diagnostic DATE OF EXAM: 02/24/2023 CLINICAL HISTORY: 58-year-old female presents with left pleural effusion. Referred for diagnostic tho racentesis. The procedure was discussed with the patient. The risks, complications, benefits, and alternatives we re discussed and any questions were answered. Informed consent was obtained. The patient was placed u pright at the edge of the bed and prepped and draped in the usual sterile fashion. All elements of maximal barrier technique were utilized. Ultrasound was utilized to determine the precise skin entry site along the left lower posterior hemit horax. A 5 Nepalese one-step catheter and trocar technique was utilized to access the pleural effusion under d irect ultrasound guidance. Approximately 660 mL of clear, dark yellow fluid was removed. A 60mL sample was labeled and sent for laboratory analysis. The patient was stable throughout the procedure and remained stable upon discharge from Department of Radiology. IMPRESSION: Successful diagnostic left-sided thoracentesis under ultrasound guidance. 660 mL fluid removed. A 60 mL sample is sent for laboratory analysis.
--- NOTE | 2023-02-24 19:28 | CT ---
EXAMINATION TYPE: CT brain wo/w con CT DLP: 2128.6 mGycm, Automated exposure control for dose reduction was used. DATE OF EXAM: 02/24/2023 3:21 PM COMPARISON: . CLINICAL INDICATION:Female, 58 years old with history of lung mass, staging, unable to have MRI; [facility], [place] staging TECHNIQUE: Axial CT images of the brain were obtained with coronal and sagittal reformats created and reviewed. Contrast used:100 mL of Isovue 300 without and with IV Contrast, Oral contrast used: none. FINDINGS: Extra-axial spaces: No abnormal extra-axial fluid collections. Ventricular system: Mildly dilated in proportion to cerebral atrophy. Cerebral parenchyma: No acute intraparenchymal hemorrhage or mass effect. The canela-white junction is well maintained. Mild generalized atrophy.. Scattered hypoattenuating areas are seen within the whit e matter, mild in degree. No abnormal enhancement is seen after the administration of intravenous con trast. Cerebellum: Unremarkable. Mass effect: No evidence of midline shift. Intracranial vasculature: Mild calcifications of the cavernous portion ICAs. Grossly normal enhanceme nt of the intracranial vasculature on this nonangiographic exam. Soft tissues: Normal. Calvarium/osseous structures: No acute bony abnormality. Paranasal sinuses and mastoid air cells: Clear. Visualized orbits: Orbital contents are intact. Note: Small lesions may not be, and often are not, evident on CT. For greater sensitivity, contrast M RI is the study of choice. But I am told this patient cannot have an MRI. If not, progress contrast CT head study may be of benefit as clinically warranted. IMPRESSION: 1. No acute intracranial abnormality. 2. No CT evidence of intracranial metastatic disease.
[2023-02-25 10:52] LABS: Basophils # (A) 0.09 X 10*3/uL (0.00-0.10); Basophils % (A) 0.9 %; Eosinophils # (A) 0.19 X 10*3/uL (0.04-0.35); HCT 32.9 % (37.2-46.3); HGB 10.7 g/dL (12.0-15.0); Lymphocytes # (A) 1.61 X 10*3/uL (0.90-5.00); Lymphocytes % (A) 16.8 %; MCHC 32.5 g/dL (32.0-37.0); Mean Platelet Volume 9.7 FL (9.5-12.2); Monocytes # (A) 0.76 X 10*3/uL (0.20-1.00); Monocytes % (A) 7.9 %; NRBC Per 100 WBC 0 X 10*3/uL (0.00-0.01); Neutrophils # (A) 6.88 X 10*3/uL (1.80-7.70); Neutrophils % (A) 71.9 %; Platelet Count 547 X 10*3/uL (140-440); RBC 4.11 X 10*6/uL (4.10-5.20); RDW 15.1 % (11.5-14.5); WBC 9.58 X 10*3/uL (4.50-10.00)
[2023-02-25 11:15] LABS: ALT 8 U/L (8-44); AST 17 U/L (13-35); Albumin 3.7 g/dL (3.8-4.9); Albumin/Globulin Ratio 1.42 Ratio (1.60-3.17); Alkaline Phosphatase 104 U/L (41-126); Blood Urea Nitrogen 7.9 mg/dL (9.0-27.0); Calcium 9.8 mg/dL (8.7-10.3); Carbon Dioxide 26.3 mmol/L (21.6-31.8); Chloride 88 mmol/L (96-109); Globulin 2.6 g/dL (1.6-3.3); Glucose 95 mg/dL (70-110); Potassium 3.7 mmol/L (3.5-5.5); Sodium 127 mmol/L (135-145); Total Bilirubin 0.4 mg/dL (0.3-1.2); Total Protein 6.3 g/dL (6.2-8.2)
--- NOTE | 2023-02-25 13:25 | P.PN ---
Subjective Progress Note Date: 02/25/23 This is a 58-year-old female who is been smoking for 43 years, one pack a cigarettes a day, who presents to the emergency department, on February 22, complaining of right shoulder pain. Apparently the pain started a day or so prior to admission. She states that the pain is sharp, it is worse, with shortness of breath, and body movements. The patient has had a pain stimulator placed, at [facility]. The patient as mentioned above, his history of ongoing tobacco use, for 43 years. An ultrasound of the left chest was ordered, because of a left pleural effusion, and, x-ray/computed tomography scan, suggested a left lung mass, as well as a breast lesion. Currently, the patient's on room air. She is getting normal saline at 20 mL an hour. White count is 16.9, hemoglobin 11.7, hematocrit 36.4, and platelet count was 597,000. Coagulation studies are normal. Sodium 129, potassium 3.9, chlorides 91, CO2 29, BUN 7, and creatinine 0.47. The rest of the comprehensive metabolic profile is normal. Viral screen is negative. Initial chest x-ray shows COPD, with mild emphysema. There is a small left-sided pleural effusion, adjacent atelectasis and/or consolidation. A CT angiogram has multiple findings but no pulmonary embolism. There is a 2.3 x 1.6 cm soft tissue density in the right superior/lateral breast, concerning for primary neoplasm or metastasis. In addition, there is a 5.2 x 2.9 cm soft tissue density along the superior/medial left lung, with portions involving both the lung and extending directly into the mediastinum. Lesser soft tissue thickening extending into continuity with the mass along the pleura anteriorly, and posteriorly, to lung apex. Moderate size left-sided pleural effusion was also noted. In the right hilar region, there is a 2 x 1.5 cm lymph node, otherwise a right lung is relatively clear. Finally, there are small rounded lucent lesions in the posterior vertebral bodies, at T3, and T4, concerning for osseous metastasis. A chest ultrasound was ordered. The patient is seen today 02/24/2023 in follow-up on the regular medical floor. She is currently up ambulating in her room. Awake and alert in no acute distress. She is maintaining O2 saturations in the 90s on room air. She has normal thing of 20 ML's per hour. She's been afebrile. Hemodynamically stable. Computed tomography scan of the abdomen revealed a moderate left pleural effusion with adjacent atelectasis. No definitive mass or adenopathy in the abdomen or pelvis to indicate metastatic disease. Bone scan revealed no convincing evidence of osseous metastatic disease. However there is decreased sensitivity for purely lytic metastasis in that the T3/T4 lesion seen on 02/22/2023 remain suspicious. Ultrasound of the left chest pleural effusion revealed a 2.8 cm pocket. White count 8.9. Hemoglobin 11.2. Platelets 576. Sodium 1:30. Potassium 4.3. Bicarb 28. BUN 6. Creatinine 0.5. She is continued on ceftriaxone. The patient is seen today 02/25/2023 in follow-up on the regular medical floor. She is sitting up in bed. Awake and alert in no acute distress. She did undergo a left-sided thoracentesis with interventional radiology yesterday and the removal of 600 mL of fluid. Cytology pending. Chest x-ray showed improved aeration of left lung base. No pneumothorax. Computed tomography scan of the brain revealed no evidence of metastasis. She is maintaining good O2 saturations in the 90s on room air. No IV fluids. White count 9.5. Hemoglobin 10.7. Platelets. Sodium 127. Potassium 3.7. Bicarb 26. BUN 8. Creatinine 0.5. Glucose 95. She states her pain is better controlled on the Toradol. Objective - Vital Signs Vital signs: Vital Signs Temp 98.6 F 02/25/23 06:59 Pulse 75 02/25/23 06:59 Resp 16 02/25/23 06:59 BP 120/52 02/25/23 06:59 Pulse Ox 97 02/25/23 06:59 FiO2 Intake & Output 02/24/23 02/25/23 02/25/23 18:59 06:59 18:59 Other: Voiding Method Toilet Toilet # Voids 1 2 - Exam GENERAL EXAM: Alert, 58-year-old female, fairly comfortable in no apparent distress. HEAD: Normocephalic. EYES: Normal reaction of pupils, equal size. NOSE: Clear with pink turbinates. THROAT: No erythema or exudates. NECK: No masses, no JVD. CHEST: No chest wall deformity. LUNGS: Equal air entry with crackles in the left lung base. CVS: S1 and S2 normal with no audible murmur, regular rhythm. ABDOMEN: No hepatosplenomegaly, normal bowel sounds, no guarding or rigidity. SPINE: No scoliosis or deformity SKIN: No rashes CENTRAL NERVOUS SYSTEM: No focal deficits, tone is normal in all 4 extremities. EXTREMITIES: There is no peripheral edema. No clubbing, no cyanosis. Peripheral pulses are intact. - Labs CBC & Chem 7: 02/25/23 06:52 02/25/23 06:52 Labs: Abnormal Lab Results - Last 24 Hours (Table) 02/25/23 02/25/23 Range/Units 06:52 06:52 Hgb 10.7 L (12.0-15.0) g/dL Hct 32.9 L (37.2-46.3) % MCH 26.0 L (27.0-32.0) pg RDW 15.1 H (11.5-14.5) % Plt Count 547 H (140-440) X 10*3/uL Immature Gran # 0.05 H (0.00-0.04) X 10*3/uL Sodium 127 L (135-145) mmol/L Chloride 88 L (96-109) mmol/L Anion Gap 12.70 H (4.00-12.00) mmol/L BUN 7.9 L (9.0-27.0) mg/dL Creatinine 0.5 L (0.6-1.5) mg/dL Albumin 3.7 L (3.8-4.9) g/dL Albumin/Globulin Ratio 1.42 L (1.60-3.17) Ratio Assessment and Plan Assessment: Lung mass, with left-sided pleural effusion, could represent malignancy, i.e. primary lung cancer History of tobacco use, for 43 years Left-sided pleural effusion, is post thoracentesis with 600 mL of fluid removed. Cytology pending Thoracic osseous lesions, suspicious for metastatic disease Right breast lesion, by breast ultrasound History of hypertension History of migraine cephalgia History of chronic back pain Status post spinal nerve stimulator implantation Plan: The patient was seen and evaluated Chest x-ray, labs and medications reviewed Stable and on room air Left-sided thoracentesis completed, cytology pending Plan is for an outpatient PET scan and possible lung biopsy if fluid negative Plan is for an outpatient mammogram and biopsy of the right breast lesion Follow-up in our office one week post discharge Follow up closely with medical oncology and breast surgeon This patient was seen independently by the pulmonary nurse practitioner addressing pulmonary issues I have personally seen and examined the patient, performed the documentation and the assessment and plan as written. Number of minutes spent on the visit: 22.
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
--- NOTE | 2023-02-25 14:20 | P.PCN ---
Description of Procedure: Preprocedure diagnosis. Myofascial pain. Myofascial trigger point. Postprocedure diagnosis. As above. Procedure done. Myofascial trigger point injection with local anesthetics and steroid at 3 points. Anesthesia. Ethyl chloride spray. Local anesthetic infiltration. Bedside, continuous pulse ox, EKG, blood pressure, and verbal communication was maintained with the patient. Blood loss. None. Indication. Discussed with the patient procedure, alternatives and possible complications which may include infection, bleeding, nerve damage, aggravation of pain. Patient understands and all questions were answered. Procedure note. After getting consent patient in the procedure area. Most tender points were identified and marked. A 25-gauge needle attached to syringe was introduced at the trigger points and after negative aspiration 5 mL solution injected at each trigger point. I injected 3 trigger points over the right posterior chest wall in right subscapularis and trapezius muscle medial to the inner border of scapula. 3 trigger points were injected using 10 mL solution which consists of 9 mL 0.5% ropivacaine mixed with 1 mL 80 mg of Depo-Medrol. Disposition. Patient tolerated the procedure well. No complication. Discharged home in stable condition.
--- NOTE | 2023-02-25 15:36 | P.PN ---
Subjective Progress Note Date: 02/25/23 At today's visit patient is reporting improvement in pain. Continues on norco, toradol and dilaudid prn. S/p trigger point injections today with pain management. Objective - Vital Signs Vital signs: Vital Signs Temp 98.0 F 02/25/23 13:37 Pulse 96 02/25/23 13:37 Resp 18 02/25/23 13:37 BP 134/61 02/25/23 13:37 Pulse Ox 99 02/25/23 13:37 FiO2 Intake & Output 02/24/23 02/25/23 02/25/23 18:59 06:59 18:59 Other: Voiding Method Toilet Toilet # Voids 1 2 - Constitutional General appearance: Present: average body habitus, no acute distress - EENT Eyes: Present: anicteric sclerae, EOMI ENT: Present: hearing grossly normal - Respiratory Details: breathing is even and unlabored - Cardiovascular Details: skin warm and dry - Integumentary Integumentary: Absent: cyanotic - Neurologic Neurologic Comment(s): grossly intact - Musculoskeletal Musculoskeletal: Present: strength equal bilaterally - Psychiatric Psychiatric: Present: A&O x's 3 - Labs CBC & Chem 7: 02/25/23 06:52 02/25/23 06:52 Labs: Abnormal Lab Results - Last 24 Hours (Table) 02/25/23 02/25/23 Range/Units 06:52 06:52 Hgb 10.7 L (12.0-15.0) g/dL Hct 32.9 L (37.2-46.3) % MCH 26.0 L (27.0-32.0) pg RDW 15.1 H (11.5-14.5) % Plt Count 547 H (140-440) X 10*3/uL Immature Gran # 0.05 H (0.00-0.04) X 10*3/uL Sodium 127 L (135-145) mmol/L Chloride 88 L (96-109) mmol/L Anion Gap 12.70 H (4.00-12.00) mmol/L BUN 7.9 L (9.0-27.0) mg/dL Creatinine 0.5 L (0.6-1.5) mg/dL Albumin 3.7 L (3.8-4.9) g/dL Albumin/Globulin Ratio 1.42 L (1.60-3.17) Ratio - Imaging and Cardiology CT Scan - head: report reviewed Assessment and Plan (1) Back pain Current Visit: Yes Status: Acute Priority: High Code(s): M54.9 - DORSALGIA, UNSPECIFIED SNOMED Code(s): 229400659 (2) Breast mass Current Visit: Yes Status: Acute Priority: High Code(s): N63.0 - UNSPECIFIED LUMP IN UNSPECIFIED BREAST SNOMED Code(s): 25484550 (3) Lung mass Current Visit: Yes Status: Acute Priority: High Code(s): R91.8 - OTHER NONSPECIFIC ABNORMAL FINDING OF LUNG FIELD SNOMED Code(s): 442945438 (4) Pleural effusion Current Visit: Yes Status: Acute Priority: High Code(s): J90 - PLEURAL EFFUSION, NOT ELSEWHERE CLASSIFIED SNOMED Code(s): 40841061 Plan: Lung mass/pleural effusions: -Presented with complaints of upper back pain. Patient reports she's been having intermittent stabbing pain in her right shoulder blade which she initially attributed to previous spinal issues. She did undergo recent cervical ablation. Reports last mammogram was a approx 4 years ago. Hx [id number] smoker. Mother had history of lung cancer. -Chest x-ray revealed COPD with mild emphysema. Small left pleural effusion with adjacent atelectasis and/or consolidation. CT chest negative for PE. A 2.3 x 1.6 cm soft tissue density in the right superolateral breast. 5.2 x 2.9 cm soft tissue density along the superomedial left lung with portions involving both the lung and extending directly into the mediastinum. Lesser soft tissue thickening extending and contiguity with the mass, along the pleural anteriorly and posteriorly to the lung apex. Moderate size left pleural effusion. Multiple small areas of nodular plaque-like thickening along the left oblique fissure. Right hilar region adenopathy up to 2 x 1.5 cm. Small rounded lucent lesions in the posterior vertebral bodies at T3 and T4. -Findings and concerns for malignancy discussed with pt. Discussed the need for lung biopsy and/or thoracentesis with cytology to determine lung primary vs breast primary vs two separate primary sites. Pt was agreeable to proceed with further testing -Pulmonolgy following. S/p thoracentesis, 650cc removed. Cytology pending -CT AP and bone scan ordered for staging. CT abdomen and pelvis revealed no definite evidence of mass or adenopathy within the abdomen or pelvis to indicate metastatic disease. Bone scan showed no convincing scintigraphic evidence for osseous metastatic disease. -US right breast revealed ill-defined hypoechoic area 10 cm from the nipple. The area likely corresponds to prior mammographic area and likely benign. Breast surgeon, Dr. Conner Ramirez following and is recommending bilateral mammography and probable right breast biopsy outpatient -Pt unable to have MRI due to spinal stimulator. CT head obtained to complete staging. CT head negative for metastasis -Reporting improved pain control on current regimen. S/p trigger point injections with pain management. Will continue to monitor.
[2023-02-25 21:13] VITALS: RESP 16
[2023-02-26 03:53] VITALS: TEMP 98
--- NOTE | 2023-02-26 07:32 | PN ---
PROGRESS NOTE DATE OF SERVICE: 02/25/2023 HISTORY OF PRESENT ILLNESS: This is a 58-year-old woman who was admitted with right shoulder and right back pain, extremely complicated with also right breast mass. Dr. Menchaca recommended outpatient evaluation. The patient also was being evaluated to rule out lung cancer. The patient had pleural fluid aspiration done today by Dr. Verma. Cytology is pending at this time. The patient also has significant pain issues, slightly better with Toradol, pain management, trigger point injections are awaited at this time. Otherwise, 600 mL of fluid was removed by Interventional Radiology yesterday. CT of the brain showed no abnormality, bone scan was also done which showed no evidence of metastatic disease. Decreased status and T3-54 lesions reported suspicious. PAST MEDICAL HISTORY: Reviewed. REVIEW OF SYSTEMS: A 14-point review is negative except as mentioned earlier. CURRENT MEDICATIONS: Reviewed include Ketoralac, dose and rest of medications reviewed. PHYSICAL EXAMINATION: VITAL SIGNS: Pulse 75, blood pressure 110/50, respirations 16. HEENT: Conjunctivae normal. CARDIOVASCULAR: S1, S2. RESPIRATIONS: Diminished. ABDOMEN: Soft. NERVOUS SYSTEM: Nonfocal. LABORATORY DATA: Sodium 127, rest of the labs are noted. ASSESSMENT: 1. Right shoulder and right back pain for evaluation, rule out malignancy. 2. Pleurisy versus pneumonia versus mets with failure of outpatient treatment. 3. Left pleural effusion, status post thoracoscopy to rule out malignancy. 4. Possible right breast mass, rule out malignancy. 5. Rule out lung cancer. 6. History of previous COVID. 7. Pain pump. 8. Increased WBC. 9. Hypertension. 10.Acute on chronic pain syndrome, on pain stimulator. 11.History of DJD. 12.Multiple complex medical issues. 13.Borderline abnormal suspicious bone scan. RECOMMENDATIONS: This 58-year-old woman presented with multiple complex medical issues, we will monitor the patient closely. Continue the current medications. We will follow the patient with multiple consultants. Pain management is following the patient closely, otherwise Hematology Oncology is also following the patient closely. Await fluid report. Otherwise, I would recommend close followup with Pulmonary and Oncology as outpatient setting. I would recommend repeat labs. The patient also has appointment in [facility] for the pain stimulator and other necessary things. The patient also would like to follow up with [facility] with abnormal chest also, the report will be arranged, otherwise as mentioned earlier the overall prognosis was extremely guarded in this patient with multiple complex abnormalities and further recommendations to follow. See orders for details. MMODL / IJN: [id number] / ULI
[2023-02-26 08:13] VITALS: BP 110/71; PULSE 64
--- NOTE | 2023-02-26 11:32 | P.PN ---
Subjective Progress Note Date: 02/26/23 This is a 58-year-old female who is been smoking for 43 years, one pack a cigarettes a day, who presents to the emergency department, on February 22, complaining of right shoulder pain. Apparently the pain started a day or so prior to admission. She states that the pain is sharp, it is worse, with shortness of breath, and body movements. The patient has had a pain stimulator placed, at [facility]. The patient as mentioned above, his history of ongoing tobacco use, for 43 years. An ultrasound of the left chest was ordered, because of a left pleural effusion, and, x-ray/computed tomography scan, suggested a left lung mass, as well as a breast lesion. Currently, the patient's on room air. She is getting normal saline at 20 mL an hour. White count is 16.9, hemoglobin 11.7, hematocrit 36.4, and platelet count was 597,000. Coagulation studies are normal. Sodium 129, potassium 3.9, chlorides 91, CO2 29, BUN 7, and creatinine 0.47. The rest of the comprehensive metabolic profile is normal. Viral screen is negative. Initial chest x-ray shows COPD, with mild emphysema. There is a small left-sided pleural effusion, adjacent atelectasis and/or consolidation. A CT angiogram has multiple findings but no pulmonary embolism. There is a 2.3 x 1.6 cm soft tissue density in the right superior/lateral breast, concerning for primary neoplasm or metastasis. In addition, there is a 5.2 x 2.9 cm soft tissue density along the superior/medial left lung, with portions involving both the lung and extending directly into the mediastinum. Lesser soft tissue thickening extending into continuity with the mass along the pleura anteriorly, and posteriorly, to lung apex. Moderate size left-sided pleural effusion was also noted. In the right hilar region, there is a 2 x 1.5 cm lymph node, otherwise a right lung is relatively clear. Finally, there are small rounded lucent lesions in the posterior vertebral bodies, at T3, and T4, concerning for osseous metastasis. A chest ultrasound was ordered. The patient is seen today 02/24/2023 in follow-up on the regular medical floor. She is currently up ambulating in her room. Awake and alert in no acute distress. She is maintaining O2 saturations in the 90s on room air. She has normal thing of 20 ML's per hour. She's been afebrile. Hemodynamically stable. Computed tomography scan of the abdomen revealed a moderate left pleural effusion with adjacent atelectasis. No definitive mass or adenopathy in the abdomen or pelvis to indicate metastatic disease. Bone scan revealed no convincing evidence of osseous metastatic disease. However there is decreased sensitivity for purely lytic metastasis in that the T3/T4 lesion seen on 02/22/2023 remain suspicious. Ultrasound of the left chest pleural effusion revealed a 2.8 cm pocket. White count 8.9. Hemoglobin 11.2. Platelets 576. Sodium 1:30. Potassium 4.3. Bicarb 28. BUN 6. Creatinine 0.5. She is continued on ceftriaxone. The patient is seen today 02/25/2023 in follow-up on the regular medical floor. She is sitting up in bed. Awake and alert in no acute distress. She did undergo a left-sided thoracentesis with interventional radiology yesterday and the removal of 600 mL of fluid. Cytology pending. Chest x-ray showed improved aeration of left lung base. No pneumothorax. Computed tomography scan of the brain revealed no evidence of metastasis. She is maintaining good O2 saturations in the 90s on room air. No IV fluids. White count 9.5. Hemoglobin 10.7. Platelets. Sodium 127. Potassium 3.7. Bicarb 26. BUN 8. Creatinine 0.5. Glucose 95. She states her pain is better controlled on the Toradol. The patient is seen today 02/26/2023 in follow-up on the regular medical floor. She is awake and alert in no acute distress. Resting comfortably in bed. She is maintaining good O2 saturations in the 90s on room air. She's been afebrile. Hemodynamically stable. Pleural fluid cytology results pending. She did undergo myofascial trigger point injection with local anesthetics by anesthesiology yesterday and her pain is better controlled. She remains on ceftriaxone. Normal saline at KVO. Objective - Vital Signs Vital signs: Vital Signs Temp 98.0 F 02/26/23 07:38 Pulse 64 02/26/23 07:38 Resp 16 02/26/23 07:38 BP 110/71 02/26/23 07:38 Pulse Ox 96 02/26/23 07:38 FiO2 Intake & Output 02/25/23 02/26/23 02/26/23 18:59 06:59 18:59 Intake Total 100 590 Balance 100 590 Intake: Intake, IV Titration 100 Amount cefTRIAXone 1 gm In 100 Sodium Chloride 0.9% 50 ml @ 100 mls/hr IVPB Q24HR [facility] Rx#:[id number] Oral 590 Other: Voiding Method Toilet # Voids 4 2 - Exam GENERAL EXAM: Alert, pleasant 58-year-old female, comfortable in no apparent distress. HEAD: Normocephalic. EYES: Normal reaction of pupils, equal size. NOSE: Clear with pink turbinates. THROAT: No erythema or exudates. NECK: No masses, no JVD. CHEST: No chest wall deformity. LUNGS: Equal air entry with crackles in the left lung base. CVS: S1 and S2 normal with no audible murmur, regular rhythm. ABDOMEN: No hepatosplenomegaly, normal bowel sounds, no guarding or rigidity. SPINE: No scoliosis or deformity SKIN: No rashes CENTRAL NERVOUS SYSTEM: No focal deficits, tone is normal in all 4 extremities. EXTREMITIES: There is no peripheral edema. No clubbing, no cyanosis. Peripheral pulses are intact. - Labs CBC & Chem 7: 02/25/23 06:52 02/25/23 06:52 Assessment and Plan Assessment: Lung mass, with left-sided pleural effusion, could represent malignancy, i.e. p rimary lung cancer History of tobacco use, for 43 years Left-sided pleural effusion, status post thoracentesis with 600 mL of fluid removed on 02/24/2023. Cytology pending Thoracic osseous lesions, suspicious for metastatic disease Right breast lesion, by breast ultrasound History of hypertension History of migraine cephalgia History of chronic back pain, status post spinal nerve stimulator implantation at [facility] Plan: The patient was seen and evaluated Medications reviewed Stable and on room air Plan is for an outpatient PET scan and possible lung biopsy if fluid negative Plan is for an outpatient mammogram and biopsy of the right breast lesion Plan is for follow-up at [facility] regarding her spinal nerve stimulator Follow up closely with medical oncology and breast surgeon Follow-up in our office in 1 week This patient was seen independently by the pulmonary nurse practitioner addressing pulmonary issues I have personally seen and examined the patient, performed the documentation and the assessment and plan as written. Number of minutes spent on the visit: 23.
--- NOTE | 2023-02-26 23:20 | DS ---
DISCHARGE SUMMARY FINAL DIAGNOSES: 1. Right shoulder and back pain, possibly musculoskeletal, status post injection, improved. 2. Pleurisy versus pneumonia versus mets with failure of outpatient treatment. 3. Left pleural effusion, status post thoracocentesis, rule out malignancy, report awaiting. 4. Possible right breast mass, rule out malignancy for outpatient followup. 5. Rule out lung cancer. 6. History of previous COVID. 7. Pain pump. 8. Increased WBC. 9. Hypertension. 10.Acute on chronic pain syndrome. 11.History of degenerative joint disease. 12.Multiple complex medical issues. 13.Borderline abnormal suspicious bone scan. DISCHARGE DISPOSITION: The patient will be discharged in stable condition with guarded prognosis. Total time taken 35 minutes. HISTORY OF PRESENT ILLNESS: This is a 58-year-old woman with a past medical history of multiple medical problems, admitted with back pain and multiple complex abnormalities as listed above. The patient is seen by multiple consultants during the hospitalization. Thoracocentesis was done. Cytology is being awaited to rule out the possibility of malignancy. Dr. Beebe saw the patient for the right breast mass and recommended outpatient followup. The Pulmonology and Oncology are also following the patient. The patient also had a pain pump being followed by [facility]. The patient also had abnormal bone scan. The patient will be following up at [facility] and also with Primary Physician, Dr. Richardson Hernandez for continued followup. PHYSICAL EXAMINATION: VITAL SIGNS: Stable. CARDIOVASCULAR: S1, S2. ABDOMEN: Soft. NERVOUS SYSTEM: No focal deficits. DISCHARGE MEDICATIONS: The new medications are, 1. Ceftin 500 mg p.o. b.i.d. for 3 more days. 2. Motrin p.r.n. 3. Senna p.r.n. Resume the rest of the home medications and follow up with Dr. Beebe. Follow up with Dr. Verma. Follow up with Dr. Hernandez as recommended. MMODL / IJN: [id number] /
--- NOTE | 2023-03-01 19:15 | CDI ---
Documentation Clarification Form Date: 03/01/2023 06:51:13 PM From: Yin Marques Phone: Admit Date: 02/22/2023 05:10:00 PM Patient Name: Esther Arora Visit Number: [id number] Discharge Date: 02/26/2023 12:49:00 PM ATTENTION: The Clinical Documentation Specialists (CDI) and [facility] Coding Staff appreciate your assistance in clarifying documentation. Please respond to the clarification below the line at the bottom and electronically sign. The CDI & [facility] Coding staff will review the response and follow-up if needed. Please note: Queries are made part of the Legal Health Record. If you have any questions, please contact the author of this message via ITS. Dr. Sherry lAvarez The final diagnosis of the pathology report states: Metastatic pulmonary adenocarcinoma. Coding guidelines do not allow coding professionals to code based on pathology results; therefore, clarification is requested. History/risk factors: 58yo F, acute on chronic syndrome w spinal nervestimulator, Rt shoulder & back pain, Lt pleural effusion, Hx arthrodesis, effusions, HTN, Rt breast mass, OS, lesion of T3-4 w no convincing evidence ofosseousmetastatic disease Clinical Indicators: Tumorcells stain positive with CK7 and focally stain positive for both TTF-1 and Napsin A. These stain results support the diagnosis ofmetastaticpulmonaryadenocarcinoma. MOC-31 is positive withintumorcells. Tumorcells are negative for GATA3, mammaglobin and ER (ER stain for diagnostic purposes). Intradepartmental consultation withDr. Kendrick Cardoza in agreement with the assessment ofmalignancy. Treatment: Leftpleural effusion. 660 ml collected. 60 mlretained. Thoracentesis. Plan is for OPPET scanand possiblelung bxif fluidnegative. Plan is for OPmammogramandbx of the Rt breastlesion. Plan is forfollow-upat [facility] regarding her spinal nerve stimulator. Please clarify if you agree with the pathology report diagnosis of Metastatic pulmonary adenocarcinoma: [ x ] Yes [ x] Metastaticpulmonaryadenocarcinoma [ ] RT superior/lateral breast neoplasm [ ] Posterior T3 and T4 osseous metastasis [ ] No [ ] Metastaticpulmonaryadenocarcinoma [ ] RT superior/lateral breast neoplasm [ ] Posterior T3 and T4 osseous metastasis [ ] Other (please specify) [ ] Unable to determine (Template Last Revised: April 2020) MTDD
== END 2023-02-26 12:49 | disposition home or self-care (01) | DRG 181 ==
LOC: EC 11:37 → 5NMEDONC 17:10
PROVIDERS: ADMIT Hospitalist; ATTEND Hospitalist
PROC: 0W9B3ZZ Drainage of Left Pleural Cavity, Percutaneous Approach (ICD-10-PCS; principal; 2023-02-24)
PROC: 3E0233Z Introduction of Anti-inflammatory into Muscle, Percutaneous Approach (ICD-10-PCS; 2023-02-25)
PROC: 3E023BZ Introduction of Anesthetic Agent into Muscle, Percutaneous Approach (ICD-10-PCS; 2023-02-25)
DX: C34.92 Malignant neoplasm of unspecified part of left bronchus or lung (principal); C78.2 Secondary malignant neoplasm of pleura; J43.9 Emphysema, unspecified; I10 Essential (primary) hypertension; M48.02 Spinal stenosis, cervical region; M47.812 Spondylosis without myelopathy or radiculopathy, cervical region; F17.210 Nicotine dependence, cigarettes, uncomplicated; G89.4 Chronic pain syndrome; M79.18 Myalgia, other site; M19.90 Unspecified osteoarthritis, unspecified site; M89.9 Disorder of bone, unspecified; N63.11 Unspecified lump in the right breast, upper outer quadrant; R59.0 Localized enlarged lymph nodes; Z96.651 Presence of right artificial knee joint; Z96.643 Presence of artificial hip joint, bilateral; Z71.6 Tobacco abuse counseling; Z96.82 Presence of neurostimulator; Z86.16 Personal history of COVID-19; Z80.6 Family history of leukemia; Z80.3 Family history of malignant neoplasm of breast; Z80.1 Family history of malignant neoplasm of trachea, bronchus and lung; Z79.899 Other long term (current) drug therapy; Z87.42 Personal history of other diseases of the female genital tract; Z90.711 Acquired absence of uterus with remaining cervical stump; Z98.1 Arthrodesis status; Z80.0 Family history of malignant neoplasm of digestive organs; Z81.8 Family history of other mental and behavioral disorders; Z91.048 Other nonmedicinal substance allergy status; Z88.5 Allergy status to narcotic agent; Z88.8 Allergy status to other drugs, medicaments and biological substances; Z88.2 Allergy status to sulfonamides
CPT/HCPCS: 32555; 36415; 70470; 71045; 71046; 71275; 74177; 76604; 78306; 80048; 80053; 83880; 84484; 85025; 85610; 85730; 87636; 88108; 88305; 88341; 88342; 96372; 96374; 96376; 99285

== ENCOUNTER → 2023-03-01 | Outpatient (CLI) | payer MEDICARE, OTHER ==
--- NOTE | 2023-03-01 09:38 | MM ---
Reason for Exam: Clinical finding. Last mammogram was performed 5 year(s) and 6 month(s) ago. Indicated Problems: Lump or thickening of the right side. Patient History: Menarche at age 14. First Full-Term at age 19. Hysterectomy at age 43. Postmenopausal. Patient has history of breast feeding. Core Biopsy on the Right side. Excisional Biopsy on the Right side. 05/19/2001, Benign Stereotactic Core Biopsy on the right side. Maternal grandmother had breast cancer. Risk Values: Lolis 5 year model risk: 1.4%. NCI Lifetime model risk: 8.5%. Prior Study Comparison: 02/16/2013 Left Diagnostic Mammogram, [facility]. 12/06/2013 Bilateral Screening Mammogram, [facility]. 03/18/2015 Bilateral Screening Mammogram, [facility]. 04/28/2016 Bilateral Screening Mammogram, [facility]. 09/08/2017 Bilateral Screening Mammogram, [facility]. Tissue Density: There are scattered fibroglandular densities. Findings: Analyzed By CAD. Unchanged portable asymmetry posterior upper quadrant right breast with adjacent microclip. This area seems to correspond to the questioned mass on 02/22/2023 CT chest. However, sonographically, there is no significant change from prior exams. Overall Assessment: Benign, BI-RAD 2 Management: Screening Mammogram of both breasts in 1 year. . Results were given to the patient verbally at the time of exam. Patient should continue monthly self-breast exams. A clinical breast exam by your physician is recommended on an annual basis. This exam should not preclude additional follow-up of suspicious palpable abnormalities. Note on Lolis scores and lifetime risk: 1. A Lolis score greater than 3% is considered moderate risk. If this is the case, consider specialist referral to assess eligibility for a risk reducing agent. 2. If overall lifetime risk for the development of breast cancer is 20% or higher, the patient may qualify for future screening with alternating mammogram and breast MRI. Electronically signed and approved by: Jacky Meyers M.D. Radiologist
== END | disposition home or self-care (01) ==
LOC: RADMAMWWP 08:53
PROVIDERS: ATTEND Surgery
DX: N63.10 Unspecified lump in the right breast, unspecified quadrant (principal); N63.20 Unspecified lump in the left breast, unspecified quadrant; R92.323 Mammographic fibroglandular density, bilateral breasts; Z80.3 Family history of malignant neoplasm of breast; Z78.0 Asymptomatic menopausal state
CPT/HCPCS: 77066; G0279; 77062

== ENCOUNTER 2023-03-12 10:29 | Inpatient (IN) | payer MEDICARE, OTHER ==
[2023-03-12] MEDS ORDERED: HYDROmorphone 0.5 MG/0.5 ML SYRINGE IVP STA (11:07)
[2023-03-12 11:33] LABS: Basophils # (A) 0.1 k/uL (0-0.2); Basophils % (A) 0 %; Eosinophils # (A) 0.2 k/uL (0-0.7); Eosinophils % (A) 1 %; HCT 34.4 % (34.0-46.0); HGB 11.4 gm/dL (11.4-16.0); Lymphocytes # (A) 1.8 k/uL (1.0-4.8); Lymphocytes % (A) 13 %; MCH 27.6 pg (25.0-35.0); MCHC 33.3 g/dL (31.0-37.0); MCV 83.1 fL (80.0-100.0); Mean Platelet Volume 6.7; Monocytes # (A) 0.5 k/uL (0-1.0); Monocytes % (A) 3 %; Neutrophils # (A) 11.3 k/uL (1.3-7.7); Neutrophils % (A) 81 %; Platelet Count 555 k/uL (150-450); RBC 4.14 m/uL (3.80-5.40); RDW 15.8 % (11.5-15.5)
[2023-03-12 11:46] LABS: ALT 15 U/L (4-34); AST 19 U/L (14-36); African American GFR (CKD) >90 (>60 ml/min/1.73 sqM); Alkaline Phosphatase 130 U/L (38-126); Anion Gap 5 mmol/L; Blood Urea Nitrogen 7 mg/dL (7-17); Calcium 9.7 mg/dL (8.4-10.2); Carbon Dioxide 29 mmol/L (22-30); Chloride 101 mmol/L (98-107); Glucose 103 mg/dL (74-99); Magnesium 1.9 mg/dL (1.6-2.3); Non-African American GFR(CKD) >90 (>60 ml/min/1.73 sqM); Potassium 4.2 mmol/L (3.5-5.1); Sodium 135 mmol/L (137-145); Total Bilirubin 0.4 mg/dL (0.2-1.3); Total Protein 7.2 g/dL (6.3-8.2)
[2023-03-12 11:55] LABS: INR 0.9 (<1.2); Partial Thromboplastin Time 22.8 sec (22.0-30.0); Prothrombin Time 10.4 sec (10.0-12.5)
--- NOTE | 2023-03-12 12:10 | XR ---
EXAMINATION TYPE: XR chest 2V DATE OF EXAM: 03/12/2023 11:39 AM CLINICAL INDICATION:Female, 58 years old with history of difficulty breathing; [facility] COMPARISON: Chest radiographs from 02/24/2023 TECHNIQUE: XR chest 2V Frontal and lateral views of the chest. FINDINGS: Lungs/Pleura: New blunting of left costophrenic angle. There is no evidence of right pleural effusion , focal consolidation, or pneumothorax. Pulmonary vascularity: Unremarkable. Heart/mediastinum: Cardiomediastinal silhouette is unremarkable. Musculoskeletal: No acute osseous pathology. IMPRESSION: New moderate left pleural effusion.
[2023-03-12] MEDS ORDERED: HYDROmorphone 1 MG/ML 1 ML SYRINGE IVP PRN (13:08)
[2023-03-12] MEDS ORDERED: HYDROcodone/APAP 5-325MG 1 EACH TAB PO PRN (13:08)
[2023-03-12] MEDS ORDERED: NALOXONE 0.4 MG/ML 1 ML VIAL IV PRN (13:08)
[2023-03-12] MEDS ORDERED: ONDANSETRON 4 MG/2 ML VIAL IVP PRN (13:08)
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
[2023-03-12] MEDS: HYDROmorphone 0.5 MG/0.5 ML SYRINGE IVP PRN (14:22)
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
--- NOTE | 2023-03-12 18:50 | US ---
EXAMINATION TYPE: US chest DATE OF EXAM: 03/12/2023 COMPARISON: NONE CLINICAL INDICATION: Female, 58 years old with history of Left pleural effusion; TECHNIQUE: Targeted ultrasound of the posterior lower left hemithorax EXAM MEASUREMENTS: Left Pleural Effusion pocket size: 9.8 cm Left skin surface to fluid distance: 1.9 cm Left side marked for possible thoracentesis outside the dept. Pulmonologists are able to review the images in the patient?s EMR. IMPRESSIONS: 1. Left pleural effusion
[2023-03-12] MEDS ORDERED: tiZANidine 4 MG TAB PO PRN (19:36)
[2023-03-12] MEDS: cloNIDine HCL 0.1 MG TAB PO SCH (20:03)
[2023-03-12] MEDS ORDERED: IBUPROFEN 600 MG TAB PO PRN (22:07)
[2023-03-12] MEDS ORDERED: SENNOSIDES 8.6 MG TAB PO PRN (22:07)
[2023-03-12] MEDS ORDERED: PANTOPRAZOLE 40 MG TABLET PO PRN (22:07)
[2023-03-12] MEDS: HEPARIN SODIUM,PORCINE 5,000 UNIT/ML 1 ML VIAL SQ SCH (23:50)
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
[2023-03-13] MEDS ORDERED: polyethylene glycoL 3350 17 GM POWD.PACK PO PRN (00:17)
[2023-03-13] MEDS: HYDROmorphone 0.5 MG/0.5 ML SYRINGE IVP PRN ×3 (02:01→13:40)
[2023-03-13] MEDS: HYDROcodone/APAP 7.5-325MG 1 EACH TAB PO PRN ×2 (06:39→11:53)
[2023-03-13 08:12] LABS: Carbon Dioxide 26 mmol/L (22-30)
[2023-03-13 08:45] LABS: African American GFR (CKD) >90 (>60 ml/min/1.73 sqM); Anion Gap 6 mmol/L; Blood Urea Nitrogen 7 mg/dL (7-17); Calcium 9.7 mg/dL (8.4-10.2); Chloride 102 mmol/L (98-107); Glucose 86 mg/dL (74-99); Non-African American GFR(CKD) >90 (>60 ml/min/1.73 sqM); Potassium 4.7 mmol/L (3.5-5.1); Sodium 134 mmol/L (137-145)
[2023-03-13 09:03] LABS: Eosinophils # (A) 0.19 X 10*3/uL (0.04-0.35); Eosinophils % (A) 1.9 %; HCT 33.1 % (37.2-46.3); HGB 10.5 g/dL (12.0-15.0); Lymphocytes # (A) 2.12 X 10*3/uL (0.90-5.00); Lymphocytes % (A) 21.3 %; MCH 26.1 pg (27.0-32.0); MCHC 31.7 g/dL (32.0-37.0); MCV 82.1 FL (80.0-97.0); Mean Platelet Volume 9.7 FL (9.5-12.2); Monocytes # (A) 0.91 X 10*3/uL (0.20-1.00); Monocytes % (A) 9.1 %; NRBC Per 100 WBC 0 X 10*3/uL (0.00-0.01); Neutrophils # (A) 6.61 X 10*3/uL (1.80-7.70); Neutrophils % (A) 66.3 %; Platelet Count 570 X 10*3/uL (140-440); RBC 4.03 X 10*6/uL (4.10-5.20); WBC 9.97 X 10*3/uL (4.50-10.00)
--- NOTE | 2023-03-13 09:21 | XR ---
EXAMINATION TYPE: XR chest 1V portable DATE OF EXAM: 03/13/2023 COMPARISON: 03/12/2023 INDICATION: Post left thoracentesis TECHNIQUE: Single frontal view of the chest is obtained. FINDINGS: The heart size is normal. The pulmonary vasculature is normal. There is a small left pleural effusion diminished from comparison. No pneumothorax is evident. Stimulator leads are within the mid thoracic region. IMPRESSION: 1. Diminished left pleural effusion. No pneumothorax evident.
[2023-03-13] MEDS: HEPARIN SODIUM,PORCINE 5,000 UNIT/ML 1 ML VIAL SQ SCH ×3 (09:26→23:43)
[2023-03-13] MEDS: amLODIPine 5 MG TAB PO SCH (09:26)
[2023-03-13] MEDS: MULTIVITAMINS, THERA 1 EACH TAB PO SCH (09:26)
--- NOTE | 2023-03-13 11:33 | OP ---
OPERATIVE REPORT DATE OF SERVICE : PROCEDURE PERFORMED: Left-sided thoracentesis. PREOPERATIVE DIAGNOSIS: Malignant pleural effusion/recurrent. POSTOPERATIVE DIAGNOSIS: Malignant pleural effusion/recurrent. ANESTHESIA USED: 2 mL of 1% lidocaine. DESCRIPTION OF PROCEDURE: The patient had an ultrasound done yesterday, and the fluid was localized with ultrasound, it correlated to the level of the 8th intercostal space and tip of the scapula. Hence, the patient was placed in sitting upright position, the area below the left scapula was prepared in a sterile fashion. Drapes were applied. At the site of 8th intercostal space and tip of the scapula, the area was locally anesthetized with lidocaine. The pleural space was entered and the fluid was localized. Then, a small tiny incision was made, standard thoracentesis catheter and needle used. The needle was advanced into the pleural space and as the fluid was obtained, the catheter was advanced over the needle into the pleural space. Roughly 1550 mL of seymour colored fluid was removed from the right pleural space. The patient tolerated the procedure well, no complications, the fluid was discarded because we already have a tissue diagnosis on the fluid from previous thoracentesis. Chest x-ray showed no complications and significant improvement, almost near complete resolution of her pleural effusion. MMODL / IJN: [id number] /
--- NOTE | 2023-03-13 11:58 | P.PN ---
Subjective Progress Note Date: 03/13/23 This is a pleasant 58-year-old female with a history of chronic and ongoing tobacco dependence of greater than 40 years, a right breast mass that was going to be worked up in the outpatient setting. During her recent hospitalization she was found to have a left-sided pleural effusion and had undergone a thoracentesis on 02/25/2023. That fluid was sent for metastatic pulmonary adenocarcinoma. There are suspicious lytic lesions noted on T3/T4 as well. She was discharged home on February 26, 2023. She Schuyler presented back to the emergency room today with complaints of increasing shortness of breath and left- sided chest wall pain. Chest x-ray did reveal recurrent left-sided pleural effusion. White count 14.0. Hemoglobin 11.4. Sodium 135. Potassium 4.2. Bicarb 29. BUN 7. Creatinine 0.51. INR 0.9. Troponin negative x 1. She is seen today in consultation on the regular medical floor. She is laying flat in bed. Maintaining O2 saturations in the upper 90s on room air. Comfortable at rest but dyspneic with minimal exertion. The patient is seen today March 13, 2023 in follow-up on the regular medical floor. She is awake and alert in no acute distress. She is maintaining O2 satu rations in the 90s on room air. She is still having ongoing left-sided chest discomfort. She is requesting thoracentesis to be performed today. Ultrasound did reveal a 9.8 cm left pleural effusion. Dr. Alfonso did go ahead and perform the left-sided thoracentesis with 1550 mL of fluid removed. Follow-up chest x- ray revealed no evidence of pneumothorax. White count 9.9. Hemoglobin 10.5. Sodium 134. Potassium 4.7. Bicarb 26. BUN 7. Creatinine 0.56. She remains on heparin for DVT prophylaxis. Objective - Vital Signs Vital signs: Vital Signs Temp 98.9 F 03/13/23 06:55 Pulse 83 03/13/23 08:45 Resp 16 03/13/23 08:45 BP 149/74 03/13/23 06:55 Pulse Ox 97 03/13/23 11:22 FiO2 Intake & Output 03/12/23 03/13/23 03/13/23 18:59 06:59 18:59 Weight 68.039 kg Other: Voiding Method Toilet Toilet # Voids 3 - Exam GENERAL EXAM: Alert, pleasant 58-year-old female, on room air, comfortable in no apparent distress. HEAD: Normocephalic. EYES: Normal reaction of pupils, equal size. NOSE: Clear with pink turbinates. THROAT: No erythema or exudates. NECK: No masses, no JVD. CHEST: No chest wall deformity. LUNGS: Equal air entry with crackles in left lung base, diminished. CVS: S1 and S2 normal with no audible murmur, regular rhythm. ABDOMEN: No hepatosplenomegaly, normal bowel sounds, no guarding or rigidity. SPINE: No scoliosis or deformity SKIN: No rashes CENTRAL NERVOUS SYSTEM: No focal deficits, tone is normal in all 4 extremities. EXTREMITIES: There is no peripheral edema. No clubbing, no cyanosis. Peripheral pulses are intact. - Labs CBC & Chem 7: 03/13/23 06:32 03/13/23 06:32 Labs: Abnormal Lab Results - Last 24 Hours (Table) 03/13/23 03/13/23 Range/Units 06:32 06:32 RBC 4.03 L (4.10-5.20) X 10*6/uL Hgb 10.5 L (12.0-15.0) g/dL Hct 33.1 L (37.2-46.3) % MCH 26.1 L (27.0-32.0) pg MCHC 31.7 L (32.0-37.0) g/dL RDW 17.0 H (11.5-14.5) % Plt Count 570 H (140-440) X 10*3/uL Sodium 134 L (137-145) mmol/L Assessment and Plan Assessment: Left-sided chest wall pain secondary to recurrent left-sided pleural effusion. Status post thoracentesis today March 13, 2023 with 1550 mL removed Recent diagnosis of metastatic pulmonary adenocarcinoma from thoracentesis on 02/24/2023 Thoracic osseous lesions suspicious for metastatic disease Chronic tobacco dependence of greater than 40 years Right breast mass, being worked up in the outpatient setting History of hypertension History of migraine cephalgia History of chronic back pain status post spine nerve stimulator implanted at [facility] Plan: The patient was seen and evaluated Ultrasound of the chest, chest x-ray, labs and medications reviewed Left-sided thoracentesis performed today by Dr. Naty Out patient consult with cardiothoracic surgery for possible Pleurx catheter pl acement Currently stable and on room air Assure adequate pain control Cleared for discharge from the pulmonary standpoint This patient was seen independently by the pulmonary nurse practitioner nick olmos pulmonary issues I have personally seen and examined the patient, performed the documentation and the assessment and plan as written. Number of minutes spent on the visit: 24.
[2023-03-13] MEDS: HYDROcodone/APAP 10-325MG 1 EACH TAB PO PRN ×2 (16:47→23:46)
--- NOTE | 2023-03-13 19:16 | P.PN ---
Subjective Patient is a 58-year-old female with a known history of recently diagnosed, left pleural fluid c s/p thoracentesis on 02/24/2023 showed positive for metastatic pulmonary adenocarcinoma, chronic pain with spinal neurostimulator placement and recent myofascial trigger point local anesthesia injection, hypertension, history of migraine headaches, hiatal hernia, osteoarthritis, degenerative disc disease, history of spinal nerve ablation x 2, depression and prior history of smoking and marijuana use presents to ER with complaints of shortness of breath and left-sided chest pain and tightness. Symptoms gets worse when she lays back. Otherwise denies any fever or chills. No nausea or vomiting. Cough without any sputum production. No diarrhea. Chest x-ray showed new moderate left pleural effusion. EKG showed sinus rhythm Laboratory data showed WBC 14.0 hemoglobin 11.4 and platelets 555 Sodium 135 potassium 4.2 chloride 101 bicarb is 29 BUN 17 creatinine 0.51 and blood sugar is 103. AST 19 ALT 15 alk phos 130, troponin x 1 negative Patient was seen by oncology about a week ago and is awaiting final results of pleural fluid. 03/13/2023 Patient with newly diagnosed pulmonary adenocarcinoma on 02/24/2023 normal presents with worsening dyspnea secondary to left pleural effusion status post thoracocentesis and 1550 mL fluid taken out, breathing improved but patient still have significant pain and chest requiring Dilaudid Patient will be monitored for another 24 hours Possible discharge in 24-48 hours Patient encouraged to use Coleman. Dose of narcotics is from 5-10 mg as needed better pain control Pulmonary team recommended cardiothoracic surgery evaluation with Dr. Healy as an outpatient, patient already has his card and contact information, patient will be needed to be evaluated for possible pleurx catheter placement Objective - Vital Signs Vital signs: Vital Signs Temp 99.6 F 03/13/23 11:53 Pulse 85 03/13/23 11:53 Resp 16 03/13/23 11:53 BP 136/77 03/13/23 11:53 Pulse Ox 97 03/13/23 11:53 FiO2 Intake & Output 03/12/23 03/13/23 03/13/23 18:59 06:59 18:59 Weight 68.039 kg Other: Voiding Method Toilet Toilet # Voids 3 - Exam GENERAL: The patient is alert and oriented x3, not in any acute distress. Well developed, well nourished. HEENT: Pupils are round and equally reacting to light. EOMI. No scleral icterus. No conjunctival pallor. Normocephalic, atraumatic. No pharyngeal erythema. No thyromegaly. CARDIOVASCULAR: S1 and S2 present. No murmurs, rubs, or gallops. PULMONARY: Chest is clear to auscultation, no wheezing , no crackles. ABDOMEN: Soft, nontender, nondistended, normoactive bowel sounds. No palpable organomegaly. MUSCULOSKELETAL: No joint swelling or deformity. EXTREMITIES: No cyanosis, clubbing, or pedal edema. NEUROLOGICAL: Gross neurological examination did not reveal any focal deficits. SKIN: No rashes. no petechiae. - Labs CBC & Chem 7: 03/13/23 06:32 03/13/23 06:32 Labs: Abnormal Lab Results - Last 24 Hours (Table) 03/13/23 03/13/23 Range/Units 06:32 06:32 RBC 4.03 L (4.10-5.20) X 10*6/uL Hgb 10.5 L (12.0-15.0) g/dL Hct 33.1 L (37.2-46.3) % MCH 26.1 L (27.0-32.0) pg MCHC 31.7 L (32.0-37.0) g/dL RDW 17.0 H (11.5-14.5) % Plt Count 570 H (140-440) X 10*3/uL Sodium 134 L (137-145) mmol/L Assessment and Plan Assessment: Left-sided chest pain likely secondary to recurrent malignant pleural effusion. Chest x-ray showed moderate-sized pleural effusion. At this post left thoracocentesis on 03/13 Recently diagnosed metastatic pulmonary adenocarcinoma. Status post thoracentesis on 02/24/2023. Fluid analysis positive for malignancy. Metastatic lesions in the posterior vertebral bodies T3 and T4 History of right breast mass. Was on follow-up as an outpatient. Chronic low back pain with history of L4 S1 fusion Chronic pain with spinal stimulator implant at [facility]. Hypertension Depression History of migraine headaches Prior history of smoking Plan: Continue with pain management Pulmonary team cleared the patient for discharge Follow-up with cardiothoracic surgery with Dr. Healy as an outpatient in 1 week and she agrees Patient she will follow up with Dr. Spencer as an outpatient as she has appointment this coming week Continue with DVT prophylaxis subcutaneous heparin GI prophylaxis: Protonix Possible discharge in 24-48 hours
[2023-03-13] MEDS: SENNOSIDES 8.6 MG TAB PO SCH (20:02)
[2023-03-13] MEDS: cloNIDine HCL 0.1 MG TAB PO SCH (20:02)
[2023-03-14] MEDS: HYDROcodone/APAP 10-325MG 1 EACH TAB PO PRN ×2 (06:00→12:07)
[2023-03-14 07:20] VITALS: BP 131/71; PULSE 79; RESP 17; TEMP 97.8
[2023-03-14] MEDS: SENNOSIDES 8.6 MG TAB PO SCH (07:51)
[2023-03-14] MEDS: MULTIVITAMINS, THERA 1 EACH TAB PO SCH (07:51)
[2023-03-14] MEDS: amLODIPine 5 MG TAB PO SCH (07:51)
[2023-03-14] MEDS: HEPARIN SODIUM,PORCINE 5,000 UNIT/ML 1 ML VIAL SQ SCH (07:51)
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
[2023-03-14] MEDS: HYDROmorphone 0.5 MG/0.5 ML SYRINGE IVP PRN (08:41)
--- NOTE | 2023-03-14 11:34 | P.PN ---
Subjective Progress Note Date: 03/14/23 This is a pleasant 58-year-old female with a history of chronic and ongoing tobacco dependence of greater than 40 years, a right breast mass that was going to be worked up in the outpatient setting. During her recent hospitalization she was found to have a left-sided pleural effusion and had undergone a thoracentesis on 02/25/2023. That fluid was sent for metastatic pulmonary adenocarcinoma. There are suspicious lytic lesions noted on T3/T4 as well. She was discharged home on February 26, 2023. She Schuyler presented back to the emergency room today with complaints of increasing shortness of breath and left- sided chest wall pain. Chest x-ray did reveal recurrent left-sided pleural effusion. White count 14.0. Hemoglobin 11.4. Sodium 135. Potassium 4.2. Bicarb 29. BUN 7. Creatinine 0.51. INR 0.9. Troponin negative x 1. She is seen today in consultation on the regular medical floor. She is laying flat in bed. Maintaining O2 saturations in the upper 90s on room air. Comfortable at rest but dyspneic with minimal exertion. The patient is seen today March 13, 2023 in follow-up on the regular medical floor. She is awake and alert in no acute distress. She is maintaining O2 satu rations in the 90s on room air. She is still having ongoing left-sided chest discomfort. She is requesting thoracentesis to be performed today. Ultrasound did reveal a 9.8 cm left pleural effusion. Dr. Alfonso did go ahead and perform the left-sided thoracentesis with 1550 mL of fluid removed. Follow-up chest x- ray revealed no evidence of pneumothorax. White count 9.9. Hemoglobin 10.5. Sodium 134. Potassium 4.7. Bicarb 26. BUN 7. Creatinine 0.56. She remains on heparin for DVT prophylaxis. The patient is seen today March 14, 2023 and follow-up on the regular medical floor. She is sitting up in bed. Awake and alert in no acute distress. She is still having ongoing issues with pain control. She denies any worsening shortness of breath, cough or congestion. She did undergo a left-sided thoracentesis. She is also being evaluated for possible Pleurx catheter. He is currently maintaining good O2 saturations in the 90s on room air. She is afebrile. Hemodynamically stable. Heparin for DVT prophylaxis. Objective - Vital Signs Vital signs: Vital Signs Temp 97.8 F 03/14/23 06:48 Pulse 79 03/14/23 08:40 Resp 17 03/14/23 08:40 BP 131/71 03/14/23 06:48 Pulse Ox 95 03/14/23 06:48 FiO2 Intake & Output 03/13/23 03/14/23 03/14/23 18:59 06:59 18:59 Intake Total 360 Balance 360 Intake: Oral 360 Other: Voiding Method Toilet Toilet Toilet # Voids 5 3 - Exam GENERAL EXAM: Alert, 58-year-old female, on room air, in no apparent distress. HEAD: Normocephalic. EYES: Normal reaction of pupils, equal size. NOSE: Clear with pink turbinates. THROAT: No erythema or exudates. NECK: No masses, no JVD. CHEST: No chest wall deformity. LUNGS: Equal air entry with crackles in left lung base, diminished. CVS: S1 and S2 normal with no audible murmur, regular rhythm. ABDOMEN: No hepatosplenomegaly, normal bowel sounds, no guarding or rigidity. SPINE: No scoliosis or deformity SKIN: No rashes CENTRAL NERVOUS SYSTEM: No focal deficits, tone is normal in all 4 extremities. EXTREMITIES: There is no peripheral edema. No clubbing, no cyanosis. Peripheral pulses are intact. - Labs CBC & Chem 7: 03/13/23 06:32 03/13/23 06:32 Assessment and Plan Assessment: Left-sided chest wall pain secondary to recurrent left-sided pleural effusion. Status post thoracentesis March 13, 2023 with 1550 mL removed Recent diagnosis of metastatic pulmonary adenocarcinoma from thoracentesis on 02/24/2023 Thoracic osseous lesions suspicious for metastatic disease Chronic tobacco dependence of greater than 40 years Right breast mass, being worked up in the outpatient setting History of hypertension History of migraine cephalgia History of chronic back pain status post spine nerve stimulator implanted at [facility] Plan: The patient was seen and evaluated Medications reviewed Left-sided thoracentesis performed yesterday Consult with cardiothoracic surgery for possible Pleurx catheter placement Currently stable and on room air Assure adequate pain control Cleared for discharge from the pulmonary standpoint This patient was seen independently by the pulmonary nurse practitioner addressing pulmonary issues I have personally seen and examined the patient, performed the documentation and the assessment and plan as written. Number of minutes spent on the visit: 22.
--- NOTE | 2023-03-15 00:47 | P.DS ---
Providers Date of admission: 03/12/23 13:09 Attending physician: Shay Vera MD Consults: 03/12/23 13:08 Consult Physician Urgent Consulting Provider: Chuy Alfonso Consult Reason/Comments: pleural effusion, dyspnea, lung cancer Do you want consulting provider notified?: Yes 03/12/23 16:35 Consult Physician Stat Consulting Provider: Jose Guadalupe Vasquez Consult Reason/Comments: pleurex cath Do you want consulting provider notified?: Yes Primary care physician: [facility] Course: Diagnoses: Left-sided chest pain likely secondary to recurrent malignant pleural effusion. Chest x-ray showed moderate-sized pleural effusion. At this post left thoracocentesis on 03/13 Recently diagnosed metastatic pulmonary adenocarcinoma. Status post thoracentesis on 02/24/2023. Fluid analysis positive for malignancy. Metastatic lesions in the posterior vertebral bodies T3 and T4 History of right breast mass. Was on follow-up as an outpatient. Chronic low back pain with history of L4 S1 fusion Chronic pain with spinal stimulator implant at [facility]. Hypertension Depression History of migraine headaches Prior history of smoking Hospital course Patient is a 58-year-old female with a known history of recently diagnosed, left pleural fluid c s/p thoracentesis on 02/24/2023 showed positive for metastatic pulmonary adenocarcinoma, chronic pain with spinal neurostimulator placement and recent myofascial trigger point local anesthesia injection, hypertension, history of migraine headaches, hiatal hernia, osteoarthritis, degenerative disc disease, history of spinal nerve ablation x 2, depression and prior history of smoking and marijuana use presents to ER with complaints of shortness of breath and left-sided chest pain and tightness. Patient was found to have left pleural effusion she underwent thoracocentesis and 1550 mL of fluid taken out. Patient was recently diagnosed with lung cancer. Pulmonary team were following the patient closely and recommended cardiothoracic surgery team evaluated the patient and planned to undergo Pleurx placement on 03/18/[address] Healy patient and family at bedside confirm intention to follow-up. Also patient will follow up with Dr. Spencer upon discharge within one week as instructed. Positive that her pain is controlled, patient denies dyspnea or chest pain. No other complaints and patient is eager to go home today. Patient was cleared for discharge by pulmonary and cardiothoracic surgery team Problems and management plan were discussed with the patient and he verbalized understanding and acceptance Patient was found stable and can be discharged home in guarded prognosis however he needs follow-up as an outpatient. Patient was instructed to follow up with PCP to [facility] within one week and patient agrees Patient was instructed to follow up with Dr. Healy on 03/18/23 and patient agrees for Pleurx catheter placement. Also patient instructed to follow up with Dr. Spencer within one week and she agrees to call and make appointment Physical exam Gen: patient is a AAOx3, no distress CVS: S1-S2, RRR, no murmur Lungs: B/L CTA, no wheezing Abdomen: soft, no distention, no tenderness, positive bowel sounds Extremity: no leg edema or induration Time spent more than 35 minutes Patient Condition at Discharge: Poor Plan - Discharge Summary Discharge Rx Participant: Yes New Discharge Prescriptions: Continue amLODIPine [Norvasc] 5 mg PO DAILY tiZANidine [Zanaflex] 4 mg PO Q8HR PRN PRN Reason: Muscle Spasm Acetaminophen [Tylenol Extra Strength] 1,000 mg PO Q6H PRN PRN Reason: Pain Omeprazole [PriLOSEC] 20 mg PO BID PRN PRN Reason: Indigestion Collagen 6 Gms 12 gm PO DAILY HYDROcodone/APAP 7.5-325MG [Premium 7.5-325] 1 tab PO Q6H PRN 3 Days #12 tab PRN Reason: Pain Ibuprofen [Motrin] 600 mg PO Q6HR PRN PRN Reason: Pain cloNIDine HCL [Catapres] 0.1 - 0.2 mg PO HS Cholecalciferol [Vitamin D3 (125 Mcg = 5000 Iu)] 250 mcg PO DAILY Multivit/Folic Acid/Vit K1 [One-A-Day Women's 50 Plus Tab] 1 tab PO DAILY Magnesium Oxide [Magnesium] 500 mg PO DAILY L.acidoph,Paracasei, B.lactis [Probiotic] 1 cap PO DAILY Sennosides [Senokot] 8.6 mg PO BID PRN #60 tab PRN Reason: Constipation Discharge Medication List amLODIPine [Norvasc] 5 mg PO DAILY 01/22/20 [History] Acetaminophen [Tylenol Extra Strength] 1,000 mg PO Q6H PRN 10/17/21 [History] tiZANidine [Zanaflex] 4 mg PO Q8HR PRN 10/17/21 [History] Ibuprofen [Motrin] 600 mg PO Q6HR PRN 12/24/21 [History] Omeprazole [PriLOSEC] 20 mg PO BID PRN 12/24/21 [History] cloNIDine HCL [Catapres] 0.1 - 0.2 mg PO HS 11/04/22 [History] Cholecalciferol [Vitamin D3 (125 Mcg = 5000 Iu)] 250 mcg PO DAILY 12/29/22 [History] Collagen 6 Gms 12 gm PO DAILY 12/29/22 [History] L.acidoph,Paracasei, B.lactis [Probiotic] 1 cap PO DAILY 12/29/22 [History] Magnesium Oxide [Magnesium] 500 mg PO DAILY 12/29/22 [History] Multivit/Folic Acid/Vit K1 [One-A-Day Women's 50 Plus Tab] 1 tab PO DAILY 12/29/22 [History] Sennosides [Senokot] 8.6 mg PO BID PRN #60 tab 02/26/23 [Rx] HYDROcodone/APAP 7.5-325MG [Premium 7.5-325] 1 tab PO Q6H PRN 3 Days #12 tab 03/14/23 [Rx] Follow up Appointment(s)/Referral(s): Preston Spencer [STAFF PHYSICIAN] - 1 Week Richardson Hernandez DO [Primary Care Provider] - 1-2 days Lucas Healy MD [STAFF PHYSICIAN] - 03/18/23 (Will plan for pleurx catheter placement 03/18/23 afternoon, OR will call the day before to tell you what time to be here. Nothing to eat or drink after midnight 03/18/23) Activity/Diet/Wound Care/Special Instructions: regular diet activity is restricted till you see your doctor Discharge Disposition: HOME SELF-CARE
== END 2023-03-14 12:35 | disposition home or self-care (01) | DRG 181 ==
LOC: EC 10:29 → 5NMEDONC 13:09
PROVIDERS: ADMIT Internal Medicine; ATTEND Internal Medicine
PROC: 0W9B3ZZ Drainage of Left Pleural Cavity, Percutaneous Approach (ICD-10-PCS; principal; 2023-03-13)
DX: C34.92 Malignant neoplasm of unspecified part of left bronchus or lung (principal); C79.51 Secondary malignant neoplasm of bone; J91.0 Malignant pleural effusion; Z87.891 Personal history of nicotine dependence; G43.909 Migraine, unspecified, not intractable, without status migrainosus; N63.10 Unspecified lump in the right breast, unspecified quadrant; K44.9 Diaphragmatic hernia without obstruction or gangrene; M54.2 Cervicalgia; M19.90 Unspecified osteoarthritis, unspecified site; F32.A Depression, unspecified; G89.29 Other chronic pain; Z28.310 Unvaccinated for COVID-19; Z98.1 Arthrodesis status; Z96.82 Presence of neurostimulator; Z96.651 Presence of right artificial knee joint; Z79.899 Other long term (current) drug therapy; Z80.0 Family history of malignant neoplasm of digestive organs; Z82.49 Family history of ischemic heart disease and other diseases of the circulatory system; Z96.641 Presence of right artificial hip joint
CPT/HCPCS: 36415; 71045; 71046; 76604; 80048; 80053; 83605; 83735; 84484; 85025; 85610; 85730; 93005; 94760; 96374; 96376; 99285

== ENCOUNTER 2023-03-18 12:07 | Day surgery (SDC) | payer MEDICARE, OTHER ==
[2023-03-16 09:49] VITALS: BMI 22.8
[2023-03-18] MEDS ORDERED: FAMOTIDINE 20 MG/2 ML VIAL IVP ONE (13:03)
[2023-03-18] MEDS ORDERED: LACTATED RINGERS 1,000 ML IV ONE (13:03)
[2023-03-18 13:35] VITALS: TEMP 97.8
[2023-03-18] MEDS ORDERED: fentaNYL (PF) 50 MCG/ML 2 ML AMP ONE (14:03)
[2023-03-18] MEDS ORDERED: MIDAZOLAM 2 MG/2 ML VIAL ONE (14:03)
[2023-03-18] MEDS ORDERED: PROPOFOL 10 MG/ML 20 ML VIAL IV ONE (14:03)
[2023-03-18] MEDS ORDERED: LIDOCAINE 1% PF 10 MG/ML (5 ML AMP) SQ ONE ×2 (14:33)
--- NOTE | 2023-03-18 14:51 | P.OP ---
Date of Procedure: 03/18/23 Preoperative Diagnosis: Recurrent metastatic left sided pleural effusion Postoperative Diagnosis: Same Procedure(s) Performed: Insertion of left sided pleurX under flouroscopy Implants: Left PleurX Anesthesia: MATIAS Surgeon: Lucas Healy Pathology: none sent Condition: stable Disposition: PACU Indications for Procedure: This patient is a 58 year-old who developed a recurrent left sided pleural effusion. Previous thoracentesis and cytology have been positive for lung cancer. She now requires a pleurX catheter. Operative Findings: 750 dark brown fluid removed from left chest Description of Procedure: The patient was brought back to the operating room and sedated. A time-out was performed and antibiotics were given. Her left chest was prepped and draped in the usual sterile fashion. I then used 1% lidocaine to anesthetize the skin near the costal margin and another area few cm posteriorly. I then made two incisions in these areas. I tunneled the catheter from anterior to posterior and inserted the needle into the chest with good return of serous fluid. Guidewire was inserted and checked with flouroscopy. The peel away sheath was then inserted under flouroscopic vision and catheter tunneled into the chest. One last imagine confirmed placement and it was drained for 750cc. Posterior incision was closed with monocryl and glue and sterile dressing was applied.
[2023-03-18] MEDS ORDERED: HYDROcodone/APAP 7.5-325MG 1 EACH TAB ONE (15:19)
[2023-03-18] MEDS ORDERED: HYDROcodone/APAP 7.5-325MG 1 EACH TAB PO ONE (15:22)
[2023-03-18 15:48] VITALS: BP 154/77; PULSE 77; RESP 16
--- NOTE | 2023-03-18 16:03 | FL ---
EXAMINATION TYPE: FL guidance operating room Intraoperative/procedural fluoroscopic services were pro vided. Total fluoroscopy time is 31.5 seconds with a total of 2 submitted images to PACS. Please see the operative/procedural note for further details. DAP: [id number] mGym2
== END 2023-03-18 16:03 | disposition home health service (06) ==
LOC: OR 12:07
PROVIDERS: ATTEND Thoracic Surgery (Cardiothoracic Vascular Surgery)
DX: J90 Pleural effusion, not elsewhere classified (principal)
CPT/HCPCS: 32555; J2250; J2001; J3010; J3490; J2704

== ENCOUNTER → 2023-03-26 | Outpatient (CLI) | payer MEDICARE, OTHER ==
--- NOTE | 2023-03-26 14:32 | XR ---
EXAMINATION TYPE: XR chest 2V DATE OF EXAM: 03/26/2023 COMPARISON: 03/13/2023 TECHNIQUE: PA and lateral views submitted. HISTORY: Shortness of breath FINDINGS: The lungs are clear and there is no pneumothorax, pleural effusion, or focal pneumonia. Heart size normal and no overt failure. Osseous structures demonstrate hypertrophic and degenerative changes of the spine. Stimulator lead is noted. Left-sided chest tube noted with small left pleural effusion and basilar consolidation. Right lung clear. Increased density along the medial margin of the left upper lobe. This is suspicious for metastases. IMPRESSION: 1. Left lower lobe infiltrate and small effusion with chest tube in position. No sizable pneumothorax . 2. Findings suspicious for left upper lobe medial lung mass similar to prior exam..
== END | disposition home or self-care (01) ==
LOC: RADXRMAIN 13:56
PROVIDERS: ATTEND Thoracic Surgery (Cardiothoracic Vascular Surgery)
DX: J90 Pleural effusion, not elsewhere classified (principal); R91.8 Other nonspecific abnormal finding of lung field
CPT/HCPCS: 71046

== ENCOUNTER → 2023-03-29 | Outpatient (CLI) | payer MEDICARE, OTHER ==
[2023-03-29 13:35] VITALS: BP 124/77; PULSE 85; RESP 16
--- NOTE | 2023-03-29 14:42 | P.PAINPG ---
PQRS Measure Charge Sheet Comment: A 57 yr old female with a history of severe and chronic neck pain x yrs secondary to cervical DDD and spondylosis with facet arthropathy without myelopathy presents today for evaluation s/p BL RFA C4-C6. Pt states she again experienced 80 % pain relief s/p procedure. Pain level is provoked at 9 /10 in intensity, constant, localized in the base of the cervical spine, stabbing in character w shooting towards the BL shoulders and LUE. Pain is provoked by laying on her side. Pain is alleviated with injections in the past, PT x 6 wks in 2020, massage therapy w last visit in Aug 2022 which was ineffective, heat, ice, medications, topical, laying supine, repositioning and rest. Cervical disability score of 21. Interventional pain procedures completed include BL RFA C3-4 & 3rd O.N., NOELLE C6- C7 x1, C7-T1 x1, R Cervical TPIs, BL RFA C4-C6 (Rt Jan 07, Lt Mar 10) Patient is currently on Tyl, Ibu, Voltaren gel Patient denies any side effects of the medication(s), denies excessive drowsiness or sleepiness, denies suicidal ideation and reports that the current pain medication is helping to control the pain and improve activities of daily living. Patient denies any motor or sensory deficits. Patient denies any fever or night sweats, denies any change in the bowel movements or urination. Physical Examination: -Constitutional: Cooperative. Not in acute distress . - Neurologic: Cranial nerve II to XII intact. No focal neurological deficits. - Psychatric: Alert & oriented x 3. Matching mood & appropriate affect. Judgment and insight intact. - Musculoskeletal: Cervical spine: Muscle bulk/ tone/ strength in the bilateral upper extremities normal Vertebral body tenderness to palpation Spurling test positive Distraction test positive Facet loading test positive TTP over BL C4-C5, C5-C6 Thoracic spine Muscle bulk / tone/ strength in the bilateral paraspinal muscles normal Vertebral body tender to palpation over Facet loading test positive TTP Lumbar spine: Motor bulk/ tone/ strength lower extremities , thigh and legs : 5/5 Deep tendon reflexes : Normal Knee Jerk. Normal Ankle Jerk . Vertebral body tenderness to palpation over Lumbar Facet Loading Test positive Straight Leg Raise: positive at 30 degrees right side/ left side Gaenslen's Test positive Sacral spine : Severe tenderness over the Sacroiliac joint: right side / left side Range of motion: Flexion of the lumbar spine <60 degrees Range of motion: Extension of the lumbar spine <20 degrees Gaenslen's Test positive R / L Dalton test: positive right side / left side Thigh Thrust Test positive R / L Sacral Thrust Test positive R/ L Assessment and plan: Chronic neck pain secondary to cervical DDD, spondylosis with facet arthropathy without myelopathy, Stage 4 Lung CA Recommendation of medication management. Percocet 10/325mg #15 NR Use, side effects adverse reactions and safe storage discussed. Discussed avoidance of ETOH while on medication. Pt disinterested in non narcotic medications at this time. All questions answered. I have spent less than 30 minutes on patient care today. Dr Mcdonnell was available by phone for the evaluation of this patient. The time was used to review the medical records including relevant urine studies and Prescription history (MAPs), review of the available imaging, evaluation and examination of the patient, coordination of care with the medical staff and if applicable referring physicians, as well as creation of the medical record PQRS Narrative: Smoking Status Current every day smoker Hx Alcohol Use (MH) Yes Home Medications: Ambulatory Orders amLODIPine [Norvasc] 5 mg PO DAILY 01/22/20 Acetaminophen [Tylenol Extra Strength] 1,000 mg PO Q6H PRN 10/17/21 tiZANidine [Zanaflex] 4 mg PO Q8HR PRN 10/17/21 Ibuprofen [Motrin] 600 mg PO Q6HR PRN 12/24/21 Omeprazole [PriLOSEC] 20 mg PO BID PRN 12/24/21 cloNIDine HCL [Catapres] 0.1 - 0.2 mg PO HS 11/04/22 Cholecalciferol [Vitamin D3 (125 Mcg = 5000 Iu)] 250 mcg PO DAILY 12/29/22 Collagen 6 Gms 12 gm PO DAILY 12/29/22 L.acidoph,Paracasei, B.lactis [Probiotic] 1 cap PO DAILY 12/29/22 Magnesium Oxide [Magnesium] 500 mg PO DAILY 12/29/22 Multivit/Folic Acid/Vit K1 [One-A-Day Women's 50 Plus Tab] 1 tab PO DAILY 12/29/22 polyethylene glycoL 3350 [Miralax] 17 gm PO DAILY 03/16/23 oxyCODONE HCL/ACETAMINOPHEN [Percocet 10-325 mg] 1 tab PO Q4HR PRN 3 Days #15 tab 03/29/23 Controlled Substance Measures - Controlled Substance Measures Is patient prescribed a controlled substance at discharge?: Yes When asked, does pt state using other controlled substances?: No If prescribed controlled substance>3 days was MAPS reviewed?: Prescribed <3 Days
== END ==
LOC: PNWHC3 12:27
PROVIDERS: ATTEND Specialist
DX: M50.321 Other cervical disc degeneration at C4-C5 level (principal); M50.322 Other cervical disc degeneration at C5-C6 level; M47.812 Spondylosis without myelopathy or radiculopathy, cervical region; G89.29 Other chronic pain; C34.12 Malignant neoplasm of upper lobe, left bronchus or lung; I10 Essential (primary) hypertension; M51.36 Other intervertebral disc degeneration, lumbar region; J44.9 Chronic obstructive pulmonary disease, unspecified; F17.200 Nicotine dependence, unspecified, uncomplicated; J91.0 Malignant pleural effusion; D72.829 Elevated white blood cell count, unspecified; K25.9 Gastric ulcer, unspecified as acute or chronic, without hemorrhage or perforation; E78.2 Mixed hyperlipidemia; Z88.8 Allergy status to other drugs, medicaments and biological substances; Z96.82 Presence of neurostimulator; Z79.899 Other long term (current) drug therapy; Z91.048 Other nonmedicinal substance allergy status; Z88.2 Allergy status to sulfonamides; Z88.1 Allergy status to other antibiotic agents
CPT/HCPCS: 99211

== ENCOUNTER 2023-03-31 13:11 | Emergency (ER) | payer MEDICARE, SELFPAY, OTHER ==
[2023-03-31] MEDS: ONDANSETRON 4 MG/2 ML VIAL IVP STA (13:47)
[2023-03-31] MEDS: SODIUM CHLORIDE 0.9% 1,000 ML IV STA (14:20)
[2023-03-31 14:32] LABS: Anisocytosis Slight; Basophils # (A) 0.1 k/uL (0-0.2); Basophils % (A) 1 %; Eosinophils # (A) 0.2 k/uL (0-0.7); Eosinophils % (A) 1 %; HCT 32.1 % (34.0-46.0); HGB 10.1 gm/dL (11.4-16.0); Hypochromasia Slight; Lymphocytes # (A) 3.5 k/uL (1.0-4.8); Lymphocytes % (A) 26 %; MCH 26.7 pg (25.0-35.0); MCHC 31.4 g/dL (31.0-37.0); MCV 84.9 fL (80.0-100.0); Mean Platelet Volume 8.3; Monocytes # (A) 0.7 k/uL (0-1.0); Monocytes % (A) 5 %; Neutrophils # (A) 8.8 k/uL (1.3-7.7); Neutrophils % (A) 65 %; Platelet Count 756 k/uL (150-450); RBC 3.77 m/uL (3.80-5.40); RDW 16.3 % (11.5-15.5); WBC 13.5 k/uL (3.8-10.6)
[2023-03-31 14:36] LABS: ALT 11 U/L (4-34); AST 20 U/L (14-36); African American GFR (CKD) >90 (>60 ml/min/1.73 sqM); Albumin 3.6 g/dL (3.5-5.0); Alkaline Phosphatase 137 U/L (38-126); Anion Gap 9 mmol/L; Blood Urea Nitrogen 10 mg/dL (7-17); Calcium 9.6 mg/dL (8.4-10.2); Carbon Dioxide 26 mmol/L (22-30); Chloride 97 mmol/L (98-107); Glucose 128 mg/dL (74-99); Magnesium 1.7 mg/dL (1.6-2.3); Non-African American GFR(CKD) >90 (>60 ml/min/1.73 sqM); Potassium 3.9 mmol/L (3.5-5.1); Sodium 132 mmol/L (137-145); Total Bilirubin 0.3 mg/dL (0.2-1.3); Total Protein 6.6 g/dL (6.3-8.2)
--- NOTE | 2023-03-31 15:20 | CT ---
EXAMINATION TYPE: CT brain wo con DATE OF EXAM: 03/31/2023 COMPARISON: None available. HISTORY: Headache, syncope and vomiting. CT DLP: 1177.4 mGycm Automated exposure control for dose reduction was used. FINDINGS: There is no acute intracranial hemorrhage, mass, mass effect, midline shift, extra-axial fluid collec tion or hydrocephalus. The canela-white distinction is intact without evidence of an acute major vessel infarct. The visualized paranasal sinuses and mastoid air cells are clear. IMPRESSION: NO ACUTE INTRACRANIAL PROCESS.
[2023-03-31] MEDS: HYDROmorphone 1 MG/ML 1 ML SYRINGE IVP STA (15:22)
[2023-03-31 15:50] VITALS: PULSE 80
--- NOTE | 2023-03-31 16:07 | XR ---
EXAMINATION TYPE: XR chest 2V DATE OF EXAM: 03/31/2023 COMPARISON: NONE HISTORY: Syncopal episode. TECHNIQUE: Frontal and lateral views of the chest are obtained. IMPRESSION: There appears to be a left-sided chest tube or tube overlying the left thoracic wall. There is a smal l left pleural effusion. The lungs otherwise appear clear. There is mild left-sided volume loss. The cardiac silhouette and pulmonary vessels appear to be within normal limits.
[2023-03-31 16:18] LABS: Appearance,Urine Clear (Clear); Bilirubin,Urine Negative (Negative); Blood,Urine Negative (Negative); Color,Urine Colorless; Glucose,Urine (UA) Negative (Negative); Hyaline Casts,Urine 10 /lpf (0-2); Ketones,Urine Negative (Negative); Leukocyte Esterase,Urine Small (Negative); Mucus,Urine Rare /hpf; Nitrite,Urine Negative (Negative); Protein,Urine Negative (Negative); RBC,Urine 1 /hpf (0-5); Specific Gravity,Urine 1.012 (1.001-1.035); Squamous Epithelial Cell,Urine 4 /hpf (0-4); Urobilinogen,Urine <2.0 mg/dL (<2.0); WBC,Urine 2 /hpf (0-5)
[2023-03-31 16:20] VITALS: BP 126/71; RESP 17
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
[2023-03-31 17:16] VITALS: TEMP 98
== END 2023-03-31 16:57 | disposition home or self-care (01) ==
LOC: EC 13:11
DX: R55 Syncope and collapse (principal); R11.10 Vomiting, unspecified; C78.00 Secondary malignant neoplasm of unspecified lung; R51.9 Headache, unspecified; I45.10 Unspecified right bundle-branch block; I10 Essential (primary) hypertension; F12.90 Cannabis use, unspecified, uncomplicated; Z87.891 Personal history of nicotine dependence; Z86.59 Personal history of other mental and behavioral disorders; Z88.2 Allergy status to sulfonamides; Z88.8 Allergy status to other drugs, medicaments and biological substances; Z88.1 Allergy status to other antibiotic agents
CPT/HCPCS: 36415; 93005; 80053; 83605; 83735; 84484; 85025; 81001; 71046; 70450; 99285; 96374; 96375; 96361 ×2; J2405; J1170

== ENCOUNTER 2023-04-01 12:29 | Inpatient (IN) | payer MEDICARE, OTHER ==
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
[2023-04-01] MEDS: SODIUM CHLORIDE 0.9% 1,000 ML IV STA (13:12)
[2023-04-01] MEDS: METOCLOPRAMIDE 5 MG/ML 2 ML VIAL IVP STA (13:12)
[2023-04-01] MEDS: diphenhydrAMINE 50 MG/ML 1 ML VIAL IVP STA (13:19)
[2023-04-01] MEDS: HYDROmorphone 1 MG/ML 1 ML SYRINGE IVP STA ×2 (13:21→14:16)
[2023-04-01] MEDS: SODIUM CHLORIDE 0.9% 1,000 ML IV ONE (13:24)
[2023-04-01 13:27] LABS: Anisocytosis Slight; Basophils % (A) 0 %; Eosinophils # (A) 0.2 k/uL (0-0.7); Eosinophils % (A) 2 %; HCT 31.2 % (34.0-46.0); HGB 9.7 gm/dL (11.4-16.0); Hypochromasia Slight; Lymphocytes # (A) 1.3 k/uL (1.0-4.8); Lymphocytes % (A) 11 %; MCH 26.3 pg (25.0-35.0); MCV 84.7 fL (80.0-100.0); Mean Platelet Volume 7.7; Monocytes # (A) 0.5 k/uL (0-1.0); Monocytes % (A) 4 %; Neutrophils # (A) 9.8 k/uL (1.3-7.7); Neutrophils % (A) 82 %; Platelet Count 752 k/uL (150-450); RBC 3.68 m/uL (3.80-5.40); RDW 16.2 % (11.5-15.5); WBC 11.9 k/uL (3.8-10.6)
[2023-04-01 13:35] LABS: Prothrombin Time 10.9 sec (10.0-12.5)
[2023-04-01 13:42] LABS: ALT 10 U/L (4-34); AST 21 U/L (14-36); African American GFR (CKD) >90 (>60 ml/min/1.73 sqM); Albumin 3.3 g/dL (3.5-5.0); Alkaline Phosphatase 126 U/L (38-126); Amylase 50 U/L (30-110); Anion Gap 7 mmol/L; Blood Urea Nitrogen 10 mg/dL (7-17); Calcium 9.4 mg/dL (8.4-10.2); Carbon Dioxide 26 mmol/L (22-30); Chloride 98 mmol/L (98-107); Glucose 116 mg/dL (74-99); Magnesium 1.9 mg/dL (1.6-2.3); Non-African American GFR(CKD) >90 (>60 ml/min/1.73 sqM); Potassium 4.2 mmol/L (3.5-5.1); Sodium 131 mmol/L (137-145); Total Bilirubin 0.4 mg/dL (0.2-1.3); Total Protein 6.3 g/dL (6.3-8.2)
--- NOTE | 2023-04-01 14:47 | XR ---
EXAMINATION TYPE: XR ribs RT w pa chest xray DATE OF EXAM: 04/01/2023 1:44 PM CLINICAL INDICATION:Female, 58 years old with history of cough, right rib pain; [facility] COMPARISON: None TECHNIQUE: XR ribs RT w pa chest xray; Frontal and oblique views of the ribs with frontal chest radio graph. FINDINGS: Nerve stimulator device leads project over the spine. Cortical irregularity involving the right 11th rib seen on one view. The remainder of the ribs are intact. No evidence for displaced fracture. Left thoracotomy tube with tip in the superior left lung. No evidence of pneumothorax. No left-sided rib f ractures definitively visualized. IMPRESSION: 1. Right 11th rib cortical defect suggestive of fracture correlate with point tenderness. 2. Left thoracotomy tube with tip in appropriate position.
--- NOTE | 2023-04-01 14:50 | XR ---
EXAMINATION TYPE: XR KUB DATE OF EXAM: 04/01/2023 1:44 PM CLINICAL INDICATION:Female, 58 years old with history of vomiting; [facility] COMPARISON: Same day chest radiograph. TECHNIQUE: One radiographic view of the abdomen was obtained. FINDINGS: Left thoracotomy tube present. No pneumothorax visualized. No stimulator device with leads exiting the superior [id number] projecting over the spine. Fixation hardware of the lower lumbar s pine appears intact. Bilateral hip arthroplasty changes appears intact. Small left pleural effusion. The bowel gas pattern is nonspecific without dilated loops of small or large bowel. There is no evide nce for organomegaly or pneumoperitoneum. The osseous structures are intact. No abnormal calcificat ions are present. Fecal material and gas are demonstrated throughout the colon and rectum. IMPRESSION: 1. No evidence for bowel obstruction. Nonspecific bowel gas pattern without radiographic evidence fo r acute process. 2. Bilateral hip arthroplasties and fixation hardware intact. 3. Left thoracotomy tube visualized. No evidence for pneumothorax. Small left pleural effusion.
[2023-04-01] MEDS ORDERED: NALOXONE 0.4 MG/ML 1 ML VIAL IV PRN (15:08)
[2023-04-01] MEDS: HYDROmorphone 1 MG/ML 1 ML SYRINGE IVP PRN (16:49)
[2023-04-01] MEDS: SODIUM CHLORIDE 0.9% 1,000 ML IV SCH (16:51)
[2023-04-01] MEDS: MORPHINE SULFATE ER 15 MG TABLET PO SCH (20:18)
[2023-04-01] MEDS: ONDANSETRON 4 MG/2 ML VIAL IVP PRN (20:19)
[2023-04-01] MEDS: tiZANidine 4 MG TAB PO PRN (21:24)
[2023-04-01] MEDS: ZOLPIDEM 5 MG TAB PO PRN (21:26)
[2023-04-01] MEDS: DEXAMETHASONE SOD PHOSPHATE 4 MG/ML 1 ML VIAL IVP SCH (21:27)
[2023-04-01] MEDS: IBUPROFEN 800 MG TAB PO SCH (21:27)
[2023-04-01] MEDS: cloNIDine HCL 0.1 MG TAB PO SCH (21:29)
[2023-04-02] MEDS ORDERED: HYDROmorphone 0.5 MG/0.5 ML SYRINGE IVP PRN (00:02)
[2023-04-02 11:10] LABS: Basophils # (A) 0.04 X 10*3/uL (0.00-0.10); Basophils % (A) 0.4 %; Eosinophils # (A) 0.49 X 10*3/uL (0.04-0.35); HCT 31.6 % (37.2-46.3); HGB 9.8 g/dL (12.0-15.0); Lymphocytes # (A) 0.93 X 10*3/uL (0.90-5.00); Lymphocytes % (A) 9.6 %; MCH 26.7 pg (27.0-32.0); MCV 86.1 FL (80.0-97.0); Mean Platelet Volume 9.9 FL (9.5-12.2); Monocytes # (A) 0.29 X 10*3/uL (0.20-1.00); NRBC Per 100 WBC 0 X 10*3/uL (0.00-0.01); Neutrophils # (A) 7.91 X 10*3/uL (1.80-7.70); Neutrophils % (A) 81.5 %; Platelet Count 711 X 10*3/uL (140-440); RBC 3.67 X 10*6/uL (4.10-5.20); RDW 17.2 % (11.5-14.5); WBC 9.71 X 10*3/uL (4.50-10.00)
[2023-04-02 11:27] LABS: Blood Urea Nitrogen 4.9 mg/dL (9.0-27.0); Calcium 9.7 mg/dL (8.7-10.3); Carbon Dioxide 27.1 mmol/L (21.6-31.8); Chloride 99 mmol/L (96-109); Glucose 125 mg/dL (70-110); Potassium 4.4 mmol/L (3.5-5.5); Sodium 137 mmol/L (135-145)
--- NOTE | 2023-04-02 12:18 | P.HPIM ---
History of Present Illness H&P Date: 04/02/23 Chief Complaint: Nausea vomiting dizziness This is a 58-year-old female with past medical history significant for recent diagnosis of metastatic pulmonary adenocarcinoma from thoracentesis on 02/24/2023, presented to the ER with nausea vomiting, left jaw pain. Patient reports on Wednesday she met with Dr. Spencer, discussed plan regarding her newly diagnosed CA. Proceeded Wednesday to [facility] for mapping when she developed increased dizziness, diaphoresis, nausea and vomiting and was unable to complete the visit. Proceeded home, symptoms worsened and she came to the ER. Reports right-sided chest wall pain. X-ray of right ribs report right 11th rib cortical defect suggestive of fracture, left thoracotomy tube with tip in appropriate position. denies chest pain, palpitations or increase in shortness of breath. KUB reported no evidence of bowel obstruction, nonspecific bowel gas pattern, bilateral hip arthroplasties, left thoracotomy tube visualized, no evidence of pneumothorax, small left pleural effusion .steroids and morphine initiated for increased pain relief. Oncology on consult. Afebrile, normal WBC, hemoglobin 9.8, platelets 711. Sodium 137, potassium 4.4, bicarb 27, BUN 4.9, creatinine 0.5, troponins negative x 3, magnesium 1.9, LFTs within normal limits. Review of Systems ROS Statement: Those systems with pertinent positive or pertinent negative responses have been documented in the HPI. ROS Other: All systems not noted in ROS Statement are negative. Past Medical History Past Medical History: Cancer, Hypertension, Osteoarthritis (OA) Additional Past Medical History / Comment(s): Recent left lung cancer dx Feb 22, 2023,recent right breast mass, Hx migraines, bruises easily, hx hiatal hernia (healed on its own), arthritits with DDD, Total left hip surgery (nov 2022)., starting physical therapy. seen in for severe neck pain, passed out after hip surgery in Nov 2022 SOB with ambulation. right rib fracture. 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 , total left hip (nov 2022), unbilical hernia repair. Past Anesthesia/Blood Transfusion Reactions: Previous Problems w/ Anesthesia Additional Past Anesthesia/Blood Transfusion Reaction / Comment(s): Had very low heart rate after 1st knee surgery- pt thinks possibly due to fentanyl Past Psychological History: Depression Additional Psychological History / Comment(s): . Smoking Status: Former smoker Past Alcohol Use History: Daily, Occasional Additional Past Alcohol Use History / Comment(s): Smoked about 1ppd- quit about 1 month ago. Drinks a couple beers a week, one a night at most. Past Drug Use History: Marijuana Additional Drug Use History / Comment(s): uses edible Marijuana daily for pain. - Past Family History Mother Family Medical History: Cancer Additional Family Medical History / Comment(s): Colon and lung cancer. Father Family Medical History: Coronary Artery Disease (CAD) Additional Family Medical History / Comment(s): Legionnaires. Paternal grandmother breast and lung cancer. Brother(s) Additional Family Medical History / Comment(s): Patient has 3 brothers. One brother has history of schizophrenia and bipolar and lives in [place] and is estranged from the family. One brother has history of neck fracture. One brother is healthy with no major medical problems. Patient does not have any sisters. She has 2 sons that are healthy. Medications and Allergies Home Medications Medication Instructions Recorded Confirmed Type amLODIPine [Norvasc] 5 mg PO DAILY 01/22/20 04/01/23 History tiZANidine [Zanaflex] 4 mg PO Q8HR PRN 10/17/21 04/01/23 History Omeprazole [PriLOSEC] 20 mg PO BID 12/24/21 04/01/23 History cloNIDine HCL [Catapres] 0.1 mg PO HS 11/04/22 04/01/23 History polyethylene glycoL 3350 [Miralax] 17 gm PO DAILY 03/16/23 04/01/23 History oxyCODONE HCL/ACETAMINOPHEN 1 tab PO Q4HR PRN 3 Days #15 tab 03/29/23 04/01/23 Rx [Percocet 10-325 mg] Folic Acid 1 mg PO DAILY 04/01/23 04/01/23 History HYDROcodone/APAP 5-325MG [[place] 1 tab PO Q6HR PRN 04/01/23 04/01/23 History 5-325] Ondansetron [Zofran] 4 mg PO Q4H PRN 04/01/23 04/01/23 History Allergies Allergy/AdvReac Type Severity Reaction Status Date / Time adhesive tape AdvReac red raw Verified 04/01/23 14:21 skin, bandages cyclobenzaprine HCl AdvReac MOUTH SORES Verified 04/01/23 14:21 [From Flexeril] fentanyl AdvReac "Feels Verified 04/01/23 14:21 Drunk" Uthinbt-MBM-OhO Reductase AdvReac MUSCLE Verified 04/01/23 14:21 Inhibitor CRAMPS sulfamethoxazole AdvReac MUSCLE Verified 04/01/23 14:21 [From Bactrim] ACHES, THRUSH, YEAST INFECTION trimethoprim [From Bactrim] AdvReac MUSCLE Verified 04/01/23 14:21 ACHES, THRUSH, YEAST INFECTION muscle relaxants AdvReac "feels Uncoded 04/01/23 14:21 drunk" Physical Exam Vitals: Vital Signs Temp Pulse Pulse Resp BP BP BP 04/02/23 08:23 97 18 174/82 04/02/23 08:21 85 16 04/02/23 07:34 98.6 F 86 16 149/67 04/02/23 03:45 78 18 04/01/23 20:00 75 18 145/73 04/01/23 18:23 98.8 F 83 20 150/74 04/01/23 16:54 87 20 128/69 04/01/23 15:32 147/75 150/79 04/01/23 13:26 68 22 136/69 04/01/23 12:35 98.8 F 58 L 20 107/64 BP BP Pulse Ox 04/02/23 08:23 94 L 04/02/23 08:21 169/77 94 L 04/02/23 07:34 95 04/02/23 03:45 122/66 94 L 04/01/23 20:00 96 04/01/23 18:23 96 04/01/23 16:54 95 04/01/23 15:32 129/75 04/01/23 13:26 94 L 04/01/23 12:35 96 Intake and Output 04/01/23 04/02/23 04/02/23 22:59 06:59 14:59 Other: Voiding Method Toilet Toilet # Voids 2 2 1 PHYSICAL EXAM: VITAL SIGNS: [As above] GENERAL: Sitting up on stretcher, alert and oriented x 3, no acute distress HEENT: Normocephalic, conjunctivae normal. eyes normal. NECK: Supple, no JVD. CARDIOVASCULAR: S1, S2 regular.No murmur RESPIRATION: Unlabored, equal air entry ,breath sounds diminished in the bases. Left Pleurx cath. ABDOMEN: Soft, nondistended, nontender . No guarding. LEGS: No edema. no swelling PSYCHIATRY: Alert and oriented X3, mood and affect normal. NERVOUS SYSTEM: Cranial N 2-12 grossly normal. No focal deficits. Strength and sensation grossly intact. Skin: Warm and dry, no rash Results CBC & Chem 7: 04/02/23 07:30 04/02/23 07:30 Labs: Abnormal Lab Results - Last 24 Hours (Table) 04/01/23 04/01/23 04/02/23 Range/Units 13:18 13:18 07:30 WBC 11.9 H (3.8-10.6) k/uL RBC 3.68 L 3.67 L (3.80-5.40) m/uL Hgb 9.7 L 9.8 L (11.4-16.0) gm/dL Hct 31.2 L 31.6 L (34.0-46.0) % MCH 26.7 L (27.0-32.0) pg MCHC 31.0 L (32.0-37.0) g/dL RDW 16.2 H 17.2 H (11.5-15.5) % Plt Count 752 H 711 H (150-450) k/uL Immature Gran # 0.05 H (0.00-0.04) X 10*3/uL Neutrophils # 9.8 H 7.91 H (1.3-7.7) k/uL Eosinophils # 0.49 H (0.04-0.35) X 10*3/uL Sodium 131 L (137-145) mmol/L BUN (9.0-27.0) mg/dL Creatinine 0.47 L (0.52-1.04) mg/dL BUN/Creatinine Ratio (12.00-20.00) Ratio Glucose 116 H (74-99) mg/dL Albumin 3.3 L (3.5-5.0) g/dL 04/02/23 Range/Units 07:30 WBC (3.8-10.6) k/uL RBC (3.80-5.40) m/uL Hgb (11.4-16.0) gm/dL Hct (34.0-46.0) % MCH (27.0-32.0) pg MCHC (32.0-37.0) g/dL RDW (11.5-15.5) % Plt Count (150-450) k/uL Immature Gran # (0.00-0.04) X 10*3/uL Neutrophils # (1.3-7.7) k/uL Eosinophils # (0.04-0.35) X 10*3/uL Sodium (137-145) mmol/L BUN 4.9 L (9.0-27.0) mg/dL Creatinine 0.5 L (0.52-1.04) mg/dL BUN/Creatinine Ratio 9.80 L (12.00-20.00) Ratio Glucose 125 H (74-99) mg/dL Albumin (3.5-5.0) g/dL Thrombosis Risk Factor Assmnt - Choose All That Apply Any of the Below Risk Factors Present?: Yes Each Factor Represents 1 point: Age 41-60 years, Medical pt on bed rest, Serious lung disease incl. pneumonia (< 1month) Other Risk Factors: Yes Each Risk Factor Represents 2 Points: Malignancy Thrombosis Risk Factor Assessment Total Risk Factor Score: 5 Thrombosis Risk Factor Assessment Level: High Risk Assessment and Plan Assessment: Recently diagnosed metastatic pulmonary adenocarcinoma( from thoracentesis on 02/24/2023), with rib fracture, nausea, vomiting, jaw pain Prior radiology studies reporting thoracic osseous lesions suspicious for metastatic disease, left pleural vax catheter in a patient with history of recurrent left-sided pleural effusion. Chronic tobacco dependence of greater than 40 years Right breast mass, being worked up in the outpatient setting History of hypertension History of migraine cephalgia Chronic back pain status post spine nerve stimulator implanted at [facility] Plan: Continue on current medication regimen ,monitoring and symptomatic treatment. IV fluid hydration. Antiemetics pain managementdexamethasone and morphine ordered. Oncology consult in place, recommendations pending. PPI ordered for GI prophylaxis. The impression and plan of care has been dictated as directed. : I performed a history and examination of this patient, discussed the same with the dictator. I agree with the dictator's note ,documented as a scribe. Any additional findings or plans will be noted.
[2023-04-02] MEDS: PANTOPRAZOLE 40 MG/10 ML VIAL IVP SCH (13:22)
--- NOTE | 2023-04-02 19:54 | P.CONS ---
History of Present Illness - Reason for Consult Consult date: 04/02/23 lung cancer Requesting physician: Anmol Chavez - Chief Complaint n/v, intractable pain - History of Present Illness Patient is a 58-year-old female with a significant history of recently diagnosed stage IV metastatic pulmonary adenocarcinoma. She was initially referred to Dr. Spencer in 2012, after WBC was mildly elevated in 09/2011 to have a mildly elevated WBC. She had a tooth infection at the time. She had antibiotics and subsequently tooth extrction followed by an implant. Since the beginning on 2012, she has had recurrent URI type episodes and has received courses of antibiotics for the same, including Cipro for 7 days , just prior to her initial visit here. Her w/u had revealed the possibility of a Coxsackie infection. Her WBC has remained elevated, however, with some fluctuations. It was 11.6 on 07/26/12, and 18.6 on 09/02/12. She has no h/o blood problems in the past, other than blood transfusions with back surgeries. Her paternal grandfather had a h/o AML and mother had a hx of lung cancer. On evaluation, it appeared that this was a mild reactive phenomenon, related likely to smoking. Additional w/u was ordered. Labs were negative for BCR-Abl mutation, decreased immunoglobulins or iron deficiency. Her HIV test was equivocal, most likely negative. Her CBC was stable with WBC in the 15-16 range. She was reassured that her mild leucocytosis is likely reactive, due to smoking and URI's. Patient was seen on consult on 02/23/23 after presenting with complaints of upper back pain. Upon admission chest x-ray revealed COPD with mild emphysema. Small left pleural effusion with adjacent atelectasis and/or consolidation. CT chest negative for PE. A 2.3 x 1.6 cm soft tissue density in the right superolateral breast. 5.2 x 2.9 cm soft tissue density along the superomedial left lung with portions involving both the lung and extending directly into the mediastinum. Lesser soft tissue thickening extending and contiguity with the mass, along the pleural anteriorly and posteriorly to the lung apex. Moderate size left pleural effusion. Multiple sm all areas of nodular plaque-like thickening along the left oblique fissure. Right hilar region adenopathy up to 2 x 1.5 cm. Small rounded lucent lesions in the posterior vertebral bodies at T3 and T4. Right upper quadrant breast mass, subsequently found to be benign on inpatient ultrasound, and follow-up outpatient mammogram. The patient's cytology from the pleural fluid was positive for metastatic pulmonary adenocarcinoma. This confirmed stage IV disease. Patient's additional staging studies did not show any obvious disease in the abdomen and pelvis, brain, or in the bones. The CT of the chest had raised the possibility of thoracic vertebral involvement at T4/T5. However these areas were negative on bone scan. We discussed that there is a possibility that she could have purely lytic lesions, that are negative on bone scan. However these would be uncharacteristic of for type of malignancy, although not totally ruled out. She was referred to radiation oncology for evaluation, but has been unable to undergo simulation due to repeat hospitalizations. Biomarker testing was ordered and was found that IO treatment alone would not be effective and was recommended treatment with c arboplatin/Alimta/ICI. Chemo teach has been completed, awaiting final insurance prior auth Patient represented to emergency room with complaints of left jaw and ear pain. Patient reports she will begin to have left-sided jaw and ear pain that radiates into the chest and then experiences nausea and vomiting and feels faint. Of note patient was seen for the same the day prior in the ER and was subsequently discharged home. Abdominal x-ray revealed no evidence for bowel obstruction with nonspecific bowel gas pattern with no evidence of acute process. Right rib x-rays with PA chest revealed right 11th rib cortical defect suggestive of fracture. Patient is reporting improvement in pain at today's visit with pain medications. She is sitting up in bed eating. Denies nausea vomiting. Serial troponins negative. Review of Systems 10 point ROS is negative except as stated in the HPI Past Medical History Past Medical History: Cancer, Hypertension, Osteoarthritis (OA) Additional Past Medical History / Comment(s): Recent left lung cancer dx Feb 22, 2023,recent right breast mass, Hx migraines, bruises easily, hx hiatal hernia (healed on its own), arthritits with DDD, Total left hip surgery (nov 2022)., starting physical therapy. seen Tamar Perea in for severe neck pain, passed out after hip surgery in Nov 2022 SOB with ambulation. right rib fracture. 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 , total left hip (nov 2022), unbilical hernia repair. Past Anesthesia/Blood Transfusion Reactions: Previous Problems w/ Anesthesia Additional Past Anesthesia/Blood Transfusion Reaction / Comm: Had very low heart rate after 1st knee surgery- pt thinks possibly due to fentanyl Smoking Status: Former smoker - Past Family History Mother Family Medical History: Cancer Additional Family Medical History / Comment(s): Colon and lung cancer. Father Family Medical History: Coronary Artery Disease (CAD) Additional Family Medical History / Comment(s): Legionnaires. Paternal grandmother breast and lung cancer. Brother(s) Additional Family Medical History / Comment(s): Patient has 3 brothers. One brother has history of schizophrenia and bipolar and lives in [place] and is estranged from the family. One brother has history of neck fracture. One brother is healthy with no major medical problems. Patient does not have any s isters. She has 2 sons that are healthy. Medications and Allergies Home Medications Medication Instructions Recorded Confirmed Type amLODIPine [Norvasc] 5 mg PO DAILY 01/22/20 04/01/23 History tiZANidine [Zanaflex] 4 mg PO Q8HR PRN 10/17/21 04/01/23 History Omeprazole [PriLOSEC] 20 mg PO BID 12/24/21 04/01/23 History cloNIDine HCL [Catapres] 0.1 mg PO HS 11/04/22 04/01/23 History polyethylene glycoL 3350 [Miralax] 17 gm PO DAILY 03/16/23 04/01/23 History oxyCODONE HCL/ACETAMINOPHEN 1 tab PO Q4HR PRN 3 Days #15 tab 03/29/23 04/01/23 Rx [Percocet 10-325 mg] Folic Acid 1 mg PO DAILY 04/01/23 04/01/23 History HYDROcodone/APAP 5-325MG [[place] 1 tab PO Q6HR PRN 04/01/23 04/01/23 History 5-325] Ondansetron [Zofran] 4 mg PO Q4H PRN 04/01/23 04/01/23 History Allergies Allergy/AdvReac Type Severity Reaction Status Date / Time adhesive tape AdvReac red raw Verified 04/01/23 14:21 skin, bandages cyclobenzaprine HCl AdvReac MOUTH SORES Verified 04/01/23 14:21 [From Flexeril] fentanyl AdvReac "Feels Verified 04/01/23 14:21 Drunk" Whponod-YOK-AwK Reductase AdvReac MUSCLE Verified 04/01/23 14:21 Inhibitor CRAMPS sulfamethoxazole AdvReac MUSCLE Verified 04/01/23 14:21 [From Bactrim] ACHES, THRUSH, YEAST INFECTION trimethoprim [From Bactrim] AdvReac MUSCLE Verified 04/01/23 14:21 ACHES, THRUSH, YEAST INFECTION muscle relaxants AdvReac "feels Uncoded 04/01/23 14:21 drunk" Physical Exam Vitals: Vital Signs Temp Pulse Pulse Resp BP BP BP 04/02/23 13:38 99.1 F 74 16 04/02/23 13:17 136/75 04/02/23 08:23 97 18 174/82 04/02/23 08:21 85 16 04/02/23 07:34 98.6 F 86 16 149/67 04/02/23 03:45 78 18 04/01/23 20:00 75 18 145/73 04/01/23 18:23 98.8 F 83 20 150/74 04/01/23 16:54 87 20 128/69 04/01/23 15:32 147/75 150/79 BP BP Pulse Ox 04/02/23 13:38 168/87 96 04/02/23 13:17 04/02/23 08:23 94 L 04/02/23 08:21 169/77 94 L 04/02/23 07:34 95 04/02/23 03:45 122/66 94 L 04/01/23 20:00 96 04/01/23 18:23 96 04/01/23 16:54 95 04/01/23 15:32 129/75 Intake and Output 02/15/24 02/16/24 02/16/24 22:59 06:59 14:59 Other: Voiding Method Toilet Toilet # Voids 2 2 1 Weight 145 kg - Constitutional General appearance: no acute distress - EENT Eyes: anicteric sclerae, EOMI ENT: hearing grossly normal - Respiratory pleurx catheter in place Respiratory: left: diminished (diminished LLL, but improved) - Cardiovascular Rhythm: regular Heart sounds: normal: S1, S2 - Gastrointestinal General gastrointestinal: soft, no tenderness - Integumentary Integumentary: no cyanotic - Neurologic Neurologic: CNII-XII intact - Musculoskeletal Musculoskeletal: strength equal bilaterally - Psychiatric Psychiatric: A&O x's 3 Results CBC & Chem 7: 04/02/23 07:30 04/02/23 07:30 Labs: Abnormal Lab Results - Last 24 Hours (Table) 04/02/23 04/02/23 Range/Units 07:30 07:30 RBC 3.67 L (4.10-5.20) X 10*6/uL Hgb 9.8 L (12.0-15.0) g/dL Hct 31.6 L (37.2-46.3) % MCH 26.7 L (27.0-32.0) pg MCHC 31.0 L (32.0-37.0) g/dL RDW 17.2 H (11.5-14.5) % Plt Count 711 H (140-440) X 10*3/uL Immature Gran # 0.05 H (0.00-0.04) X 10*3/uL Neutrophils # 7.91 H (1.80-7.70) X 10*3/uL Eosinophils # 0.49 H (0.04-0.35) X 10*3/uL BUN 4.9 L (9.0-27.0) mg/dL Creatinine 0.5 L (0.6-1.5) mg/dL BUN/Creatinine Ratio 9.80 L (12.00-20.00) Ratio Glucose 125 H (70-110) mg/dL Comments: rib xray and KUB xray reviewed Assessment and Plan (1) Lung cancer Current Visit: Yes Status: Acute Priority: High Code(s): C34.90 - MALIGNANT NEOPLASM OF UNSP PART OF UNSP BRONCHUS OR LUNG SNOMED Code(s): 223778621 (2) Rib fracture Current Visit: Yes Status: Acute Priority: Medium Code(s): S22.39XA - FRACTURE OF ONE RIB, UNSP SIDE, INIT FOR CLOS FX SNOMED Code(s): 73533012 (3) Vomiting Current Visit: Yes Status: Acute Priority: High Code(s): R11.10 - VOMITING, UNSPECIFIED SNOMED Code(s): 252731119 Plan: Metastatic lung adenocarcinoma: -Full history in HPI -Recently diagnosed stage IV metastatic pulmonary adenocarcinoma. Patient's additional staging studies did not show any obvious disease in the abdomen and pelvis, brain, or in the bones. The CT of the chest had raised the possibility of thoracic vertebral involvement at T4/T5. However these areas were negative on bone scan. She was referred to radiation oncology for evaluation, but has been unable to undergo simulation due to repeat hospitalizations. Biomarker testing was ordered and was found that IO treatment alone would not be effective and was recommended treatment with carboplatin/Alimta/keytruda. Chemo teach has been completed, awaiting final insurance prior auth -Pleurx drain in place, with no outpt at last attempt on 03/26/23, was instructed to reattempt today, and if outpt continues to be minimal, CTS will plan to remove drain. Pt was unale to drain at home, due to acute sx/admission. Will consult CTS for further management - Spoke with Dr. Couch regarding case, will evaluate to see if simulation can be completed will inpt - Will plan to schedule treatment once acutely recovers. Clinic f/u will be scheduled upon discharge. Pain will need to be better managed, pt has been referred to pain management for second opinion due to acute on chronic pain and complexities of managing, due to significant hx of spinal stimulator, trigger point injections and previous opiate dependence. Doctor attests: I performed a history and physical examination of this patient, developed impression and plan of care. Discussed with dictator. I agree with dictators note, documented as a scribe.
[2023-04-02] MEDS: METOCLOPRAMIDE 5 MG/ML 2 ML VIAL IVP PRN (22:22)
--- NOTE | 2023-04-03 10:46 | P.PN ---
Progress Note - Text Progress Note Date: 04/03/23 This is a 58-year-old female patient with a history of recently diagnosed metastatic pulmonary adenocarcinoma with recurrent left-sided pleural effusions who Dr. Healy placed a left-sided Pleurx catheter and March 18, 2023. She presented to [facility] emergency room this admission with complaints of nausea, vomiting, diarrhea, and significant pain. She was admitted for evaluation and treatment. Consultation was placed to cardiothoracic surgery for drainage of Pleurx catheter. Chest x-ray reviewed, there is not a significant amount of effusion on the left side, patient's respiratory status is stable, she remains on room air with oxygen saturation in the mid 90s. Her last drainage attempt was a week ago with minimal drainage at that time. We did attempt Pleurx catheter drainage today with less than 5 cc output. No further need for drainage at this point. Management of other comorbidities per internal medicine, oncology. Will see again as needed, patient does have our contact information.
[2023-04-03] MEDS: amLODIPine 5 MG TAB PO SCH (17:18)
[2023-04-03] MEDS: hydrALAZINE HCL 20 MG/ML 1 ML VIAL IVP PRN (19:10)
--- NOTE | 2023-04-03 21:44 | P.PN ---
Subjective Progress Note Date: 04/03/23 58-year-old female with past medical history significant for recent diagnosis of metastatic pulmonary adenocarcinoma from thoracentesis on 02/24/2023, presented to the ER with nausea vomiting, left jaw pain. Patient reports on Wednesday she met with Dr. Spencer, discussed plan regarding her newly diagnosed CA. Proceeded Wednesday to [facility] for mapping when she developed increased dizziness, diaphoresis, nausea and vomiting and was unable to complete the visit. Proceeded home, symptoms worsened and she came to the ER. Reports right-sided chest wall pain. X-ray of right ribs report right 11th rib cortical defect suggestive of fracture, left thoracotomy tube with tip in appropriate position. denies chest pain, palpitations or increase in shortness of breath. KUB reported no evidence of bowel obstruction, nonspecific bowel gas pattern, bilateral hip arthroplasties, left thoracotomy tube visualized, no evidence of pneumothorax, small left pleural effusion .steroids and morphine initiated for increased pain relief. Oncology on consult. Afebrile, normal WBC, hemoglobin 9.8, platelets 711. Sodium 137, potassium 4.4, bicarb 27, BUN 4.9, creatinine 0.5, troponins negative x 3, magnesium 1.9, LFTs within normal limits. Objective - Vital Signs Vital signs: Vital Signs Temp 97.2 F L 04/03/23 12:36 Pulse 61 04/03/23 12:36 Resp 20 04/03/23 12:36 BP 173/80 04/03/23 12:36 Pulse Ox 98 04/03/23 12:36 FiO2 Intake & Output 04/02/23 04/03/23 04/03/23 18:59 06:59 18:59 Weight 145 kg Other: Voiding Method Toilet Toilet Toilet # Voids 1 1 - Exam GENERAL: Sitting up on stretcher, alert and oriented x 3, no acute distress HEENT: Normocephalic, conjunctivae normal. eyes normal. NECK: Supple, no JVD. CARDIOVASCULAR: S1, S2 regular.No murmur RESPIRATION: Unlabored, equal air entry ,breath sounds diminished in the bases. Left Pleurx cath. ABDOMEN: Soft, nondistended, nontender . No guarding. LEGS: No edema. no swelling PSYCHIATRY: Alert and oriented X3, mood and affect normal. NERVOUS SYSTEM: Cranial N 2-12 grossly normal. No focal deficits. Strength and sensation grossly intact. Skin: Warm and dry, no rash - Labs CBC & Chem 7: 04/02/23 07:30 04/02/23 07:30 Assessment and Plan Assessment: Recently diagnosed metastatic pulmonary adenocarcinoma( from thoracentesis on 02/24/2023), with rib fracture, nausea, vomiting, jaw pain Prior radiology studies reporting thoracic osseous lesions suspicious for metastatic disease, left pleural vax catheter in a patient with history of recurrent left-sided pleural effusion. Chronic tobacco dependence of greater than 40 years Right breast mass, being worked up in the outpatient setting History of hypertension History of migraine cephalgia Chronic back pain status post spine nerve stimulator implanted at [facility] Plan: Continue on current medication regimen ,monitoring and symptomatic treatment. IV fluid hydration. Antiemetics pain managementdexamethasone and morphine ordered. Oncology consult in place, recommendations pending. PPI ordered for GI prophylaxis.
[2023-04-04 10:01] LABS: Basophils # (A) 0.02 X 10*3/uL (0.00-0.10); Basophils % (A) 0.2 %; Eosinophils # (A) 0.01 X 10*3/uL (0.04-0.35); Eosinophils % (A) 0.1 %; HCT 29.6 % (37.2-46.3); HGB 9.5 g/dL (12.0-15.0); Lymphocytes # (A) 1.75 X 10*3/uL (0.90-5.00); Lymphocytes % (A) 15.2 %; MCH 26.8 pg (27.0-32.0); MCHC 32.1 g/dL (32.0-37.0); MCV 83.6 FL (80.0-97.0); Mean Platelet Volume 10.1 FL (9.5-12.2); Monocytes # (A) 0.68 X 10*3/uL (0.20-1.00); Monocytes % (A) 5.9 %; NRBC Per 100 WBC 0 X 10*3/uL (0.00-0.01); Neutrophils # (A) 9.01 X 10*3/uL (1.80-7.70); Neutrophils % (A) 78.1 %; Platelet Count 707 X 10*3/uL (140-440); RBC 3.54 X 10*6/uL (4.10-5.20); RDW 17.4 % (11.5-14.5); WBC 11.53 X 10*3/uL (4.50-10.00)
[2023-04-04 10:05] LABS: Calcium 9.6 mg/dL (8.7-10.3); Carbon Dioxide 28.1 mmol/L (21.6-31.8); Chloride 98 mmol/L (96-109); Glucose 96 mg/dL (70-110); Potassium 4.5 mmol/L (3.5-5.5); Sodium 135 mmol/L (135-145)
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
[2023-04-04] MEDS: polyethylene glycoL 3350 17 GM POWD.PACK PO SCH (17:42)
[2023-04-05] MEDS: amLODIPine 5 MG TAB PO STA (11:35)
--- NOTE | 2023-04-05 15:14 | P.DS ---
Providers Date of admission: 04/05/23 10:12 Expected date of discharge: 04/05/23 Attending physician: Anmol Chavez MD Consults: 04/02/23 08:18 Consult Physician Routine Consulting Provider: Preston Spencer Consult Reason/Comments: lung cancer, chemo side effects Do you want consulting provider notified?: Yes 04/02/23 14:44 Consult Physician Routine Consulting Provider: Paras Couch Consult Reason/Comments: met lung cancer Do you want consulting provider notified?: Already Contacted 04/02/23 14:45 Consult Physician Routine Consulting Provider: Lucas Healy Consult Reason/Comments: known to service, pleurx drain management Do you want consulting provider notified?: Yes Primary care physician: Anmol Chavez MD Hospital Course: Final Diagnoses: Recently diagnosed metastatic pulmonary adenocarcinoma( from thoracentesis on 02/24/2023),Stage IV NSCLC, with rib fracture, nausea, vomiting, jaw pain Prior radiology studies reporting thoracic osseous lesions suspicious for metastatic disease, left pleural vax catheter in a patient with history of recurrent left-sided pleural effusion. Chronic tobacco dependence of greater than 40 years Right breast mass, being worked up in the outpatient setting History of hypertension History of migraine cephalgia Chronic back pain status post spine nerve stimulator implanted at [facility] course:This is a 58-year-old female with past medical history significant for recent diagnosis of metastatic pulmonary adenocarcinoma from thoracentesis on 02/24/2023, presented to the ER with nausea vomiting, left jaw pain. Patient reports on Wednesday she met with Dr. Spencer, discussed plan regarding her newly diagnosed CA. Proceeded Wednesday to [facility] for mapping when she developed increased dizziness, diaphoresis, nausea and vomiting and was unable to complete the visit. Proceeded home, symptoms worsened and she came to the ER. Reports right-sided chest wall pain. X-ray of right ribs report right 11th rib cortical defect suggestive of fracture, left thoracotomy tube with tip in appropriate position. denies chest pain, palpitations or increase in shortness of breath. KUB reported no evidence of bowel obstruction, nonspecific bowel gas pattern, bilateral hip arthroplasties, left thoracotomy tube visualized, no evidence of pneumothorax, small left pleural effusion .jeff roids and morphine initiated for increased pain relief. Oncology on consult. Afebrile, normal WBC, hemoglobin 9.8, platelets 711. Sodium 137, potassium 4.4, bicarb 27, BUN 4.9, creatinine 0.5, troponins negative x 3, magnesium 1.9, LFTs within normal limits. Evaluated by cardiothoracic surgery, oncology and radiation oncology. Mapping completed this morning with schedule palliative radiation to start tomorrow, to optimize pain control. Palliative chemotherapy to follow palliative radiation. Patient will be discharged home today in a stable condition with guarded prognosis pending final DC recommendations and clearance as per oncology and radiation oncology. The impression and plan of care has been dictated as directed. : I performed a history and examination of this patient, discussed the same with the dictator. I agree with the dictator's note ,documented as a scribe. Any additional findings or plans will be noted. Patient Condition at Discharge: Stable Plan - Discharge Summary New Discharge Prescriptions: New amLODIPine [Norvasc] 10 mg PO DAILY #30 tablet Continue tiZANidine [Zanaflex] 4 mg PO Q8HR PRN PRN Reason: Muscle Spasm Omeprazole [PriLOSEC] 20 mg PO BID Ondansetron [Zofran] 4 mg PO Q4H PRN PRN Reason: Nausea And Vomiting HYDROcodone/APAP 5-325MG [[place] 5-325] 1 tab PO Q6HR PRN PRN Reason: Pain cloNIDine HCL [Catapres] 0.1 mg PO HS polyethylene glycoL 3350 [Miralax] 17 gm PO DAILY oxyCODONE HCL/ACETAMINOPHEN [Percocet 10-325 mg] 1 tab PO Q4HR PRN 3 Days #15 tab PRN Reason: Pain Folic Acid 1 mg PO DAILY Discontinued amLODIPine [Norvasc] 5 mg PO DAILY Discharge Medication List tiZANidine [Zanaflex] 4 mg PO Q8HR PRN 10/17/21 [History] Omeprazole [PriLOSEC] 20 mg PO BID 12/24/21 [History] cloNIDine HCL [Catapres] 0.1 mg PO HS 11/04/22 [History] polyethylene glycoL 3350 [Miralax] 17 gm PO DAILY 03/16/23 [History] oxyCODONE HCL/ACETAMINOPHEN [Percocet 10-325 mg] 1 tab PO Q4HR PRN 3 Days #15 tab 03/29/23 [Rx] Folic Acid 1 mg PO DAILY 04/01/23 [History] HYDROcodone/APAP 5-325MG [[place] 5-325] 1 tab PO Q6HR PRN 04/01/23 [History] Ondansetron [Zofran] 4 mg PO Q4H PRN 04/01/23 [History] amLODIPine [Norvasc] 10 mg PO DAILY #30 tablet 04/05/23 [Rx] Follow up Appointment(s)/Referral(s): Preston Spencer [STAFF PHYSICIAN] - 1 Week Anmol Chavez MD [Primary Care Provider] - 1 Week
--- NOTE | 2023-04-05 17:51 | P.PN ---
Subjective Progress Note Date: 04/05/23 Principal diagnosis: N,V, near syncope In follow-up today patient is tearful, she reports that she is still feeling like she is going to pass out at times. She does have a stimulator in her back for previous history of back pain but, this has not been able to be used for several months now because of bone metastases-per patient. She does feel she has adequate pain control here in the hospital. She is going to be starting radiation tomorrow, she was simulated today. She is concerned about when her chemo is going to start. She is also concerned that home care is not able to assist her more with the Pleurx drain. Objective - Vital Signs Vital signs: Vital Signs Temp 98.3 F 04/05/23 13:00 Pulse 65 04/05/23 13:00 Resp 19 04/05/23 13:00 BP 162/66 04/05/23 13:00 Pulse Ox 97 04/05/23 13:00 FiO2 Intake & Output 04/04/23 04/05/23 04/05/23 18:59 06:59 18:59 Other: Voiding Method Toilet Toilet # Voids 2 2 - Constitutional General appearance: Present: average body habitus, cooperative, no acute distress - EENT Eyes: Present: anicteric sclerae, edentulous ENT: Present: hearing grossly normal - Respiratory Details: Respirations even and unlabored at rest - Cardiovascular Details: Skin warm and dry to the touch - Peripheral edema leg Peripheral Edema: bilateral: None - Gastrointestinal General gastrointestinal: Present: soft - Neurologic Neurologic: Present: CNII-XII intact - Musculoskeletal Musculoskeletal: Present: strength equal bilaterally - Psychiatric Psychiatric: Present: A&O x's 3, appropriate affect, intact judgment & insight - Labs CBC & Chem 7: 04/04/23 05:53 04/04/23 05:53 Assessment and Plan (1) Non-small cell lung cancer metastatic to bone Current Visit: Yes Status: Acute Priority: High Code(s): C34.90 - MALIGNANT NEOPLASM OF UNSP PART OF UNSP BRONCHUS OR LUNG; C79.51 - SECONDARY MALIGNANT NEOPLASM OF BONE SNOMED Code(s): 316283949 (2) Pleural effusion Current Visit: Yes Status: Acute Priority: High Code(s): J90 - PLEURAL EFFUSION, NOT ELSEWHERE CLASSIFIED SNOMED Code(s): 90675785 Plan: Metastatic non-small cell lung cancer to the bone -Patient has not yet started chemotherapy yet. She voiced her concerns about when she is going to start. Message was sent to oncology nurses to get patient scheduled to begin next week. Painful bony metastasis -Radiation to painful bony metastases. Patient has been seen by Radiation Onc ology. She has been simulated. She is due to start radiation tomorrow. Will verify with radiation how many days are planned so that chemotherapy can be started after that. -Patient has a history of chronic pain. She has a history of a stimulator in the back which she is currently not able to use. The pain radiates from her back to her side and shoots up into her jaw. The pain can be so intense that it can cause her to have feelings of near syncope. Will work with the patient for adequate pain control. -Pt currently on steroids Patient had complaints about home care nursing not being able to continue draining her Pleurx catheter-she was supposed to educated and do it herself. Unfortunately, the procedure and positioning makes her dizzy and nauseated. I have sent an order for palliative care-if they can provide her with this type of support/service. If not, try a different homecare to see if they will cont doing pleurex drainage for pt. Patient does live alone and could certainly use some additional assistance and support.
[2023-04-06] MEDS ORDERED: MORPHINE SULFATE ER 30 MG TABLET PO SCH ×2 (09:15→21:00)
[2023-04-06] MEDS: MORPHINE SULFATE ER 15 MG TABLET PO ONE (09:43)
[2023-04-06] MEDS: amLODIPine 5 MG TAB PO STA (10:41)
[2023-04-06] MEDS: dexAMETHasone 4 MG TAB PO SCH (10:41)
[2023-04-06 12:13] VITALS: BP 150/68
[2023-04-06 12:43] VITALS: PULSE 81; RESP 16; TEMP 98.9
--- NOTE | 2023-04-06 14:02 | P.PN ---
Subjective Progress Note Date: 04/06/23 Principal diagnosis: N,V, near syncope In follow-up today patient reports she feels much better. Pain is well controlled. All of her concerns from yesterday have been addressed. Denies fever, nausea is when she is in pain, no vomiting in the last 24 hours, she had a BM with use of miralax. Objective - Vital Signs Vital signs: Vital Signs Temp 98.9 F 04/06/23 11:42 Pulse 81 04/06/23 11:42 Resp 16 04/06/23 11:42 BP 150/68 04/06/23 11:57 Pulse Ox 95 04/06/23 11:42 FiO2 Intake & Output 04/05/23 04/06/23 04/06/23 18:59 06:59 18:59 Intake Total 1080 Balance 1080 Intake: Oral 1080 Other: Voiding Method Toilet # Voids 2 3 - Constitutional General appearance: Present: average body habitus, cooperative, no acute distress - EENT Eyes: Present: anicteric sclerae, EOMI ENT: Present: hearing grossly normal - Respiratory Respiratory: bilateral: CTA - Cardiovascular Rhythm: regular Heart sounds: normal: S1, S2 Abnormal Heart Sounds: Absent: systolic murmur, diastolic murmur, rub, S3 Gallop, S4 Gallop, click, other - Peripheral edema leg Peripheral Edema: bilateral: None - Gastrointestinal General gastrointestinal: Present: normal bowel sounds, soft - Integumentary Integumentary: Present: normal - Neurologic Neurologic: Present: CNII-XII intact - Musculoskeletal Musculoskeletal: Present: strength equal bilaterally - Psychiatric Psychiatric: Present: A&O x's 3, appropriate affect, intact judgment & insight - Labs CBC & Chem 7: 04/04/23 05:53 04/04/23 05:53 Assessment and Plan (1) Non-small cell lung cancer metastatic to bone Current Visit: Yes Status: Acute Priority: High Code(s): C34.90 - MALIGNANT NEOPLASM OF UNSP PART OF UNSP BRONCHUS OR LUNG; C79.51 - SECONDARY MALIGNANT NEOPLASM OF BONE SNOMED Code(s): 414647025 (2) Pleural effusion Current Visit: Yes Status: Acute Priority: High Code(s): J90 - PLEURAL EFFUSION, NOT ELSEWHERE CLASSIFIED SNOMED Code(s): 71832844 Plan: Metastatic non-small cell lung cancer to the bone -Patient has not yet started chemotherapy yet. Plan is to start next week, after radiation complete. Pt instructed to call office if she has not been contacted about a start date and time by Wednesday Painful bony metastasis -Radiation to painful bony metastases. Patient has been seen by Radiation Oncology. She has been simulated. She is due to start radiation tomorrow. Will verify with radiation how many days are planned so that chemotherapy can be started after that. -Patient has a history of chronic pain. She has a history of a stimulator in the back which she is currently not able to use. The pain radiates from her back to her side and shoots up into her jaw. The pain can be so intense that it can cause her to have feelings of near syncope. Verified at office, pt has a referral to pain mgmt. -Pain meds adjusted. Rx sent from office so pt has enough medication to get her to f/u appts. RN contacted with info -Pt instructed to take miralax 1-2 times a day to prevent narcotic induced constipation -Steroid Rx was already sent, pt will complete Discussed with CM about pt not being able to manage process of pleural fluid drainage from Pleurx catheter. Pt cannot tolerate procedure and positioning-it makes her dizzy and nauseated. Palliative care only comes once a month so, not an option. CM and RN trying to see if there are any options for assistance with drainage. If not, pt may have to have a friend learn how to do and come help her with it.
[2023-04-06] MEDS: MORPHINE SULFATE IR 15 MG TABLET PO PRN (15:03)
--- NOTE | 2023-04-07 14:17 | P.PN ---
Subjective Progress Note Date: 04/04/23 58-year-old female with past medical history significant for recent diagnosis of metastatic pulmonary adenocarcinoma from thoracentesis on 02/24/2023, presented to the ER with nausea vomiting, left jaw pain. Patient reports on Wednesday she met with Dr. Spencer, discussed plan regarding her newly diagnosed CA. Proceeded Wednesday to [facility] for mapping when she developed increased dizziness, diaphoresis, nausea and vomiting and was unable to complete the visit. Proceeded home, symptoms worsened and she came to the ER. Reports right-sided chest wall pain. X-ray of right ribs report right 11th rib cortical defect suggestive of fracture, left thoracotomy tube with tip in appropriate position. denies chest pain, palpitations or increase in shortness of breath. KUB reported no evidence of bowel obstruction, nonspecific bowel gas pattern, bilateral hip arthroplasties, left thoracotomy tube visualized, no evidence of pneumothorax, small left pleural effusion .steroids and morphine initiated for increased pain relief. Oncology on consult. Afebrile, normal WBC, hemoglobin 9.8, platelets 711. Sodium 137, potassium 4.4, bicarb 27, BUN 4.9, creatinine 0.5, troponins negative x 3, magnesium 1.9, LFTs within normal limits. 04/04/2023 continues to have nausea/vomiting episodes:likely related to underlying lung cancer. Advance diet as tolerated. Prior CT did show some thickening of the gastric outlet - could consider EGD if no improvement. Back pain: Suspicious findings in T3/4 concerning for bone metastases. Radiation Oncology recommending palliative radiation; patient is agreeable to initiate a course, but was hospitalized prior to CT simulation. She is scheduled for Simmulation on Wednesday at 9 AM. We will continue to optimize pain control, as I discussed that the palliative benefit of radiotherapy does take some time to be realized. Stage IV NSCLC: Recently diagnosed, and the patient has yet to start palliative chemotherapy. She will look to start this following her palliative radiation. Objective - Vital Signs Vital signs: Vital Signs Temp 98.5 F 04/03/23 19:10 Pulse 54 L 04/03/23 19:10 Resp 20 04/03/23 20:05 BP 137/67 04/03/23 22:19 Pulse Ox 97 04/03/23 19:10 FiO2 Intake & Output 04/03/23 04/03/23 04/04/23 06:59 18:59 06:59 Other: Voiding Method Toilet Toilet Toilet # Voids 1 2 - Exam GENERAL: Sitting up on stretcher, alert and oriented x 3, no acute distress HEENT: Normocephalic, conjunctivae normal. eyes normal. NECK: Supple, no JVD. CARDIOVASCULAR: S1, S2 regular.No murmur RESPIRATION: Unlabored, equal air entry ,breath sounds diminished in the bases. Left Pleurx cath. ABDOMEN: Soft, nondistended, nontender . No guarding. LEGS: No edema. no swelling PSYCHIATRY: Alert and oriented X3, mood and affect normal. NERVOUS SYSTEM: Cranial N 2-12 grossly normal. No focal deficits. Strength and sensation grossly intact. Skin: Warm and dry, no rash - Labs CBC & Chem 7: 04/04/23 05:53 04/04/23 05:53 Assessment and Plan Assessment: Recently diagnosed metastatic pulmonary adenocarcinoma( from thoracentesis on 02/24/2023), with rib fracture, nausea, vomiting, jaw pain Prior radiology studies reporting thoracic osseous lesions suspicious for metastatic disease, left pleural vax catheter in a patient with history of recurrent left-sided pleural effusion. Chronic tobacco dependence of greater than 40 years Right breast mass, being worked up in the outpatient setting History of hypertension History of migraine cephalgia Chronic back pain status post spine nerve stimulator implanted at [facility] Plan: Continue on current medication regimen ,monitoring and symptomatic treatment. IV fluid hydration. Antiemetics pain managementdexamethasone and morphine ordered. Oncology consult in place, recommendations pending. PPI ordered for GI prophylaxis.
== END 2023-04-06 16:00 | disposition home health service (06) | DRG 181 ==
LOC: EC 12:29 → SUPCPDRO 12:29 → 6NMEDSUR 15:14 → 5NMEDONC 04-02 05:33 → OBSVTOIN 04-05 10:12
PROVIDERS: ADMIT Family Medicine; ATTEND Family Medicine
PROC: DB021ZZ Beam Radiation of Lung using Photons 1 - 10 MeV (ICD-10-PCS; principal; 2023-04-06)
PROC: DP0C1ZZ Beam Radiation of Other Bone using Photons 1 - 10 MeV (ICD-10-PCS; principal; 2023-04-06)
DX: C34.12 Malignant neoplasm of upper lobe, left bronchus or lung (principal); C79.51 Secondary malignant neoplasm of bone; S22.31XA Fracture of one rib, right side, initial encounter for closed fracture; J91.0 Malignant pleural effusion; G89.3 Neoplasm related pain (acute) (chronic); Z98.1 Arthrodesis status; Z96.651 Presence of right artificial knee joint; Z96.641 Presence of right artificial hip joint; Z79.899 Other long term (current) drug therapy; N63.10 Unspecified lump in the right breast, unspecified quadrant; J43.9 Emphysema, unspecified; I10 Essential (primary) hypertension; F32.A Depression, unspecified; Z87.891 Personal history of nicotine dependence
CPT/HCPCS: 36415; 74018; 77280; 77290; 77307; 77332; 77334; 77412; 80048; 80053; 82150; 83735; 84484; 85025; 85610; 85730; 93005; 96361; 96374; 96375; 96376; 99285

== ENCOUNTER 2023-04-20 16:57 | Emergency (ER) | payer MEDICARE, OTHER ==
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
[2023-04-20] MEDS: KETOROLAC 15 MG/ML 1 ML VIAL IVP STA ×2 (18:06→20:33)
[2023-04-20] MEDS: HYDROmorphone 0.5 MG/0.5 ML SYRINGE IVP STA ×2 (18:06→19:34)
[2023-04-20] MEDS: LORazepam 2 MG/ML INJ IV STA (18:07)
--- NOTE | 2023-04-20 18:11 | XR ---
EXAMINATION TYPE: XR chest 2V DATE OF EXAM: 04/20/2023 5:44 PM CLINICAL INDICATION:Female, 58 years old with history of difficulty breathing; COMPARISON: Chest radiographs from 04/01/2023 TECHNIQUE: XR chest 2V Frontal and lateral views of the chest. FINDINGS: Lungs/Pleura: There is no evidence of pleural effusion, focal consolidation, or pneumothorax. Pulmonary vascularity: Unremarkable. Heart/mediastinum: Cardiomediastinal silhouette is unremarkable. Musculoskeletal: No acute osseous pathology. No stimulator lead terminates over the spine. Left thoracotomy tube in place. No evidence for pneumothorax. IMPRESSION: Left thoracotomy tube in place without evidence of pneumothorax.
[2023-04-20 18:13] LABS: Anisocytosis Slight; Basophils # (A) 0.1 k/uL (0-0.2); Basophils % (A) 0 %; Eosinophils # (A) 0.2 k/uL (0-0.7); Eosinophils % (A) 1 %; HCT 34.1 % (34.0-46.0); HGB 10.8 gm/dL (11.4-16.0); Hypochromasia Slight; Lymphocytes # (A) 1.2 k/uL (1.0-4.8); Lymphocytes % (A) 8 %; MCH 27.5 pg (25.0-35.0); MCHC 31.7 g/dL (31.0-37.0); MCV 86.8 fL (80.0-100.0); Mean Platelet Volume 6.8; Monocytes # (A) 0.5 k/uL (0-1.0); Monocytes % (A) 3 %; Neutrophils # (A) 13.5 k/uL (1.3-7.7); Neutrophils % (A) 87 %; Platelet Count 418 k/uL (150-450); RBC 3.93 m/uL (3.80-5.40); RDW 16.9 % (11.5-15.5); WBC 15.6 k/uL (3.8-10.6)
[2023-04-20 18:29] LABS: ALT 17 U/L (4-34); AST 16 U/L (14-36); African American GFR (CKD) >90 (>60 ml/min/1.73 sqM); Alkaline Phosphatase 132 U/L (38-126); Anion Gap 5 mmol/L; Blood Urea Nitrogen 15 mg/dL (7-17); Calcium 9.7 mg/dL (8.4-10.2); Carbon Dioxide 31 mmol/L (22-30); Chloride 101 mmol/L (98-107); Glucose 115 mg/dL (74-99); Non-African American GFR(CKD) >90 (>60 ml/min/1.73 sqM); Potassium 4.3 mmol/L (3.5-5.1); Sodium 137 mmol/L (137-145); Total Bilirubin 0.3 mg/dL (0.2-1.3)
[2023-04-20 18:32] LABS: INR 0.9 (<1.2); Partial Thromboplastin Time 21.4 sec (22.0-30.0); Prothrombin Time 10.2 sec (10.0-12.5)
[2023-04-20 19:09] VITALS: RESP 18
--- NOTE | 2023-04-20 19:40 | CT ---
EXAMINATION TYPE: CT chest angio for PE CT DLP: 244.8 mGycm, Automated exposure control for dose reduction was used. DATE OF EXAM: 04/20/2023 7:22 PM COMPARISON: None. CLINICAL INDICATION:Female, 58 years old with history of MAGDIEL, elevated d-dimer; MAGDIEL. Elevated D-dimer . Lung and bone CA. TECHNIQUE/CONTRAST: CTA scan of the thorax is performed with IV Contrast, patient injected with 100 ml mL of Isovue 300, MIP images are created and reviewed these are created on a separate workstation.. FINDINGS: Pulmonary Artery: There is no evidence for a filling defect within the pulmonary vasculature to sugge st acute pulmonary embolism. The pulmonary artery is of normal size. Lungs/Pleura: Trace left pleural effusion is identified. There is redemonstration of a heterogenous a nd spiculated left upper lung mass with associated pleural thickening involving the medial left lung and extension into the mediastinum, not significantly changed in the interval. A left-sided drainage catheter is seen terminating near the lung apex. Scattered emphysematous changes are identified. Airway: Large airways are patent. Heart: Heart is within normal limits for size. Vasculature: Mild atherosclerotic calcifications are present throughout the aorta and its branches. Mediastinum: Few prominent reactive lymph nodes are identified Musculoskeletal: Spinal stimulator leads are seen terminating in the mid thoracic spine. There is interval progression of lytic osseous lesions involving the T3 and T4 vertebral bodies, as w ell as the T12 and L1 vertebral bodies which are new in the interval. Soft Tissues: Unremarkable. Lower neck: No significant findings. Upper Abdomen: No significant findings. IMPRESSION: 1. No evidence of pulmonary embolism. 2. Stable heterogenous mass involving the medial left upper lung and mediastinum, concerning for unde rlying malignancy. 3. Interval progression of osseous disease involving the upper thoracic spine, with new lesions now s een involving the T12 and L1 vertebral bodies. 4. Left pleural drainage catheter with small residual pleural effusion.
[2023-04-20] MEDS: MAG HYDROX/AL HYDROX/SIMETH 30 ML, HYOSCYAMINE ELIXIR 10 ML, LIDOCAINE VISCOUS 2% 10 ML PO STA (19:41)
[2023-04-20] MEDS: IPRATROPIUM-ALBUTEROL 3 ML NEB INHALATION STA (19:41)
[2023-04-20] MEDS: HYDROmorphone 1 MG/ML 1 ML SYRINGE IVP STA (20:35)
[2023-04-20] MEDS: LORazepam 1 MG TAB PO STA (20:35)
[2023-04-20 21:06] VITALS: BP 138/66; PULSE 74; TEMP 98
== END 2023-04-20 20:47 | disposition home or self-care (01) ==
LOC: EC 16:57
DX: R06.02 Shortness of breath (principal); K30 Functional dyspepsia; Y84.2 Radiological procedure and radiotherapy as the cause of abnormal reaction of the patient, or of later complication, without mention of misadventure at the time of the procedure; I10 Essential (primary) hypertension; M19.90 Unspecified osteoarthritis, unspecified site; F32.A Depression, unspecified; F12.90 Cannabis use, unspecified, uncomplicated; Z79.899 Other long term (current) drug therapy; Z87.891 Personal history of nicotine dependence; Z88.1 Allergy status to other antibiotic agents; Z88.2 Allergy status to sulfonamides; Z88.5 Allergy status to narcotic agent; Z88.8 Allergy status to other drugs, medicaments and biological substances; Z91.041 Radiographic dye allergy status; Z20.822 Contact with and (suspected) exposure to COVID-19
CPT/HCPCS: 36415; 94640; 93005; 85379; 80053; 83605; 84484; 85025; 85610; 85730; 87636; 71046; 71275; 99285; 96374; 96375 ×2; 96376 ×2; J2060; J1170 ×2; J1885; Q9967

== ENCOUNTER 2023-04-30 10:31 | Inpatient (IN) | payer MEDICARE, OTHER ==
[2023-04-30 11:06] LABS: Anisocytosis Slight; Basophils % (A) 0 %; Eosinophils # (A) 0.1 k/uL (0-0.7); Eosinophils % (A) 1 %; HCT 34.5 % (34.0-46.0); HGB 10.9 gm/dL (11.4-16.0); Hypochromasia Slight; Lymphocytes # (A) 0.9 k/uL (1.0-4.8); Lymphocytes % (A) 8 %; MCHC 31.6 g/dL (31.0-37.0); MCV 85.5 fL (80.0-100.0); Mean Platelet Volume 6.9; Monocytes # (A) 0.5 k/uL (0-1.0); Monocytes % (A) 5 %; Neutrophils # (A) 9.5 k/uL (1.3-7.7); Neutrophils % (A) 85 %; Platelet Count 542 k/uL (150-450); RBC 4.04 m/uL (3.80-5.40); RDW 16.3 % (11.5-15.5); WBC 11.1 k/uL (3.8-10.6)
[2023-04-30] MEDS: ONDANSETRON 4 MG/2 ML VIAL IVP STA (11:07)
[2023-04-30] MEDS: MORPHINE SULFATE 4 MG/ML SYRINGE IVP STA (11:08)
[2023-04-30] MEDS: FAMOTIDINE 20 MG/2 ML VIAL IV STA (11:08)
[2023-04-30] MEDS: MAG HYDROX/AL HYDROX/SIMETH 30 ML, HYOSCYAMINE ELIXIR 10 ML, LIDOCAINE VISCOUS 2% 10 ML PO STA (11:10)
[2023-04-30] MEDS: SODIUM CHLORIDE 0.9% 500 ML 500 ML IV STA (11:11)
[2023-04-30] MEDS: SODIUM CHLORIDE 0.9% 1,000 ML IV STA (11:11)
[2023-04-30 11:22] LABS: ALT 11 U/L (4-34); African American GFR (CKD) >90 (>60 ml/min/1.73 sqM); Albumin 3.7 g/dL (3.5-5.0); Anion Gap 8 mmol/L; Blood Urea Nitrogen 16 mg/dL (7-17); Calcium 9.5 mg/dL (8.4-10.2); Carbon Dioxide 26 mmol/L (22-30); Chloride 100 mmol/L (98-107); Glucose 114 mg/dL (74-99); Lipase 89 U/L (23-300); Non-African American GFR(CKD) >90 (>60 ml/min/1.73 sqM); Sodium 134 mmol/L (137-145); Total Bilirubin 0.6 mg/dL (0.2-1.3)
[2023-04-30 11:26] LABS: AST 32 U/L (14-36); Alkaline Phosphatase 143 U/L (38-126); Potassium 3.8 mmol/L (3.5-5.1)
[2023-04-30] MEDS: HYDROmorphone 1 MG/ML 1 ML SYRINGE IVP STA (12:34)
[2023-04-30] MEDS: METOCLOPRAMIDE 5 MG/ML 2 ML VIAL IVP STA (12:47)
[2023-04-30] MEDS: diphenhydrAMINE 50 MG/ML 1 ML VIAL IVP STA (12:47)
--- NOTE | 2023-04-30 13:23 | XR ---
EXAMINATION TYPE: XR chest 2V DATE OF EXAM: 04/30/2023 COMPARISON: 04/20/2023. HISTORY: Vomiting and epigastric pain. TECHNIQUE: Frontal and lateral views of the chest are obtained. FINDINGS: Left-sided chest tube is unchanged. Small left pleural effusion is unchanged. Volume loss in the left side appears unchanged. Scattered interstitial changes could be chronic or at electasis. Superimposed infection is difficult to exclude. The right lung is clear. IMPRESSION: No significant change.
[2023-04-30] MEDS ORDERED: NALOXONE 0.4 MG/ML 1 ML VIAL IV PRN (13:41)
[2023-04-30] MEDS ORDERED: HYDROmorphone 0.5 MG/0.5 ML SYRINGE IVP PRN (13:41)
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
[2023-04-30] MEDS: SODIUM CHLORIDE 0.9% 1,000 ML IV SCH (14:02)
[2023-04-30] MEDS: HYDROmorphone 1 MG/ML 1 ML SYRINGE IVP PRN (15:27)
[2023-04-30] MEDS: ONDANSETRON 4 MG/2 ML VIAL IVP PRN (17:28)
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
[2023-04-30] MEDS: METOCLOPRAMIDE 5 MG/ML 2 ML VIAL IVP PRN (20:40)
[2023-04-30] MEDS: MORPHINE SULFATE ER 30 MG TABLET PO SCH (21:06)
[2023-04-30] MEDS: cloNIDine HCL 0.1 MG TAB PO SCH (21:07)
[2023-04-30] MEDS: ESCITALOPRAM 10 MG TAB PO SCH (21:07)
[2023-04-30] MEDS: ONDANSETRON 4 MG TAB PO SCH (21:07)
[2023-04-30] MEDS: MORPHINE SULFATE IR 15 MG TABLET PO SCH (21:07)
[2023-05-01] MEDS: ONDANSETRON 4 MG/2 ML VIAL IVP PRN (00:30)
--- NOTE | 2023-05-01 08:20 | P.PN ---
Subjective Progress Note Date: 05/01/23 Patient is still complaining of fairly intractable nausea, as well as upper and mid abdominal pain. She states that she cannot keep any of her oral medications down. Objective - Vital Signs Vital signs: Vital Signs Temp 98.8 F 05/01/23 02:00 Pulse 83 05/01/23 02:00 Resp 16 05/01/23 02:00 BP 167/78 05/01/23 02:00 Pulse Ox 92 L 05/01/23 02:00 FiO2 Intake & Output 04/30/23 05/01/23 05/01/23 18:59 06:59 18:59 Weight 65.771 kg Other: Voiding Method Toilet # Voids 2 - Constitutional General appearance: Present: no acute distress - EENT Eyes: Present: EOMI ENT: Present: hearing grossly normal, normal oropharynx - Respiratory Respiratory: bilateral: CTA - Cardiovascular Rhythm: regular Heart sounds: normal: S1, S2 - Gastrointestinal General gastrointestinal: Present: decreased bowel sounds, soft Localized gastrointestinal: tender: epigastric periumbilical - Integumentary Integumentary: Present: normal - Neurologic Neurologic: Present: CNII-XII intact - Musculoskeletal Musculoskeletal: Present: generalized weakness, strength equal bilaterally - Psychiatric Psychiatric: Present: A&O x's 3, appropriate affect - Labs CBC & Chem 7: 04/30/23 10:56 04/30/23 10:56 Labs: Abnormal Lab Results - Last 24 Hours (Table) 04/30/23 04/30/23 Range/Units 10:56 10:56 WBC 11.1 H (3.8-10.6) k/uL Hgb 10.9 L (11.4-16.0) gm/dL RDW 16.3 H (11.5-15.5) % Plt Count 542 H (150-450) k/uL Neutrophils # 9.5 H (1.3-7.7) k/uL Lymphocytes # 0.9 L (1.0-4.8) k/uL Sodium 134 L (137-145) mmol/L Creatinine 0.51 L (0.52-1.04) mg/dL Glucose 114 H (74-99) mg/dL Alkaline Phosphatase 143 H (38-126) U/L Assessment and Plan (1) Intractable nausea and vomiting Narrative/Plan: This is associated with epigastric and mid abdominal pain. Amylase lipase were normal. There was no evidence of air under the diaphragm on chest x-ray. Abdominal exam is not consistent with evidence of perforation or significant peritoneal irritation. Therefore most likely diagnosis, clinically, is gastritis, related to stress from her ongoing illness as well as steroid use. -The patient will be switched to IV PPI, add acute 12-hour dose -It was discussed with nursing to keep her on IV Zofran on a somewhat scheduled basis -Switch intermediate release p.o. morphine to IV morphine. -CT abdomen pelvis has been ordered, and is pending -Consider endoscopy if symptoms do not improve with the above measures Current Visit: Yes Status: Acute Priority: High Code(s): R11.2 - NAUSEA WITH VOMITING, UNSPECIFIED SNOMED Code(s): 058413937 (2) Abdominal pain Narrative/Plan: As above Current Visit: Yes Status: Acute Priority: Medium Code(s): R10.9 - UNSPECIFIED ABDOMINAL PAIN SNOMED Code(s): 53189044 (3) Non-small cell lung cancer metastatic to bone Narrative/Plan: Assuming that she is able to be discharged, the plan is to start her on systemic chemotherapy plus immunotherapy on 05/03/2023. If the patient is still admitted, this will need to be rescheduled. Current Visit: Yes Status: Acute Priority: High Code(s): C34.90 - MALIGNANT NEOPLASM OF UNSP PART OF UNSP BRONCHUS OR LUNG; C79.51 - SECONDARY MALIGNANT NEOPLASM OF BONE SNOMED Code(s): 517958780
[2023-05-01] MEDS: PANTOPRAZOLE 40 MG/10 ML VIAL IVP SCH (08:27)
[2023-05-01] MEDS: MORPHINE SULFATE 2 MG/ML SYRINGE IVP PRN (08:34)
[2023-05-01] MEDS ORDERED: PANTOPRAZOLE 40 MG/10 ML VIAL IV SCH (09:00)
[2023-05-01] MEDS: PANTOPRAZOLE 40 MG TABLET PO SCH (09:20)
[2023-05-01] MEDS: IOPAMIDOL CONTRAST (ORAL USE) VIAL PO PRN (09:33)
[2023-05-01] MEDS: amLODIPine 10 MG TAB PO SCH (09:35)
[2023-05-01] MEDS: predniSONE 10 MG TAB PO SCH (09:35)
[2023-05-01] MEDS: ALPRAZolam 0.25 MG TAB PO SCH (09:35)
[2023-05-01] MEDS: FOLIC ACID 1 MG TAB PO SCH (09:35)
--- NOTE | 2023-05-01 13:25 | CT ---
EXAMINATION TYPE: CT abdomen pelvis w con CT DLP: 459.1 mGycm, Automated exposure control for dose reduction was used. DATE OF EXAM: 05/01/2023 10:08 AM COMPARISON: Refer CT chest 04/20/2023. CT abdomen pelvis 02/23/2023.215 CLINICAL INDICATION:Female, 58 years old with history of abd pain, n/v, hx metastatic lung cancer; ab d pain TECHNIQUE: Axial CT of the abdomen and pelvis. Sagittal and coronal reformats were created on a [employer] workstation. Contrast used:100 mL of Isovue 370 with IV Contrast, (none if empty) Oral contrast used: without Oral Contrast (none if empty) FINDINGS: LOWER CHEST: Partially seen left chest pleural catheter. Small to moderate sized loculated left pleur al fluid collection greatest posteriorly and posterolaterally at the lung base. There is evidence of mild enhancement of the pleural with split pleural sign. Some irregular thickening of the pleura seen extending to the cranial limit of this exam, appears grossly similar to previous. Slightly increased subpleural opacity in the posterior left lung base compared to prior could be due to subsegmental a telectasis. Right lung base is clear. Heart size upper normal. ABDOMEN LIVER: Small focus of low-attenuation in the anterior liver along the fissure for ligamentum teres, m ost consistent with focal fat. Vague rounded hypodensity in the anterior right lobe image 14 measurin g about 11 mm, not clearly present on prior CT abdomen. Possible tiny vague hypodense lesion adjacent to the right hepatic vein image 11. Portal veins are enhancing. GALLBLADDER AND BILE DUCTS: Unremarkable gallbladder. No biliary ductal dilatation. PANCREAS: Mildly atrophic without acute finding SPLEEN: Unremarkable. ADRENAL GLANDS: Mildly thickened without evidence of mass.. KIDNEYS AND URETERS: Kidneys enhance symmetrically. No evidence of hydronephrosis or visible renal ca lculus. The ureters are unremarkable. PELVIS Assessment is quite limited due to extensive artifacts from bilateral hip prostheses. BLADDER: Incompletely distended, grossly unremarkable as seen. REPRODUCTIVE: Unable to evaluate. ABDOMEN & PELVIS STOMACH AND BOWEL: Stomach and small bowel are nondistended, no evidence of obstruction. The append ix appears to dip into the pelvis, and is mostly obscured by the artifacts but as seen appears within normal limits. Mild/moderate stool throughout the colon, without focal acute abnormality seen. PERITONEUM/RETROPERITONEUM: No evidence of pneumoperitoneum or free fluid. VASCULATURE: Moderate atherosclerotic calcifications are present throughout the abdominal aorta and i ts branches. No evidence of aortic aneurysm. Cannot exclude significant stenoses in either or both c ommon iliac arteries. Splenic vein is patent. Normal caliber IVC. LYMPH NODES: No enlarged by CT size criteria lymph nodes. SOFT TISSUE/ABDOMINAL WALL: Neurostimulator may pack in the superior right gluteal subcutaneous fat. The leads extend towards the spinal canal superiorly but its extend into the chest be on the field-of -view. MUSCULOSKELETAL: Status post fusion changes with left-sided pedicle screws and posterior fixation victor manuel spanning L4-L5-S1, and there are right-sided pedicle screws with posterior fixation victor manuel at L5-S1. No te the tips of the sacral screws extend slightly beyond the anterior cortical margin. Mild/moderate d egenerative changes of the lumbar spine otherwise. Bilateral hip arthroplasties. Presence of the hardware limits evaluation of the bone in some areas, but there are relatively small areas of lucency within the T12, L1, L2, L3 vertebral bodies which were not clearly present 02/23/2023. IMPRESSION: 1. No acute abnormality in the abdomen or pelvis to explain the patient's symptoms. 2. Abnormal appearance of the left lung base, similar to the prior study. Small loculated left pleur al effusion may represent malignant effusion, with infection/empyema unable to be excluded. 3. A couple of small vague hepatic hypodensities are now seen, nonspecific but metastases are differ entially considered. Hepatic protocol MRI could further assess as warranted. 4. Small osseous lytic metastases in the T12, L1, L2, L3 vertebral bodies appear new since 02/23/2023. 5. Other chronic and likely incidental findings, as described above.
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
[2023-05-02 10:14] LABS: Basophils # (A) 0.06 X 10*3/uL (0.00-0.10); Basophils % (A) 0.6 %; Eosinophils # (A) 0.18 X 10*3/uL (0.04-0.35); Eosinophils % (A) 1.9 %; HCT 30.5 % (37.2-46.3); HGB 9.5 g/dL (12.0-15.0); Lymphocytes # (A) 1.58 X 10*3/uL (0.90-5.00); Lymphocytes % (A) 16.6 %; MCH 26.6 pg (27.0-32.0); MCHC 31.1 g/dL (32.0-37.0); MCV 85.4 FL (80.0-97.0); Mean Platelet Volume 9.8 FL (9.5-12.2); Monocytes # (A) 0.86 X 10*3/uL (0.20-1.00); NRBC Per 100 WBC 0 X 10*3/uL (0.00-0.01); Neutrophils # (A) 6.79 X 10*3/uL (1.80-7.70); Neutrophils % (A) 71.2 %; Platelet Count 516 X 10*3/uL (140-440); RBC 3.57 X 10*6/uL (4.10-5.20); WBC 9.54 X 10*3/uL (4.50-10.00)
[2023-05-02 10:49] LABS: Blood Urea Nitrogen 7.5 mg/dL (9.0-27.0); Calcium 9.3 mg/dL (8.7-10.3); Carbon Dioxide 26.2 mmol/L (21.6-31.8); Chloride 98 mmol/L (96-109); Glucose 79 mg/dL (70-110); Potassium 3.8 mmol/L (3.5-5.5); Sodium 136 mmol/L (135-145)
--- NOTE | 2023-05-02 14:19 | P.PN ---
Subjective Progress Note Date: 05/02/23 The patient's epigastric pain and burning, as well as nausea and vomiting appears to have improved significantly with the IV Protonix. However this morning she was complaining of increased pain in the lower thoracic spine area, where her spinal cord stimulator is. She states that the current regimen does not appear to be controlling the pain well. She is also complaining of ongoing discomfort related to the left-sided chest tube. Objective - Vital Signs Vital signs: Vital Signs Temp 97.5 F L 05/02/23 12:26 Pulse 71 05/02/23 12:26 Resp 16 05/02/23 12:26 BP 142/71 05/02/23 12:26 Pulse Ox 95 05/02/23 12:26 FiO2 Intake & Output 05/01/23 05/02/23 05/02/23 18:59 06:59 18:59 Intake Total 1620 Balance 1620 Intake: Oral 1620 Other: Voiding Method Toilet Toilet Toilet # Voids 2 - Constitutional General appearance: Present: mild distress - EENT Eyes: Present: EOMI ENT: Present: hearing grossly normal, normal oropharynx - Neck Thyroid: bilateral: normal size - Respiratory Respiratory: left: diminished - Cardiovascular Rhythm: regular Heart sounds: normal: S1, S2 - Gastrointestinal General gastrointestinal: Present: normal bowel sounds, soft - Integumentary Integumentary: Present: normal - Neurologic Neurologic: Present: CNII-XII intact - Musculoskeletal Musculoskeletal: Present: strength equal bilaterally - Psychiatric Psychiatric Comment(s): Mildly agitated Psychiatric: Present: A&O x's 3 - Labs CBC & Chem 7: 05/02/23 04:20 05/02/23 04:20 Labs: Abnormal Lab Results - Last 24 Hours (Table) 05/02/23 05/02/23 Range/Units 04:20 04:20 RBC 3.57 L (4.10-5.20) X 10*6/uL Hgb 9.5 L (12.0-15.0) g/dL Hct 30.5 L (37.2-46.3) % MCH 26.6 L (27.0-32.0) pg MCHC 31.1 L (32.0-37.0) g/dL RDW 17.0 H (11.5-14.5) % Plt Count 516 H (140-440) X 10*3/uL Immature Gran # 0.07 H (0.00-0.04) X 10*3/uL BUN 7.5 L (9.0-27.0) mg/dL Assessment and Plan (1) Intractable nausea and vomiting Narrative/Plan: This appears to be quite compatible with gastritis, likely due to stress and/or steroids. The patient has experiencing difficult improvement with IV Protonix. Would recommend every 12 hour PPI dosing orally at discharge, along with Carafate. Current Visit: Yes Status: Acute Priority: High Code(s): R11.2 - NAUSEA WITH VOMITING, UNSPECIFIED SNOMED Code(s): 906660017 (2) Abdominal pain Narrative/Plan: Gastritis related, this has improved significantly. Current Visit: Yes Status: Acute Priority: Medium Code(s): R10.9 - UNS PECIFIED ABDOMINAL PAIN SNOMED Code(s): 20290610 (3) Non-small cell lung cancer metastatic to bone Narrative/Plan: The patient was supposed to start cycle 1 of chemoimmunotherapy tomorrow. As she is likely to be still inpatient at that time this will need to be delayed. Current Visit: Yes Status: Acute Priority: High Code(s): C34.90 - MALIGNANT NEOPLASM OF UNSP PART OF UNSP BRONCHUS OR LUNG; C79.51 - SECONDARY MALIGNANT NEOPLASM OF BONE SNOMED Code(s): 081738158 (4) Intractable pain Narrative/Plan: The patient reports significant exacerbation of mid back pain, around the side of her spinal cord stimulator. She has experienced significant pain in this area previously, related to certain movements, as well as coughing. She states that the stimulator cannot be removed as it has been present for a long time, and there is significant scarring related to it. The patient CT scan did not show any new lesions in the area of her pain exacerbation. Most likely this is her chronic musculoskeletal pain, exacerbated by her recent issues with nausea and vomiting, as well as prolonged recumbent position and decreased activity. Given her complicated pain management issues, it was discussed with her that at this time it would be reasonable to continue her on the same regimen for long- acting pain control. Her short acting opioid can be increased transiently, as it is likely that her current pain exacerbation could improve with improvement in her abdominal complaints, and increased activity. Additional supportive measures such as Lidoderm patch would be also appropriate. The same was discussed needed with the admitting service. Continue MS Contin at the same dose. Increase IV morphine to every 3 hours as needed. She will switch back to IR morphine p.o. at the time of discharge. The patient continues to complain of discomfort related to the left chest tube. Consult CT surgery to assess for possible removal. Current Visit: Yes Status: Acute Priority: High Code(s): R52 - PAIN, UNSPECIFIED SNOMED Code(s): 60584279
--- NOTE | 2023-05-02 16:03 | P.PN ---
Subjective Progress Note Date: 05/03/23 58-year-old female, history of recently diagnosed stage IV metastatic pulmonary adenocarcinoma, presents emergency department with chief complaint of intractable nausea vomiting abdominal, chest pain. Patient states that she has metastatic cancer states that she has received some radiation as is scheduled for chemotherapy but states over the last few days she has not been able to bring down she states pain is out of control at this time. She states she has had some admissions for similar reasons. She denies any fevers or chills she states she currently has a drain in for recurrent pleural effusions. Patient reports over the last couple days she has been having increasing abdominal pain and has not been able to keep down Zofran due to nausea and vomiting. She is also complaining of chest pain and describes it as a burning sensation. Upon admission -- CBC showed WBC 11.1, hemoglobin 10.9, platelets 542,000. Creatinine 0.51, GFR greater than 90. Lactic acid 1.1. Bilirubin normal at 0.6. AST 32, ALT 11, ALP 143. Lipase 89. Chest x-ray revealed no acute cardiopulmonary processes. Patient has been given 1.5 L normal saline bolus. She continues on IV hydration. PPI and antiemetics have been ordered. At todays visit she is reporting some improvement in symptoms --Continues to have nausea and vomiting; unable to keep anything down -- CT of the abdomen and pelvis is ordered 05/02/2023 Patient is seen and evaluated in room at bedside; nausea and vomiting have improved; patient reports severe back pain and requesting Duragesic patch Her vital signs are stable Pain management discussed with patient with Dr. Spencer at bedside; he is recommending patient to transition back to oral home pain regimen and discouraging continuous escalation of therapy at this time -Recommending cardiothoracic surgery consult to discontinue Pleurx catheter -- Will add lidocaine patch; consult thoracic surgery for removal of the catheter -- Advance diet as tolerated Objective - Vital Signs Vital signs: Vital Signs Temp 98.2 F 05/02/23 07:39 Pulse 81 05/02/23 07:39 Resp 18 05/02/23 07:39 BP 147/75 05/02/23 07:39 Pulse Ox 95 05/02/23 07:39 FiO2 Intake & Output 05/01/23 05/02/23 05/02/23 18:59 06:59 18:59 Intake Total 1620 Balance 1620 Intake: Oral 1620 Other: Voiding Method Toilet Toilet Toilet # Voids 2 - Exam General appearance: alert, in no apparent distress Head exam: Present: atraumatic, normocephalic, normal inspection Eye exam: Present: normal appearance, PERRL, EOMI. Absent: scleral icterus, conjunctival injection, periorbital swelling ENT exam: Present: normal exam, mucous membranes moist Neck exam: Present: normal inspection, full ROM. Absent: tenderness, meningismus, lymphadenopathy Respiratory exam: Present: normal lung sounds bilaterally, chest wall tenderness. Absent: respiratory distress, wheezes, rales, rhonchi, stridor Cardiovascular Exam: Present: regular rate, normal rhythm, normal heart sounds. Absent: systolic murmur, diastolic murmur, rubs, gallop, clicks GI/Abdominal exam: Present: soft, tenderness, normal bowel sounds. Absent: distended, guarding, rebound, rigid Neurological exam: Present: alert, oriented X3 - Labs CBC & Chem 7: 05/02/23 04:20 05/02/23 04:20 Labs: Abnormal Lab Results - Last 24 Hours (Table) 05/02/23 05/02/23 Range/Units 04:20 04:20 RBC 3.57 L (4.10-5.20) X 10*6/uL Hgb 9.5 L (12.0-15.0) g/dL Hct 30.5 L (37.2-46.3) % MCH 26.6 L (27.0-32.0) pg MCHC 31.1 L (32.0-37.0) g/dL RDW 17.0 H (11.5-14.5) % Plt Count 516 H (140-440) X 10*3/uL Immature Gran # 0.07 H (0.00-0.04) X 10*3/uL BUN 7.5 L (9.0-27.0) mg/dL Assessment and Plan Assessment: 1. Intractable abdominal pain -Patient received IV Dilaudid in ED; will continue with home pain medication regimen with IV Dilaudid for breakthrough pain 2. Intractable nausea and vomiting; Zofran 4 mg every 6 hours as needed -- Patient did receive a dose of IV Reglan which helped 3. Metastatic lung cancer; patient has been evaluated by oncology -Biomarker testing was ordered and was found that IO treatment alone would not be effective and was recommended treatment with carboplatin/Alimta/ICI. Due to insurance issues and obtaining a prior auth as well as multiple hospital admissions, treatment has been delayed. She is scheduled to begin treatment on 05/03/23. She has completed XRT to T- spine earlier this month. -Oncology is planning to proceed with treatment on 05/02, pending course of hospitalization 4. Hypertension; amlodipine 10 mg daily; clonidine 0.1 mg p.o. nightly 5. Osteoarthritis; continue with home dose of morphine sulfate 6. Anxiety; Xanax 0.25 mg daily; Lexapro 10 mg p.o. nightly DVT prophylaxis; SCDs CODE STATUS; full code
[2023-05-02] MEDS: LIDOCAINE 4% PATCH TOPICAL SCH (16:51)
[2023-05-03] MEDS: MORPHINE SULFATE 2 MG/ML SYRINGE IVP STA (08:12)
[2023-05-03] MEDS: LIDOCAINE 1% INJ 10MG/ML (20 ML MDV) ONE (08:16)
--- NOTE | 2023-05-03 08:54 | P.PCN ---
Date of Procedure: 05/03/23 Preoperative Diagnosis: Metastatic Lung CA Postoperative Diagnosis: Same Procedure(s) Performed: Removal of left sided pleurX catheter Anesthesia: local Surgeon: Lucas Healy Emt Intermediate #1: Cele Jacome Pathology: none sent Condition: stable Disposition: floor Indications for Procedure: This patient is a 58 year-old F who developed recurrent left sided pleural effusion 2/2 metastatic lung CA. She underwent pleurX catheter placement and recently has not drained much from the catheter. CXR reveals no recurrent effusion. She now requires removal of the catheter due to pain at the site. Operative Findings: Successful removal of catheter Description of Procedure: The patients catheter was prepped and draped. 1% lidocaine was infiltrated in the skin around the cuff. A scissor was used to cut the adhesions from the cuff and catheter was pulled during end inspiration. Sterile dressing was applied. Catheter was removed in its entirety.
[2023-05-03] MEDS ORDERED: MORPHINE CONC SOLN 10mg/0.5mL ORAL SYRG PO PRN (13:41)
[2023-05-03] MEDS ORDERED: MAGNESIUM HYDROXIDE 2,400 MG/30 ML CUP PO PRN (13:43)
--- NOTE | 2023-05-03 14:01 | P.PN ---
Subjective Progress Note Date: 05/03/23 Principal diagnosis: Intractable N,V, pain from malignancy In f/u today pt reports that her N,V/stomach c/o are random, not associated with oral intake or not eating, the pain radiates through to her back. She does report that the changes in the Protonix have helped a little bit. She does not feel that the Zofran is helping at all with nausea. She reports today being "tired", she has been through a lot and questioning if she should be doing any treatment considering all the delays to therapy. She is tired of all of the discomfort she is experiencing. Objective - Vital Signs Vital signs: Vital Signs Temp 98.3 F 05/03/23 07:15 Pulse 71 05/03/23 07:15 Resp 16 05/03/23 07:15 BP 127/64 05/03/23 07:15 Pulse Ox 97 05/03/23 07:15 FiO2 Intake & Output 05/02/23 05/03/23 05/03/23 18:59 06:59 18:59 Intake Total 1620 Balance 1620 Intake: Oral 1620 Other: Voiding Method Toilet Toilet # Voids 3 - Constitutional General appearance: Present: average body habitus, cooperative, no acute di stress - EENT Eyes: Present: anicteric sclerae, EOMI ENT: Present: hearing grossly normal - Respiratory Details: resp even and unlabored - Peripheral edema leg Peripheral Edema: bilateral: None - Gastrointestinal General gastrointestinal: Present: normal bowel sounds, soft - Integumentary Integumentary: Present: normal - Neurologic Neurologic: Present: CNII-XII intact - Musculoskeletal Musculoskeletal: Present: strength equal bilaterally - Psychiatric Psychiatric: Present: A&O x's 3, appropriate affect, intact judgment & insight - Labs CBC & Chem 7: 05/02/23 04:20 05/02/23 04:20 Assessment and Plan (1) Intractable nausea and vomiting Current Visit: Yes Status: Acute Priority: High Code(s): R11.2 - NAUSEA WITH VOMITING, UNSPECIFIED SNOMED Code(s): 296239110 (2) Intractable pain Current Visit: Yes Status: Acute Priority: High Code(s): R52 - PAIN, UNSPECIFIED SNOMED Code(s): 95463557 (3) Non-small cell lung cancer metastatic to bone Current Visit: Yes Status: Acute Priority: High Code(s): C34.90 - MALIGNANT NEOPLASM OF UNSP PART OF UNSP BRONCHUS OR LUNG; C79.51 - SECONDARY MALIGNANT NEOPLASM OF BONE SNOMED Code(s): 434034993 (4) Pleural effusion Current Visit: Yes Status: Acute Priority: Medium Code(s): J90 - PLEURAL EFFUSION, NOT ELSEWHERE CLASSIFIED SNOMED Code(s): 48674769 Plan: Intractable nausea and vomiting -Unclear exact cause but, likely multifactorial including stomach acid, possibly some irritation from recent radiation. Patient does report improvement in her symptoms on increased dose and frequency of Protonix. Carafate added. -Changed Xanax to Ativan for anxiety and its effects on nausea -Will check on patient's symptoms in the morning with these changes. Intractable musculoskeletal pain, multifactoral -Patient has a longstanding history of musculoskeletal pain. She has a spinal stimulator. [facility] has refused to remove it because of scar tissue. The stimulator is not on. -Bone metastases. Patient has had radiation to painful sacral and pelvic bone mets -Reviewed case with Pharm.D. Converted 24 hours of IV morphine to oral morphine dosing. Patient will be started on immediate release morphine, 10 mg every 4 hours as needed for breakthrough pain. She will continue on 30 mg of extended r elease morphine scheduled, twice a day -Senokot/docusate twice daily and milk of mag as needed for prevention of narcotic induced constipation Metastatic non-small cell lung cancer -Patient expressed multiple frustrations today. She is frustrated with the process of getting her cancer diagnosed, having radiation treatments, her symptoms causing delays in starting treatment. She has a rather extensive history of surgeries, dating back many years, she just had bilateral hip replacement last year and chronic pain. She states "i'm just tired". She reports that she is considering hospice. Patient's concerns were listened to. Dr. Hager reviewed with patient that newer treatment options available today can afford the patient relief of cancer symptoms as well as prolong life expectancy without all of the side effects that pt typically associate with cancer treatment. Patient overall is in good shape, ambulatory, and with some additional changes in medications, many of her symptoms can be controlled. She can try treatment and if she feels that it is absolutely not for her-too many symptoms or side effects-then she can stop. He also explained to her that in her situation, opting for hospice is not unrealistic either. We reviewed that getting her current complaints and symptoms under control is absolutely priority-whether she decides for hospice or active treatment. Encouraged her and to make further decisions about how she would like to proceed once her symptoms are better managed. She is agreeable with plan. -As stated above multiple changes to medications. Will follow-up in the a.m. to see how patient is doing. Pleural effusion -Pleurx catheter removed today. Pt reported that is was hard for her to sleep with the catheter in so, with the catheter removed maybe patient can get some rest. Doctor attests: I performed a history and physical examination of this patient, developed impression and plan of care. Discussed with dictator. I agree with dictators note, documented as a scribe.
--- NOTE | 2023-05-03 14:43 | P.PN ---
Subjective Progress Note Date: 05/03/23 Left Pleurx catheter removed earlier this morning, secondary to increased pain at the site .tolerated procedure well. Reporting breakthrough pain, abdominal pain, overwhelming. Reports she is tired, frustrated and exhausted. Frustrated ,anxious regarding delay in therapy treatment. she wishes to have quality of life. Hospice discussed. Patient states she will talk further with oncology and her family. Currently nausea and vomiting controlled, reports PPI has helped. Positive diet this morning. Xanax has been started outpatient and is helping her anxiety. Objective - Vital Signs Vital signs: Vital Signs Temp 98.3 F 05/03/23 07:15 Pulse 71 05/03/23 07:15 Resp 16 05/03/23 07:15 BP 127/64 05/03/23 07:15 Pulse Ox 97 05/03/23 07:15 FiO2 Intake & Output 05/02/23 05/03/23 05/03/23 18:59 06:59 18:59 Intake Total 1620 Balance 1620 Intake: Oral 1620 Other: Voiding Method Toilet Toilet # Voids 3 - Exam PHYSICAL EXAM: VITAL SIGNS: [As above] GENERAL: Alert and oriented x 3, sitting up in bed, crying, distressed, fatigued HEENT: Normocephalic, conjunctivae normal. eyes normal. NECK: Supple, no JVD. CARDIOVASCULAR: S1, S2 regular.No murmur RESPIRATION: Unlabored, equal air entry , diminished ABDOMEN: Soft, nondistended, nontender . No guarding. LEGS: No edema. no swelling NERVOUS SYSTEM: Cranial N 2-12 grossly normal. No focal deficits. Strength and sensation grossly intact. Skin: Warm and dry, no rash - Labs CBC & Chem 7: 05/02/23 04:20 05/02/23 04:20 Assessment and Plan Assessment: Non-small cell lung cancer metastatic to bone Intractable pain Intractable nausea and vomiting Pleural effusion, Pleurx catheter removed to facilitate sleep Chronic pain, spinal nerve stimulator implanted at [facility] Plan: Continue on current medication regimen ,monitoring and symptomatic treatment. Pain management as per oncology. Hospice discussed; patient discussing with her family. Maintain supportive care, reevaluate in a.m. The impression and plan of care has been dictated as directed. : I performed a history and examination of this patient, discussed the same with the dictator. I agree with the dictator's note ,documented as a scribe. Any additional findings or plans will be noted.
--- NOTE | 2023-05-03 15:43 | P.PAINPG ---
Objective - Vital Signs Vital signs: Vital Signs Temp 98.3 F 05/03/23 07:15 Pulse 71 05/03/23 07:15 Resp 16 05/03/23 07:15 BP 127/64 05/03/23 07:15 Pulse Ox 97 05/03/23 07:15 FiO2 Intake & Output 05/02/23 05/03/23 05/03/23 18:59 06:59 18:59 Intake Total 1620 Balance 1620 Intake: Oral 1620 Other: Voiding Method Toilet Toilet # Voids 3 - Labs CBC & Chem 7: 05/02/23 04:20 05/02/23 04:20 PQRS Measure Charge Sheet Comment: HISTORY OF PRESENT ILLNESS: A 58 yr old inpatient female presents today w severe and chronic muscular thoracic pain secondary to adhesions s/p SCS implant for evaluation. Pt states pain level is provoked at 8 /10 in intensity, constant, localized in the mid spine, predominantly axial, sharp in character w occasional shooting pain towards the L & R of midline. Pain is provoked by laying supine. Pain is alleviated by injections, medications, repositioning and rest. PMH: OA, L Lung CA w bony mets, HTN, HH, MDD She has 2 sons that are healthy. PSH: Lumbar surgeries x5, L Total Hip Surgery (Nov 2022), L Thoracentesis for pu lmonary adenocarcinoma, Umbilical Hernia Repair, Partial Hysterectomy, Tubal Lugation, R Carpal Tunnel Syndrome, Colonoscopy, R Knee Arthroplasty, R Knee Replacement w Revision, Cervical RFA SH: Daily tobacco use, Occasional ETOH use, Cannabis use FH: Mo- Colon CA/ Lung CA. Fa- CAD/ Legionairre's Disease. Bro- Schizophrenia. Bro x2- Unknown. Sons x2- No Reported History All: See list Meds: See list REVIEW OF ORGAN SYSTEMS: CONSTITUTIONAL: No fevers or chills. No recent weight loss. NEUROLOGICAL: + numbness and tingling along the distal extremities. No seizure disorders or headaches. MUSCULOSKELETAL: + pain PSYCHIATRIC: Denies current depression or suicidal thoughts. Physical Examinations : Constitutional : Cooperative , not in acute distress . Neurologic : Cranial nerve II to XII intact. No focal neurological deficits. Psychiatric : alert & oriented x 3. Matching mood & appropriate affect. Judgment & insight intact. Musculoskeletal : Cervical Spine Motor strength in the deltoid and biceps: Normal right side. Normal Left side Motor strength biceps and the wrist extensors: Normal right side . Normal left side Motor strength in the triceps muscle: Normal right side. Normal left side Deep tendon reflexes: Normal at the biceps. Normal at Brachioradialis. Normal at triceps Vertebral body tenderness to deep palpation over Cervical facet loading test: positive bilaterally Spurling test: positive bilaterally Neck distraction test: positive bilaterally Ian sign: positive bilaterally Thoracic spine Taut bands w twitch response over BL T5-T9 Lumbar spine Motor strength lower extremities ,thigh and legs 5/5 Right side , 5/5 Left side Deep tendon reflexes : Normal Knee Jerk. Normal Ankle Jerk Vertebral body tenderness over Arriaga Test positive Lumbar facet Loading Test: positive Right / positive Left Range of motion of the lumbar spine Flexion 30 degrees, extension 10 degrees Straight Leg Raise test: Left/ Right p ositive at degree Dalton test: positive right / positive left. Severe tenderness over the Sacroiliac joint on the Right / Left sides Gaenslen test: positive bilaterally Seated flexion test: positive bilaterally. Sacral spine : Severe tenderness over the Sacroiliac joint: right side / left side Range of motion: Flexion of the lumbar spine <60 degrees Range of motion: Extension of the lumbar spine <20 degrees Gaenslen's Test positive Dalton test: positive right side / left side Thigh Thrust Test Sacral Thrust Test Assessment/ Plan : Thoracic paraspinal spasms Recommendation of BL TPIs T4-T10. Pt has lost weight due to a lung CA diagnosis and it is believed that the loss of fat cushion is eliciting pain. May need a series of injections for optimal pain relief. Risks, benefits of procedure di scussed and patient verbalized understanding. Admits to anti- coagulant use or medical history of diabetes. Protocol for discontinuation/ continuation of medications guadalupe procedure discussed. All questions answered. I have spent greater than 30 minutes on patient care today. Dr Mcdonnell was available by phone for the evaluation of this patient. The time was used to review the medical records including relevant urine studies and Prescription history (MAPs), review of the available imaging, evaluation and examination of the patient, coordination of care with the medical staff and if applicable r eferring physicians, as well as creation of the medical record - Pain Location Back Non-Pharmacological Interventions: Darkened Room, Distraction, Position/Reposition Pharmacological Interventions: PRN Medication Pain Comment: see MAR PQRS Narrative: Smoking Status Current every day smoker Blood Pressure [Right Arm] 127/64 Blood Pressure 159/83 Pain Intensity [Back] 10 Pain Intensity 8 Pain Scale Used Numeric (1 - 10) Scale Used Numeric (1 - 10) Hx Alcohol Use (MH) Yes Home Medications: Ambulatory Orders cloNIDine HCL [Catapres] 0.1 mg PO HS 11/04/22 Folic Acid 1 mg PO DAILY 04/01/23 amLODIPine [Norvasc] 10 mg PO DAILY #30 tablet 04/05/23 Acet/Diph/Lido/Bfqa-Wsx-Vxm-Si [Tyl/Benadryl/Lido/Maalox] 5 ml PO Q4-6H PRN #240 ml 04/20/23 ALPRAZolam [Xanax] 0.25 mg PO DAILY 04/30/23 Escitalopram [Lexapro] 10 mg PO HS 04/30/23 Morphine Sulfate Ir [MSIR] 15 mg PO Q4H 04/30/23 Morphine Sulfate [Ms Contin] 30 mg PO Q12HR 04/30/23 Omeprazole [PriLOSEC] 40 mg PO DAILY 04/30/23 ondansetron HCL [Ondansetron HCl] 8 mg PO TID 04/30/23 predniSONE 10 mg PO DAILY 04/30/23 tiZANidine HCL 4 mg PO Q8H PRN 04/30/23 Controlled Substance Measures - Controlled Substance Measures Is patient prescribed a controlled substance at discharge?: No
[2023-05-03] MEDS: SENNOSIDES-DOCUSATE SODIUM 1 EACH TAB PO SCH (16:26)
[2023-05-03] MEDS: LORazepam 0.5 MG TAB PO SCH (16:26)
[2023-05-03] MEDS: MORPHINE ORAL SOLN 10 MG/5 ML CUP PO PRN (16:56)
[2023-05-03] MEDS: SUCRALFATE 1 GM TAB PO SCH (17:35)
--- NOTE | 2023-05-04 09:13 | XR ---
EXAMINATION TYPE: XR chest 1V portable DATE OF EXAM: 05/04/2023 COMPARISON: 04/30/2023 HISTORY: Chest tube removal TECHNIQUE: Single frontal view of the chest is obtained. FINDINGS: Less than 5% left-sided pneumothorax post chest tube removal. Small left pleural effusion and basilar consolidation. Increased density along the medial margin of the left upper lobe. Right ollie ng is clear. There is a stimulator device overlying the thoracic spine. Heart size normal. IMPRESSION: 1. Less than 5% left sided pneumothorax post chest tube removal. 2. Left-sided consolidation and mass stable.
[2023-05-04] MEDS ORDERED: methylPREDNISolone ACETATE 80 MG/ML 1 ML VIAL ONE (09:48)
[2023-05-04] MEDS ORDERED: ROPIVACAINE 5MG/ML 20ML VIAL ONE (09:48)
--- NOTE | 2023-05-04 09:59 | P.PCN ---
Date of Procedure: 05/04/23 Procedure(s) Performed: Preoperative diagnoses= 1. Bilateral Throacic paraspinal myofacial pain T4-10 Postoperative diagnoses= Bilateral Throacic paraspinal myofacial pain T4-10 Procedure: Thoracic fibromyalgia/myalgia Anesthesia: None Estimated blood loss: None Procedure indication: Patient has a history of chronic low back pain that has failed conservative therapy. Procedure description: The patient was seen and identified in the preoperative holding area, risks and benefits and alternative of the procedure and possible complications discussed with the patient, and he agreed with the preceding, patient signed the consent, and vital signs were monitored and were stable throughout the procedure, patient was placed in the prone position on the operative table, vital signs were closely monitored during the procedure. Ultrasound guidance was utilized Ultrasound guidance was utilized for needle placement and visualization of medication injection. Thoracic paraspinal muscles were identified after palpation for tender points a total of 8 trigger points were identified in the erector spinae, paraspinal muscles. A solution consisting of 7 mL of 0.5% ropivacaine and 40 mg of Kenalog was utilized. Then a 25-gauge spinal needle was utilized under direct ultrasound guidance. Needle was identified. Once in the muscle, after negative aspiration 1 ML's injected into each trigger point bilateral. Then the skin was cleaned and a Band-Aid applied, the patient transported to recovery room in stable condition and he was monitored for 30 minutes before he was discharged home and then patient was reexamined before going home and patient was discharged in stable condition and patient will follow up with the pain clinic in a few weeks
[2023-05-04 13:41] VITALS: BP 144/78; PULSE 68; RESP 16; TEMP 98.9
--- NOTE | 2023-05-04 15:09 | P.PN ---
Subjective Progress Note Date: 05/04/23 Principal diagnosis: Intractable N,V, pain from malignancy In f/u today pt reports that after injections with pain services, her pain is significantly improved. Her nausea is resolved at this time. She is taking extended release morphine scheduled, transitioned to oral immediate release morphine for breakthrough pain and has done well, she has not required IV pain medications. She is using the Carafate as well as Protonix. She is taking medications for prevention of narcotic induced constipation. She feels that she is ready to go and wants to get started on chemo. No other physical complaints Objective - Vital Signs Vital signs: Vital Signs Temp 98.9 F 05/04/23 12:52 Pulse 68 05/04/23 12:52 Resp 16 05/04/23 12:52 BP 144/78 05/04/23 12:52 Pulse Ox 94 L 05/04/23 12:52 FiO2 Intake & Output 05/03/23 05/04/23 05/04/23 18:59 06:59 18:59 Intake Total 1620 120 Balance 1620 120 Intake: Oral 1620 120 Other: Voiding Method Toilet # Voids 3 - Constitutional General appearance: Present: average body habitus, cooperative, no acute distress - EENT Eyes: Present: anicteric sclerae, EOMI ENT: Present: hearing grossly normal - Respiratory Details: Respirations even and unlabored at rest and while ambulatory - Cardiovascular Details: Skin warm and dry to the touch, good color - Peripheral edema leg Peripheral Edema: bilateral: None - Integumentary Integumentary: Present: normal - Neurologic Neurologic: Present: CNII-XII intact - Musculoskeletal Musculoskeletal: Present: strength equal bilaterally - Psychiatric Psychiatric: Present: A&O x's 3, appropriate affect, intact judgment & insight - Labs CBC & Chem 7: 05/02/23 04:20 05/02/23 04:20 Assessment and Plan (1) Intractable nausea and vomiting Status: Acute Priority: High Code(s): R11.2 - NAUSEA WITH VOMITING, UNSPECIFIED SNOMED Code(s): 177070191 (2) Intractable pain Status: Acute Priority: High Code(s): R52 - PAIN, UNSPECIFIED SNOMED Code(s): 37674646 (3) Non-small cell lung cancer metastatic to bone Status: Acute Priority: High Code(s): C34.90 - MALIGNANT NEOPLASM OF UNSP PART OF UNSP BRONCHUS OR LUNG; C79.51 - SECONDARY MALIGNANT NEOPLASM OF BONE SNOMED Code(s): 076453289 (4) Pleural effusion Status: Acute Priority: Medium Code(s): J90 - PLEURAL EFFUSION, NOT ELSEWHERE CLASSIFIED SNOMED Code(s): 15752009 Plan: Intractable nausea and vomiting -Improved symptoms with increased frequency of Protonix, Carafate added. Also feel with better pain control she is not feeling as nauseated either. -Changed Xanax to Ativan for anxiety and its effects on nausea. She continues on Ativan 3 times daily -Carafate, Protonix and Ativan prescriptions sent from the office Intractable musculoskeletal pain, multifactoral -Patient has a longstanding history of musculoskeletal pain. She has a spinal stimulator. [facility] has refused to remove it because of scar tissue. The stimulator is not on. -Bone metastases. 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 These prescriptions have been sent from the office. -Senokot/docusate twice daily and milk of mag as needed for prevention of narcotic induced constipation. Patient encouraged to take while she is at home Metastatic non-small cell lung cancer -Patient reports feeling pretty good today with pain control and nausea control. She wants to get started on treatment -Patient performance status adequate for treatment. Message will be sent from the office to get patient scheduled to start treatment. She will be contacted with the start date. She verbalized understanding and agrees with the plan. Pleural effusion -Pleurx catheter removed as there was no significant drainage. Patient slept a little better/little more comfortably without the drain.
== END 2023-05-04 13:55 | disposition home or self-care (01) | DRG 543 ==
LOC: EC 10:31 → 5NMEDONC 13:48
PROVIDERS: ADMIT Family Medicine; ATTEND Family Medicine
PROC: 0WPBX0Z Removal of Drainage Device from Left Pleural Cavity, External Approach (ICD-10-PCS; 2023-05-03)
PROC: 3E0R33Z Introduction of Anti-inflammatory into Spinal Canal, Percutaneous Approach (ICD-10-PCS; principal; 2023-05-04 11:30)
PROC: 3E0R3BZ Introduction of Anesthetic Agent into Spinal Canal, Percutaneous Approach (ICD-10-PCS; principal; 2023-05-04 11:30)
DX: C79.51 Secondary malignant neoplasm of bone (principal); C34.92 Malignant neoplasm of unspecified part of left bronchus or lung; J91.0 Malignant pleural effusion; Z87.891 Personal history of nicotine dependence; F32.A Depression, unspecified; F41.9 Anxiety disorder, unspecified; G89.3 Neoplasm related pain (acute) (chronic); I10 Essential (primary) hypertension; J06.9 Acute upper respiratory infection, unspecified; J43.9 Emphysema, unspecified; Z96.5 Presence of tooth-root and mandibular implants; R59.0 Localized enlarged lymph nodes; K29.70 Gastritis, unspecified, without bleeding; K59.03 Drug induced constipation; M19.90 Unspecified osteoarthritis, unspecified site; T40.605A Adverse effect of unspecified narcotics, initial encounter; N63.10 Unspecified lump in the right breast, unspecified quadrant; K44.9 Diaphragmatic hernia without obstruction or gangrene; G43.909 Migraine, unspecified, not intractable, without status migrainosus; Z79.899 Other long term (current) drug therapy; Z80.1 Family history of malignant neoplasm of trachea, bronchus and lung; Z81.8 Family history of other mental and behavioral disorders; Z82.49 Family history of ischemic heart disease and other diseases of the circulatory system; Z92.3 Personal history of irradiation; Z96.651 Presence of right artificial knee joint; Z98.1 Arthrodesis status; Z96.643 Presence of artificial hip joint, bilateral; Z79.891 Long term (current) use of opiate analgesic; Z28.310 Unvaccinated for COVID-19; Z28.21 Immunization not carried out because of patient refusal; Z88.2 Allergy status to sulfonamides; Z88.8 Allergy status to other drugs, medicaments and biological substances; Z96.82 Presence of neurostimulator
CPT/HCPCS: 20553; 36415; 71045; 71046; 74177; 80048; 80053; 82150; 83605; 83690; 85025; 96361; 96374; 96375; 96376; 99285

== ENCOUNTER → 2023-05-25 | Outpatient (CLI) | payer MEDICARE, OTHER ==
--- NOTE | 2023-05-25 14:04 | XR ---
EXAMINATION TYPE: XR chest 2V DATE OF EXAM: 05/25/2023 COMPARISON: 05/04/2023 TECHNIQUE: PA and lateral views submitted. HISTORY: Shortness of breath FINDINGS: Stimulator leads are noted. There is a left lower lobe infiltrate and small effusion. Underlying COPD . Right lung is clear. There is volume loss noted on the left. Heart size is normal. Osseous structures intact. IMPRESSION: 1. Left lower lobe infiltrate and small pleural effusion 2. COPD.
== END | disposition home or self-care (01) ==
LOC: RADXRMAIN 13:30
PROVIDERS: ATTEND Internal Medicine Hematology & Oncology
DX: C34.12 Malignant neoplasm of upper lobe, left bronchus or lung (principal); J44.9 Chronic obstructive pulmonary disease, unspecified; R91.8 Other nonspecific abnormal finding of lung field; J91.0 Malignant pleural effusion; G89.3 Neoplasm related pain (acute) (chronic); D72.829 Elevated white blood cell count, unspecified
CPT/HCPCS: 71046